=== PATIENT | male | born 1955 | race Caucasian/White ===

== ENCOUNTER → 2017-05-22 | Outpatient (CLI) | payer BC ==
[2017-05-22 07:54] LABS: CHCM 32.1; HCT 41.5 % (39.0-53.0); HDW 2.51; MCH 34.9 pg (25.0-35.0); MCHC 33.8 g/dL (31.0-37.0); MCV 103.4 fL (80.0-100.0); Macrocytosis Slight; Mean Platelet Volume 7.8; RBC 4.01 m/uL (4.30-5.90); RDW 13.2 % (11.5-15.5); WBC 7.1 k/uL (3.8-10.6)
[2017-05-22 08:06] LABS: ALT 25 U/L (21-72); AST 18 U/L (17-59); Anion Gap 8 mmol/L; Blood Urea Nitrogen 18 mg/dL (9-20); Calcium 9.4 mg/dL (8.4-10.2); Carbon Dioxide 27 mmol/L (22-30); Chloride 107 mmol/L (98-107); Cholesterol 215 mg/dL (<200); Creatine Kinase 45 U/L (55-170); Glucose 103 mg/dL (74-99); HDL Cholesterol 71 mg/dL (40-60); Non-African American GFR(MDRD) >60 (>60 ml/min/1.73 sqM); Potassium 4.3 mmol/L (3.5-5.1); Sodium 142 mmol/L (137-145)
== END | disposition home or self-care (01) ==
LOC: LABWHC1 07:04
PROVIDERS: ATTEND Internal Medicine Interventional Cardiology
DX: I25.10 Atherosclerotic heart disease of native coronary artery without angina pectoris (principal)
CPT/HCPCS: 36415; 80048; 80061; 82550; 84443; 84450; 84460; 85027

== ENCOUNTER 2017-10-19 22:16 | Emergency (ER) | payer BC ==
--- NOTE | 2017-10-19 22:39 | ED ---
SOB HPI - General Chief Complaint: Shortness of Breath Stated Complaint: SOB/flu symptoms Time Seen by Provider: 10/19/17 22:32 Source: patient Mode of arrival: wheelchair Limitations: no limitations - History of Present Illness Initial Comments: This patient is 62-year-old man presenting to be evaluated for vomiting and diarrhea, he also did mention the fact that he now has some exertional dyspnea. He was in his usual state of health until Friday when he began having vomiting and diarrhea. He states he had over 10 episodes of each of those. He did not see any blood or coffee-ground material. He was also having a bit of abdominal cramping, but states that the abdominal pain has resolved. Patient states he has not in eating or taking any fluids, and now when he gets up to use the bathroom his heart races and he feels like he is short of breath. -: days(s) Associated Symptoms: nausea/vomiting Treatments Prior to Arrival: none - Related Data Previous Rx's Medication Instructions Recorded Ondansetron Odt [Zofran ODT] 4 mg PO Q8HR PRN #10 tab 10/20/17 Allergies Allergy/AdvReac Type Severity Reaction Status Date / Time Penicillins Allergy Unknown Verified 10/19/17 22:24 Review of Systems ROS Statement: Those systems with pertinent positive or pertinent negative responses have been documented in the HPI. ROS Other: All systems not noted in ROS Statement are negative. Constitutional: Reports: weakness (Generalized). Denies: fever, chills Respiratory: Denies: cough, dyspnea, wheezes Cardiovascular: Reports: as per HPI, palpitations, dyspnea on exertion. Denies : chest pain, edema, syncope Gastrointestinal: Reports: as per HPI, abdominal pain, nausea, vomiting, diarrhea. Denies: constipation, hematemesis, melena, hematochezia Genitourinary: Denies: dysuria, hematuria Musculoskeletal: Denies: back pain Skin: Denies: rash Neurological: Denies: headache, weakness, numbness Past Medical History Past Medical History: GERD/Reflux History of Any Multi-Drug Resistant Organisms: None Reported Past Surgical History: No Surgical Hx Reported Past Psychological History: No Psychological Hx Reported Smoking Status: Former smoker Past Alcohol Use History: None Reported Past Drug Use History: None Reported General Exam Limitations: no limitations General appearance: alert, in no apparent distress Head exam: Present: atraumatic, normocephalic Eye exam: Present: normal appearance ENT exam: Present: normal oropharynx, mucous membranes dry Neck exam: Present: normal inspection, full ROM Respiratory exam: Present: normal lung sounds bilaterally. Absent: respiratory distress, wheezes, rales, rhonchi, stridor Cardiovascular Exam: Present: normal rhythm, tachycardia (Rate approximately 112 my exam), normal heart sounds. Absent: systolic murmur, diastolic murmur, rubs, gallop GI/Abdominal exam: Present: soft, hypoactive bowel sounds. Absent: distended, tenderness, guarding, rebound, rigid, mass, pulsatile mass, hernia Extremities exam: Present: normal inspection, normal capillary refill. Absent: pedal edema, calf tenderness Back exam: Present: normal inspection. Absent: CVA tenderness (R), CVA tenderness (L) Neurological exam: Present: alert Skin exam: Present: warm, dry, intact, normal color. Absent: rash Course Vital Signs 10/19/17 10/19/17 22:21 23:55 Temperature 97.5 F L Pulse Rate 138 H 98 Respiratory 18 Rate Blood Pressure 108/69 O2 Sat by Pulse 98 98 Oximetry Medical Decision Making - Lab Data Result diagrams: 10/19/17 22:56 10/19/17 22:56 Lab Results 10/19/17 10/19/17 10/19/17 Range/Units 22:40 22:56 22:56 WBC 13.3 H (3.8-10.6) k/uL RBC 3.68 L (4.30-5.90) m/uL Hgb 12.3 L (13.0-17.5) gm/dL Hct 34.9 L (39.0-53.0) % MCV 95.0 (80.0-100.0) fL MCH 33.3 (25.0-35.0) pg MCHC 35.1 (31.0-37.0) g/dL RDW 12.6 (11.5-15.5) % Plt Count 365 (150-450) k/uL Neutrophils % 67 % Lymphocytes % 25 % Monocytes % 5 % Eosinophils % 1 % Basophils % 0 % Neutrophils # 9.0 H (1.3-7.7) k/uL Lymphocytes # 3.3 (1.0-4.8) k/uL Monocytes # 0.7 (0-1.0) k/uL Eosinophils # 0.1 (0-0.7) k/uL Basophils # 0.1 (0-0.2) k/uL Sodium 141 (137-145) mmol/L Potassium 3.6 (3.5-5.1) mmol/L Chloride 106 (98-107) mmol/L Carbon Dioxide 23 (22-30) mmol/L Anion Gap 12 mmol/L BUN 32 H (9-20) mg/dL Creatinine 0.80 (0.66-1.25) mg/dL Est GFR (CKD-EPI)AfAm >90 (>60 ml/min/1.73 sqM) Est GFR (CKD-EPI)NonAf >90 (>60 ml/min/1.73 sqM) Glucose 124 H (74-99) mg/dL Calcium 9.4 (8.4-10.2) mg/dL Total Bilirubin 0.4 (0.2-1.3) mg/dL AST 41 (17-59) U/L ALT 61 (21-72) U/L Alkaline Phosphatase 72 (38-126) U/L Total Protein 6.5 (6.3-8.2) g/dL Albumin 3.8 (3.5-5.0) g/dL Amylase 47 (30-110) U/L Lipase 94 (23-300) U/L Urine Color Urine Appearance (Clear) Urine pH (5.0-8.0) Ur Specific Hopkins (1.001-1.035) Urine Protein (Negative) Urine Glucose (UA) (Negative) Urine Ketones (Negative) Urine Blood (Negative) Urine Nitrite (Negative) Urine Bilirubin (Negative) Urine Urobilinogen (<2.0) mg/dL Ur Leukocyte Esterase (Negative) Urine RBC (0-5) /hpf Urine WBC (0-5) /hpf Urine Mucus (None) /hpf Influenza Type A RNA Not Detected (Not Detectd) Influenza Type B (PCR) Not Detected (Not Detectd) 10/20/17 Range/Units 00:23 WBC (3.8-10.6) k/uL RBC (4.30-5.90) m/uL Hgb (13.0-17.5) gm/dL Hct (39.0-53.0) % MCV (80.0-100.0) fL MCH (25.0-35.0) pg MCHC (31.0-37.0) g/dL RDW (11.5-15.5) % Plt Count (150-450) k/uL Neutrophils % % Lymphocytes % % Monocytes % % Eosinophils % % Basophils % % Neutrophils # (1.3-7.7) k/uL Lymphocytes # (1.0-4.8) k/uL Monocytes # (0-1.0) k/uL Eosinophils # (0-0.7) k/uL Basophils # (0-0.2) k/uL Sodium (137-145) mmol/L Potassium (3.5-5.1) mmol/L Chloride (98-107) mmol/L Carbon Dioxide (22-30) mmol/L Anion Gap mmol/L BUN (9-20) mg/dL Creatinine (0.66-1.25) mg/dL Est GFR (CKD-EPI)AfAm (>60 ml/min/1.73 sqM) Est GFR (CKD-EPI)NonAf (>60 ml/min/1.73 sqM) Glucose (74-99) mg/dL Calcium (8.4-10.2) mg/dL Total Bilirubin (0.2-1.3) mg/dL AST (17-59) U/L ALT (21-72) U/L Alkaline Phosphatase (38-126) U/L Total Protein (6.3-8.2) g/dL Albumin (3.5-5.0) g/dL Amylase (30-110) U/L Lipase (23-300) U/L Urine Color Yellow Urine Appearance Clear (Clear) Urine pH 6.0 (5.0-8.0) Ur Specific Hopkins 1.030 (1.001-1.035) Urine Protein 1+ H (Negative) Urine Glucose (UA) Negative (Negative) Urine Ketones Negative (Negative) Urine Blood Negative (Negative) Urine Nitrite Negative (Negative) Urine Bilirubin Negative (Negative) Urine Urobilinogen 2.0 (<2.0) mg/dL Ur Leukocyte Esterase Negative (Negative) Urine RBC 1 (0-5) /hpf Urine WBC 1 (0-5) /hpf Urine Mucus Occasional H (None) /hpf Influenza Type A RNA (Not Detectd) Influenza Type B (PCR) (Not Detectd) - EKG Data -: EKG Interpreted by Me EKG shows normal: sinus rhythm, axis (Normal), intervals (Normal), ST-T waves ( Normal) Rate: tachycardia (Rate 108 bpm) Disposition Clinical Impression: Gastroenteritis Disposition: HOME SELF-CARE Condition: Good Instructions: Gastroenteritis (ED) Prescriptions: Ondansetron Odt [Zofran ODT] 4 mg PO Q8HR PRN #10 tab PRN Reason: Nausea Referrals: None,Stated [Primary Care Provider] - 1-2 days
[2017-10-19] MEDS ORDERED: SODIUM CHLORIDE 0.9% 2,000 ML IV STA (22:49)
[2017-10-19] MEDS ORDERED: ONDANSETRON 4 MG/2 ML VIAL IVP STA (22:49)
[2017-10-19 23:12] LABS: Basophils # (A) 0.1 k/uL (0-0.2); Basophils % (A) 0 %; Eosinophils # (A) 0.1 k/uL (0-0.7); Eosinophils % (A) 1 %; HCT 34.9 % (39.0-53.0); HGB 12.3 gm/dL (13.0-17.5); Lymphocytes # (A) 3.3 k/uL (1.0-4.8); Lymphocytes % (A) 25 %; MCH 33.3 pg (25.0-35.0); MCHC 35.1 g/dL (31.0-37.0); Mean Platelet Volume 7.1; Monocytes # (A) 0.7 k/uL (0-1.0); Monocytes % (A) 5 %; Neutrophils % (A) 67 %; Platelet Count 365 k/uL (150-450); RBC 3.68 m/uL (4.30-5.90); RDW 12.6 % (11.5-15.5); WBC 13.3 k/uL (3.8-10.6)
[2017-10-19 23:16] LABS: ALT 61 U/L (21-72); AST 41 U/L (17-59); Albumin 3.8 g/dL (3.5-5.0); Alkaline Phosphatase 72 U/L (38-126); Amylase 47 U/L (30-110); Anion Gap 12 mmol/L; Blood Urea Nitrogen 32 mg/dL (9-20); Calcium 9.4 mg/dL (8.4-10.2); Carbon Dioxide 23 mmol/L (22-30); Chloride 106 mmol/L (98-107); Glucose 124 mg/dL (74-99); Lipase 94 U/L (23-300); Potassium 3.6 mmol/L (3.5-5.1); Sodium 141 mmol/L (137-145); Total Bilirubin 0.4 mg/dL (0.2-1.3); Total Protein 6.5 g/dL (6.3-8.2)
[2017-10-20 00:52] LABS: Appearance,Urine Clear (Clear); Bilirubin,Urine Negative (Negative); Blood,Urine Negative (Negative); Color,Urine Yellow; Glucose,Urine (UA) Negative (Negative); Ketones,Urine Negative (Negative); Leukocyte Esterase,Urine Negative (Negative); Mucus,Urine Occasional /hpf; Nitrite,Urine Negative (Negative); Protein,Urine 1+ (Negative); RBC,Urine 1 /hpf (0-5); WBC,Urine 1 /hpf (0-5)
[2017-10-20] MEDS ORDERED: SODIUM CHLORIDE 0.9% 1,000 ML IV ONE (00:59)
[2017-10-20] MEDS ORDERED: ONDANSETRON ODT 4 MG TAB PO STA (01:24)
[2017-10-20 01:45] VITALS: BP 123/69; PULSE 96; RESP 16; TEMP 98.2
== END 2017-10-20 01:45 | disposition home or self-care (01) ==
LOC: EC 22:16
DX: K52.9 Noninfective gastroenteritis and colitis, unspecified (principal); Z87.891 Personal history of nicotine dependence; Z88.0 Allergy status to penicillin; Z53.8 Procedure and treatment not carried out for other reasons
CPT/HCPCS: 36415; 93005; 80053; 82150; 83690; 85025; 81001; 87502; 99285; 96374; 96361; J2405

== ENCOUNTER 2017-10-20 13:57 | Inpatient (IN) | payer BC ==
[2017-10-20 14:34] LABS: ALT 39 U/L (21-72); AST 23 U/L (17-59); Albumin 2.5 g/dL (3.5-5.0); Alkaline Phosphatase 47 U/L (38-126); Anion Gap 10 mmol/L; Blood Urea Nitrogen 27 mg/dL (9-20); Calcium 7.7 mg/dL (8.4-10.2); Carbon Dioxide 20 mmol/L (22-30); Chloride 109 mmol/L (98-107); Glucose 186 mg/dL (74-99); Lipase 92 U/L (23-300); Magnesium 1.7 mg/dL (1.6-2.3); Potassium 3.6 mmol/L (3.5-5.1); Sodium 139 mmol/L (137-145); Total Bilirubin 0.2 mg/dL (0.2-1.3); Total Protein 4.6 g/dL (6.3-8.2)
[2017-10-20 14:41] LABS: Basophils % (A) 0 %; Eosinophils # (A) 0.1 k/uL (0-0.7); Eosinophils % (A) 1 %; HCT 22.7 % (39.0-53.0); Lymphocytes # (A) 2.4 k/uL (1.0-4.8); Lymphocytes % (A) 16 %; MCH 33.3 pg (25.0-35.0); MCHC 34.1 g/dL (31.0-37.0); MCV 97.7 fL (80.0-100.0); Mean Platelet Volume 8.2; Monocytes # (A) 0.7 k/uL (0-1.0); Monocytes % (A) 5 %; Neutrophils # (A) 11.9 k/uL (1.3-7.7); Neutrophils % (A) 78 %; Platelet Count 306 k/uL (150-450); RBC 2.32 m/uL (4.30-5.90); RDW 12.8 % (11.5-15.5); WBC 15.2 k/uL (3.8-10.6)
[2017-10-20] MEDS ORDERED: MORPHINE SULFATE 4MG/4ML SYRG IVP STA ×2 (14:42→16:01)
--- NOTE | 2017-10-20 14:42 | ED ---
General Adult HPI - General Chief complaint: GI Bleed Stated complaint: GI BLEED Time Seen by Provider: 10/20/17 14:00 Source: patient, RN notes reviewed Mode of arrival: EMS Limitations: no limitations - History of Present Illness Initial comments: This is a 62-year-old male presents emergency Department stating he's had dark black stools for approximate one week. Patient also has noted that he has had some belly pain and some nausea and vomiting yesterday. Patient came to the emergency department yesterday but did not tell the staff about his black stools. Patient is not complaining of any weakness patient is not quite of shortness of breath or chest pain. Patient denies lightheadedness dizziness or any near syncopal episode. Patient denies any vomiting today but he did vomit yesterday. Patient denies a headache patient denies numbness weakness. Patient denies any recent fever or chills. Patient states she's never had a colonoscopy. Patient denies having a family practice doctor. - Related Data Previous Rx's Medication Instructions Recorded Ondansetron Odt [Zofran ODT] 4 mg PO Q8HR PRN #10 tab 10/20/17 Allergies Allergy/AdvReac Type Severity Reaction Status Date / Time Penicillins Allergy Unknown Verified 10/20/17 14:17 Review of Systems ROS Statement: Those systems with pertinent positive or pertinent negative responses have been documented in the HPI. ROS Other: All systems not noted in ROS Statement are negative. Past Medical History Past Medical History: GERD/Reflux History of Any Multi-Drug Resistant Organisms: None Reported Past Surgical History: No Surgical Hx Reported Past Psychological History: No Psychological Hx Reported Smoking Status: Former smoker Past Alcohol Use History: None Reported Past Drug Use History: None Reported General Exam - General Exam Comments Initial Comments: GENERAL: Patient is well-developed and well-nourished. Patient is nontoxic and well- hydrated and is in mild distress. ENT: Neck is soft and supple. No significant lymphadenopathy is noted. Oropharynx is clear. Moist mucous membranes. Neck has full range of motion without eliciting any pain. EYES: The sclera were anicteric and conjunctiva were pink and moist. Extraocular movements were intact and pupils were equal round and reactive to light. Eyelids were unremarkable. PULMONARY: Unlabored respirations. Good breath sounds bilaterally. No audible rales rhonchi or wheezing was noted. CARDIOVASCULAR: There is a regular rate and rhythm without any murmurs gallops or rubs. ABDOMEN: Soft and nontender with normal bowel sounds. No palpable organomegaly was noted. There is no palpable pulsatile mass. SKIN: Patient's skin is pale. NEUROLOGIC: Patient is alert and oriented x3. Cranial nerves II through XII are grossly intact. Motor and sensory are also intact. Normal speech, volume and content. Symmetrical smile. MUSCULOSKELETAL: Normal extremities with adequate strength and full range of motion. LYMPHATICS: No significant lymphadenopathy is noted PSYCHIATRIC: Normal psychiatric evaluation. Normal interpersonal interactions appears functionally intact in deals appropriately with others. No signs of depression. No signs of anxiety. Limitations: no limitations Course Vital Signs 10/20/17 10/20/17 14:00 14:26 Temperature 97.8 F Pulse Rate 114 H 113 H Respiratory 20 20 Rate Blood Pressure 131/71 116/69 O2 Sat by Pulse 94 L 99 Oximetry Medical Decision Making - Medical Decision Making Patient's guaiac was positive patient's hemoglobin was 7.7 which is a significant drop from yesterday. I ordered a unit of blood for the patient. I spoke with Dr. Jernigan and he agreed to admit the patient. I wrote admitting orders I continued doing CBCs on the floor I consult to GI - Lab Data Result diagrams: 10/20/17 14:10 10/20/17 14:10 Lab Results 10/20/17 10/20/17 10/20/17 Range/Units 14:10 14:10 14:10 WBC 15.2 H (3.8-10.6) k/uL RBC 2.32 L (4.30-5.90) m/uL Hgb 7.7 L D (13.0-17.5) gm/dL Hct 22.7 L (39.0-53.0) % MCV 97.7 (80.0-100.0) fL MCH 33.3 (25.0-35.0) pg MCHC 34.1 (31.0-37.0) g/dL RDW 12.8 (11.5-15.5) % Plt Count 306 (150-450) k/uL Neutrophils % 78 % Lymphocytes % 16 % Monocytes % 5 % Eosinophils % 1 % Basophils % 0 % Neutrophils # 11.9 H (1.3-7.7) k/uL Lymphocytes # 2.4 (1.0-4.8) k/uL Monocytes # 0.7 (0-1.0) k/uL Eosinophils # 0.1 (0-0.7) k/uL Basophils # 0.0 (0-0.2) k/uL PT (9.0-12.0) sec INR (<1.2) APTT (22.0-30.0) sec Sodium 139 (137-145) mmol/L Potassium 3.6 (3.5-5.1) mmol/L Chloride 109 H (98-107) mmol/L Carbon Dioxide 20 L (22-30) mmol/L Anion Gap 10 mmol/L BUN 27 H (9-20) mg/dL Creatinine 0.70 (0.66-1.25) mg/dL Est GFR (CKD-EPI)AfAm >90 (>60 ml/min/1.73 sqM) Est GFR (CKD-EPI)NonAf >90 (>60 ml/min/1.73 sqM) Glucose 186 H (74-99) mg/dL Plasma Lactic Acid Zacarias (0.7-2.0) mmol/L Calcium 7.7 L (8.4-10.2) mg/dL Magnesium 1.7 (1.6-2.3) mg/dL Total Bilirubin 0.2 (0.2-1.3) mg/dL AST 23 (17-59) U/L ALT 39 (21-72) U/L Alkaline Phosphatase 47 (38-126) U/L Total Creatine Kinase 43 L (55-170) U/L Total Protein 4.6 L (6.3-8.2) g/dL Albumin 2.5 L (3.5-5.0) g/dL Lipase 92 (23-300) U/L Stool Occult Blood (Negative) 10/20/17 10/20/17 10/20/17 Range/Units 14:10 14:10 14:10 WBC (3.8-10.6) k/uL RBC (4.30-5.90) m/uL Hgb (13.0-17.5) gm/dL Hct (39.0-53.0) % MCV (80.0-100.0) fL MCH (25.0-35.0) pg MCHC (31.0-37.0) g/dL RDW (11.5-15.5) % Plt Count (150-450) k/uL Neutrophils % % Lymphocytes % % Monocytes % % Eosinophils % % Basophils % % Neutrophils # (1.3-7.7) k/uL Lymphocytes # (1.0-4.8) k/uL Monocytes # (0-1.0) k/uL Eosinophils # (0-0.7) k/uL Basophils # (0-0.2) k/uL PT 10.6 (9.0-12.0) sec INR 1.1 (<1.2) APTT 20.1 L (22.0-30.0) sec Sodium (137-145) mmol/L Potassium (3.5-5.1) mmol/L Chloride (98-107) mmol/L Carbon Dioxide (22-30) mmol/L Anion Gap mmol/L BUN (9-20) mg/dL Creatinine (0.66-1.25) mg/dL Est GFR (CKD-EPI)AfAm (>60 ml/min/1.73 sqM) Est GFR (CKD-EPI)NonAf (>60 ml/min/1.73 sqM) Glucose (74-99) mg/dL Plasma Lactic Acid Zacarias 2.0 (0.7-2.0) mmol/L Calcium (8.4-10.2) mg/dL Magnesium (1.6-2.3) mg/dL Total Bilirubin (0.2-1.3) mg/dL AST (17-59) U/L ALT (21-72) U/L Alkaline Phosphatase (38-126) U/L Total Creatine Kinase (55-170) U/L Total Protein (6.3-8.2) g/dL Albumin (3.5-5.0) g/dL Lipase (23-300) U/L Stool Occult Blood Positive (Negative) Disposition Clinical Impression: Gastrointestinal hemorrhage Disposition: ADMITTED IP TO THIS [facility] Referrals: None,Stated [Primary Care Provider] - 1-2 days Time of Disposition: 15:03
[2017-10-20 14:43] LABS: HGB 7.7 gm/dL (13.0-17.5)
[2017-10-20 14:45] LABS: INR 1.1 (<1.2); Partial Thromboplastin Time 20.1 sec (22.0-30.0); Prothrombin Time 10.6 sec (9.0-12.0)
[2017-10-20 14:57] LABS: Creatine Kinase MB 0.4 ng/mL (0.0-2.4)
[2017-10-20] MEDS ORDERED: SODIUM CHLORIDE 0.9% 1,000 ML IV ONE (15:03)
[2017-10-20 15:10] LABS: Troponin I 0.044 ng/mL (0.000-0.034)
[2017-10-20] MEDS ORDERED: NALOXONE 0.4 MG/ML 1 ML VIAL IV PRN (15:47)
[2017-10-20] MEDS ORDERED: RX INFO: IV CONTRAST WAS GIVEN 1 EACH MISC MISCELLANE PRN (15:53)
[2017-10-20] MEDS ORDERED: SODIUM CHLORIDE 0.9% 1,000 ML IV STA (16:06)
[2017-10-20] MEDS ORDERED: PANTOPRAZOLE 40 MG/10 ML VIAL IVP ONE (16:15)
--- NOTE | 2017-10-20 16:15 | P.HPIM ---
History of Present Illness H&P Date: 10/20/17 Chief Complaint: Weakness, fainting 62-year-old male presents emergency Department because of progressively worsening weakness and shortness of breath. He started getting sick since last when he started having subjective fevers, chills, nausea, vomiting, diarrhea as well as diffuse abdominal pain. Today he almost fainted when he was getting up from his chair. He fell back onto it but did not fall on the floor. He felt his heart pounding but denied having any chest pain. According to him he only had one small episode of dark stools last Friday but denied any other episodes, no merlin hematochezia. No hematemesis. He never had issues with GI bleeding in the past. He has chronic neck and back pain and has been taking [id number] Aleve over the last several months. He stated that he took himself off of narcotics about 9 months ago. He denied eating anything unusual for him before his illness started. No other family member got sick with them. Patient denied having any chest pain. No focal weakness or numbness. In the emergency department he was significantly tachycardic. He was afebrile and his blood pressure was stable. His hemoglobin was significantly low at 7.7 , when he came to the ER yesterday it was 12.3 GI bleeding was suspected and patient was subsequently admitted to the ICU for further evaluation and management. Review of Systems 12 point review of system performed, negative except HPI Past Medical History Past Medical History: GERD/Reflux Additional Past Medical History / Comment(s): History of achalasia status post esophageal dilation 2 in [facility]. Chronic neck and back pain History of Any Multi-Drug Resistant Organisms: None Reported Past Surgical History: Orthopedic Surgery Additional Past Surgical History / Comment(s): Right shoulder rotator cuff repair, neck fusion Past Psychological History: No Psychological Hx Reported Smoking Status: Former smoker Past Alcohol Use History: None Reported Past Drug Use History: None Reported - Past Family History Father Family Medical History: Cancer (Kidney cancer) Medications and Allergies Home Medications Medication Instructions Recorded Confirmed Type Ondansetron Odt [Zofran ODT] 4 mg PO Q8HR PRN #10 tab 10/20/17 10/20/17 Rx Allergies Allergy/AdvReac Type Severity Reaction Status Date / Time Penicillins Allergy Unknown Verified 10/20/17 14:17 Physical Exam Vitals: Vital Signs Temp Pulse Resp BP Pulse Ox 10/20/17 15:14 112 H 18 119/70 100 10/20/17 14:26 113 H 20 116/69 99 10/20/17 14:00 97.8 F 114 H 20 131/71 94 L Intake and Output 10/20/17 10/20/17 10/20/17 06:59 14:59 22:59 Other: Weight 68.039 kg Constitutional: Looks ill, pale Eyes:Anicteric sclerae, pale conjunctiva, no lid-lag, PERRLA, ENMT: Oropharynx clear, no erythema, exudates Neck: Supple, FROM, no masses, or JVD, No carotid bruits, No thyromegaly Lungs: Clear to auscultation, Clear to percussion, Normal respiratory effort, no accessory muscle use Cardiovascular: Tachycardic, regular, No murmurs, gallops, or rubs, No peripheral edema Abdominal: Soft, diffusely tender, voluntary guarding, no rebound tenderness or rigidity, Normoactive bowel sounds, No hepatomegaly, No splenomegaly, No palpable mass Skin: Normal temperature, tone, texture, turgor, no induration, No subcutaneous nodules, No rash, lesions, No ulcers Extremities: No digital cyanosis, No clubbing, Pedal pulses intact and symmetrical, Radial pulses intact and symmetrical, No calf tenderness Psychiatric: Alert and oriented to person, place and time, appropriate affect, intact judgement Neuro: Gen. weakness, no focal signs. Cranial nerves 2-12 within normal limits. Results CBC & Chem 7: 10/20/17 14:10 10/20/17 14:10 Labs: Abnormal Lab Results - Last 24 Hours (Table) 10/20/17 10/20/17 10/20/17 Range/Units 14:10 14:10 14:10 WBC 15.2 H (3.8-10.6) k/uL RBC 2.32 L (4.30-5.90) m/uL Hgb 7.7 L D (13.0-17.5) gm/dL Hct 22.7 L (39.0-53.0) % Neutrophils # 11.9 H (1.3-7.7) k/uL APTT (22.0-30.0) sec Chloride 109 H (98-107) mmol/L Carbon Dioxide 20 L (22-30) mmol/L BUN 27 H (9-20) mg/dL Glucose 186 H (74-99) mg/dL Calcium 7.7 L (8.4-10.2) mg/dL Total Creatine Kinase 43 L (55-170) U/L Troponin I 0.044 H* (0.000-0.034) ng/mL Total Protein 4.6 L (6.3-8.2) g/dL Albumin 2.5 L (3.5-5.0) g/dL 10/20/17 Range/Units 14:10 WBC (3.8-10.6) k/uL RBC (4.30-5.90) m/uL Hgb (13.0-17.5) gm/dL Hct (39.0-53.0) % Neutrophils # (1.3-7.7) k/uL APTT 20.1 L (22.0-30.0) sec Chloride (98-107) mmol/L Carbon Dioxide (22-30) mmol/L BUN (9-20) mg/dL Glucose (74-99) mg/dL Calcium (8.4-10.2) mg/dL Total Creatine Kinase (55-170) U/L Troponin I (0.000-0.034) ng/mL Total Protein (6.3-8.2) g/dL Albumin (3.5-5.0) g/dL Assessment and Plan Plan: #1 Acute GI bleeding Likely upper GI consult Admit to ICU Transfuse 1 unit of packed red blood cells Cycle CBC Protonix IV IV fluids D5 half normal saline as he will be nothing by mouth Counseled to stop taking NSAIDs #2 Leukocytosis/abdominal pain Unclear etiology, could be secondary to the bleeding Rule out acute intra-abdominal process, Will order a stat computed tomography scan of the abdomen and pelvis with IV contrast #3 Elevated troponin Unclear significance since, can be secondary to above Cycle troponins #4 DVT prophylaxis Contraindicated sec to GI bleeding.
--- NOTE | 2017-10-20 16:34 | CT ---
EXAMINATION TYPE: CT abdomen pelvis w con DATE OF EXAM: 10/20/2017 COMPARISON: NONE HISTORY: Abdominal bloating, nausea, vomiting and diarrhea. CT DLP: 614.9 mGycm Automated exposure control for dose reduction was used. TECHNIQUE: Helical acquisition of images from the lung bases through the pelvis have been completed. CONTRAST: Performed without Oral Contrast and with IV Contrast, patient injected with 100 mL of Isovue M300. FINDINGS: LUNG BASES: Minimal basilar atelectasis on the right is suspected. AORTA: No significant abnormality is appreciated. LIVER/GB: No significant abnormality is appreciated. PANCREAS: No significant abnormality is seen. SPLEEN: No significant abnormality is seen. ADRENALS: No significant abnormality is seen. KIDNEYS: Sizable cortical cyst at the lower pole of the right kidney measures approximately 3.6 cm, i t is immediately adjacent to an additional cyst measuring 3 cm, there may be a septation between the 2 cysts. REPRODUCTIVE ORGANS: There are some calcifications associated with the prostate BOWEL: Duodenum shows some wall thickening. There is some increased enhancement at the second and th ird portion. The appendix is normal. FREE AIR: No Free Air visible. ASCITES: None visible. PELVIC ADENOPATHY: None visualized. RETROPERITONEAL ADENOPATHY: No Retroperitoneal Adenopathy visible. URINARY BLADDER: No significant abnormality is seen. There may be a spinal curvature. OSSEOUS STRUCTURES: No significant abnormality is seen. IMPRESSION: CORRELATE FOR DUODENITIS, CONSIDER DIRECT VISUALIZATION FOR FOLLOW-UP.
[2017-10-20 16:37] LABS: Glucose,Whole Blood 135 mg/dL (75-99)
[2017-10-20] MEDS ORDERED: INFLUENZA VACCINE (6 MOS+) 60 MCG/0.5 ML SYRINGE IM ONE (16:38)
[2017-10-20] MEDS: DEXTROSE 5%-0.45% NACL 1,000 ML IV SCH (19:01)
[2017-10-20] MEDS: MORPHINE ORAL SOLN 10 MG/5 ML CUP PO PRN (19:48)
[2017-10-20] MEDS: PANTOPRAZOLE 40 MG/10 ML VIAL IVP SCH (21:15)
[2017-10-21] MEDS: MORPHINE ORAL SOLN 10 MG/5 ML CUP PO PRN ×5 (00:56→20:44)
[2017-10-21 02:26] LABS: Basophils % (A) 0 %; Eosinophils # (A) 0.1 k/uL (0-0.7); Eosinophils % (A) 1 %; HCT 21.9 % (39.0-53.0); HGB 7.4 gm/dL (13.0-17.5); Lymphocytes # (A) 2.9 k/uL (1.0-4.8); Lymphocytes % (A) 34 %; MCH 31.8 pg (25.0-35.0); MCHC 33.6 g/dL (31.0-37.0); MCV 94.6 fL (80.0-100.0); Mean Platelet Volume 9.1; Monocytes # (A) 0.5 k/uL (0-1.0); Monocytes % (A) 5 %; Neutrophils % (A) 58 %; Platelet Count 208 k/uL (150-450); RBC 2.32 m/uL (4.30-5.90); RDW 14.6 % (11.5-15.5); WBC 8.6 k/uL (3.8-10.6)
[2017-10-21 02:41] LABS: Anion Gap 6 mmol/L; Blood Urea Nitrogen 20 mg/dL (9-20); Calcium 7.7 mg/dL (8.4-10.2); Carbon Dioxide 23 mmol/L (22-30); Chloride 109 mmol/L (98-107); Glucose 100 mg/dL (74-99); Magnesium 1.8 mg/dL (1.6-2.3); Phosphorus 2.7 mg/dL (2.5-4.5); Potassium 3.4 mmol/L (3.5-5.1); Sodium 138 mmol/L (137-145)
[2017-10-21] MEDS: DEXTROSE 5%-0.45% NACL 1,000 ML IV SCH ×2 (03:46→16:52)
[2017-10-21] MEDS: POTASSIUM CHLORIDE 10 MEQ in WATER FOR INJECTION 1 100ML.BAG IVPB SCH ×2 (05:50→06:48)
[2017-10-21] MEDS: MAGNESIUM SULFATE-D5W PMX 1 GM in DEXTROSE/WATER 1 100ML.BAG IVPB SCH ×2 (06:19→06:47)
--- NOTE | 2017-10-21 08:15 | P.PN ---
Subjective Progress Note Date: 10/21/17 Principal diagnosis: Abdominal pain Patient is a 62-year-old male with a past medical history of GERD, achalasia status post esophageal dilation 2, and chronic neck and back pain who presented to the emergency department with complaints of weakness and shortness of breath. On arrival to the emergency department he was found to be significantly tachycardic with a pulse of 114. His other vital signs are within normal limits. Laboratory analysis revealed significant anemia with hemoglobin of 7.7. He also appears slightly dehydrated with elevated Bielen and a decreased carbon dioxide. His lactic acid was normal but he did have a slightly elevated white blood cell count. Troponin was also noted to be positive at 0.044. Urinalysis was negative. He was started on IV push Protonix and admitted to the ICU. Due to his abdominal pain he underwent a CT of the abdomen and pelvis which showed duodenitis and suggested direct visualization. He was also noted he has been to the ER the day prior, not complained of any blood in his stool and had hemoglobin of 12.5. He then admitted to one dark tarry stool which he did not realize met blood. He was given 1 unit of packed red blood cells. The next morning his hemoglobin was 7.3. He had not had any episodes of bleeding or bowel movement. He was still feeling short of breath, lightheaded, and as though he would pass out. His troponin was trended and remained flat. Patient seen and examined at bedside. He still feels as though he will pass out. He feels lightheaded and short of breath with even minimal movement. He states that his abdominal pain is slightly better. He has not had a bowel movement since admission. He still is having some nausea. He states that he recently had a stress test with [facility] and everything came back normal. He has no history of a heart attack in the past. Objective - Vital Signs Vital signs: Vital Signs Temp 98.2 F 10/21/17 03:30 Pulse 91 10/21/17 06:00 Resp 12 10/21/17 06:00 BP 102/53 10/21/17 06:00 Pulse Ox 99 10/21/17 06:00 Intake & Output 10/20/17 10/21/17 10/21/17 18:59 06:59 18:59 Intake Total 0 2200 Output Total 1140 Balance 0 1060 Weight 68.039 kg 68.039 kg Intake: IV 1200 Dextrose 5%-0.45% NaCl 1, 1000 000 ml @ 100 mls/hr IV . Q10H GHA[facility]ALA Rx#:[id number] Magnesium Sulfate-D5w Pmx 100 1 gm In Dextrose/Water 1 100ml.bag @ 100 mls/hr IVPB Q1H [facility]ALA Rx#: [id number] Potassium Chloride 10 meq 100 In Water For Injection 1 100ml.bag @ 100 mls/hr IVPB Q1H G[facility]A Rx#: [id number] Intake, IV Titration 1000 Amount Sodium Chloride 0.9% 1, 1000 000 ml @ 999 mls/hr IV . Q1H1M STA Rx#:[id number] Blood Product 0 Rc As-1 Unit 0 [id number] Output: Urine 1140 - Exam General: non toxic, no distress, appears older than stated age, chronically ill- appearing Derm: warm, dry Head: atraumatic, normocephalic, symmetric, temporal wasting Eyes: EOMI, no lid lag, anicteric sclera Mouth: no lip lesion, mucus membranes moist Cardiovascular: S1S2 reg, no murmur, positive posterior tibial pulse bilateral, Lungs: CTA bilateral, no rhonchi, no rales , no accessory muscle use Abdominal: soft, tender to palpation epigastric, no guarding, no appreciable organomegaly Ext: no gross muscle atrophy, no edema, no contractures Neuro: CN II-XI grossly intact, no focal neuro deficits Psych: Alert, oriented, appropriate affect - Labs CBC & Chem 7: 10/21/17 02:07 10/21/17 02:07 Labs: Abnormal Lab Results - Last 24 Hours (Table) 10/20/17 10/20/17 10/20/17 Range/Units 14:10 14:10 14:10 WBC 15.2 H (3.8-10.6) k/uL RBC 2.32 L (4.30-5.90) m/uL Hgb 7.7 L D (13.0-17.5) gm/dL Hct 22.7 L (39.0-53.0) % Neutrophils # 11.9 H (1.3-7.7) k/uL APTT (22.0-30.0) sec Potassium (3.5-5.1) mmol/L Chloride 109 H (98-107) mmol/L Carbon Dioxide 20 L (22-30) mmol/L BUN 27 H (9-20) mg/dL Glucose 186 H (74-99) mg/dL POC Glucose (mg/dL) (75-99) mg/dL Calcium 7.7 L (8.4-10.2) mg/dL Total Creatine Kinase 43 L (55-170) U/L Troponin I 0.044 H* (0.000-0.034) ng/mL Total Protein 4.6 L (6.3-8.2) g/dL Albumin 2.5 L (3.5-5.0) g/dL Crossmatch 10/20/17 10/20/17 10/20/17 Range/Units 14:10 14:10 16:35 WBC (3.8-10.6) k/uL RBC (4.30-5.90) m/uL Hgb (13.0-17.5) gm/dL Hct (39.0-53.0) % Neutrophils # (1.3-7.7) k/uL APTT 20.1 L (22.0-30.0) sec Potassium (3.5-5.1) mmol/L Chloride (98-107) mmol/L Carbon Dioxide (22-30) mmol/L BUN (9-20) mg/dL Glucose (74-99) mg/dL POC Glucose (mg/dL) 135 H (75-99) mg/dL Calcium (8.4-10.2) mg/dL Total Creatine Kinase (55-170) U/L Troponin I (0.000-0.034) ng/mL Total Protein (6.3-8.2) g/dL Albumin (3.5-5.0) g/dL Crossmatch See Detail 10/20/17 10/21/17 10/21/17 Range/Units 20:47 02:07 02:07 WBC (3.8-10.6) k/uL RBC 2.32 L (4.30-5.90) m/uL Hgb 7.4 L (13.0-17.5) gm/dL Hct 21.9 L (39.0-53.0) % Neutrophils # (1.3-7.7) k/uL APTT (22.0-30.0) sec Potassium 3.4 L (3.5-5.1) mmol/L Chloride 109 H (98-107) mmol/L Carbon Dioxide (22-30) mmol/L BUN (9-20) mg/dL Glucose 100 H (74-99) mg/dL POC Glucose (mg/dL) (75-99) mg/dL Calcium 7.7 L (8.4-10.2) mg/dL Total Creatine Kinase (55-170) U/L Troponin I 0.119 H* (0.000-0.034) ng/mL Total Protein (6.3-8.2) g/dL Albumin (3.5-5.0) g/dL Crossmatch 10/21/17 Range/Units 02:07 WBC (3.8-10.6) k/uL RBC (4.30-5.90) m/uL Hgb (13.0-17.5) gm/dL Hct (39.0-53.0) % Neutrophils # (1.3-7.7) k/uL APTT (22.0-30.0) sec Potassium (3.5-5.1) mmol/L Chloride (98-107) mmol/L Carbon Dioxide (22-30) mmol/L BUN (9-20) mg/dL Glucose (74-99) mg/dL POC Glucose (mg/dL) (75-99) mg/dL Calcium (8.4-10.2) mg/dL Total Creatine Kinase (55-170) U/L Troponin I 0.068 H* (0.000-0.034) ng/mL Total Protein (6.3-8.2) g/dL Albumin (3.5-5.0) g/dL Crossmatch Assessment and Plan Assessment: Symptomatic anemia with probable upper GI bleed -1 additional unit of packed red blood cells -Repeat CBC at noon and again in a.m. -PPI -Avoid NSAIDs -GI recommendations appreciated, plan is for EGD and colonoscopy tomorrow. Duodenitis - Await results of EGD may be secondary to ulcer vs recent GI illness. - No indication for ABX at this point in time Elevated troponin, likely secondary to type II non-STEMI -echocardiogram, this has been reviewed and shows a normal ejection fraction -Obtain outpatient records from recent stress test -If chest pain occurs then consider cardiology consult -No aspirin at this time secondary to probable GI bleed Leukocytosis, resolved -Likely reactive Chronic pain - avoid NSAID - Tylenol and ultram Hypokalemia - replace and recheck in AM Hx of Achlasia - S/P dilation X 2 DVT prophylaxis: SCD Discussed with: Patient, nursing, GI Anticipated discharge: 24-[address]: home A total of 35 minutes was spent on the care of this complex patient more than 50 % of the time was spent in counseling and care coordination.
[2017-10-21] MEDS: PANTOPRAZOLE 40 MG/10 ML VIAL IVP SCH ×2 (08:38→20:44)
[2017-10-21 09:19] LABS: Appearance,Urine Clear (Clear); Bilirubin,Urine Negative (Negative); Blood,Urine Negative (Negative); Color,Urine Colorless; Glucose,Urine (UA) Negative (Negative); Ketones,Urine Negative (Negative); Leukocyte Esterase,Urine Negative (Negative); Nitrite,Urine Negative (Negative); Protein,Urine Negative (Negative); Specific Gravity,Urine 1.008 (1.001-1.035); Urobilinogen,Urine <2.0 mg/dL (<2.0)
--- NOTE | 2017-10-21 09:46 | P.CONS ---
History of Present Illness - Reason for Consult Consult date: 10/21/17 Gi bleed Requesting physician: Asa Jernigan - History of Present Illness 62-year-old gentleman with no primary care physician with a past medical history of chronic neck/back pain with previous chronic opioid usage quit 9 months ago, esophageal stricture status post dilation 4-5 years ago at [facility], remote EtOH abuse quit 40 years ago. Patient presented with approximate 2 week history of upper abdominal epigastric pain and change in bowel habits with intermittent constipation and a black-colored bowel movement 4 days ago. He has chronically been on NSAID therapy alternates Motrin/Aleve for years secondary to his neck and back pain. Admission hemoglobin 12.3. Presently 7.4. He's received 1 unit of blood. No recent EGD. No history of colonoscopy. No further black colored bowel movements. Denies hematemesis or hematochezia. No unintentional weight loss or recent alcohol usage. No fever or chills. Additional admission chemistries MCV 95. Platelets 365. INR 1.1. BUN 32. Creatinine 0.8. Hemoccult stool positive. Influenza screen not detected. CT abdomen and pelvis reported some duodenal wall thickening increased enhancement at the second and third portion correlate for duodenitis. Review of Systems Constitutional: Denies fever, chills, sweats, weight gain, or loss. HEENT: Negative for migraines, blurred vision or loss, earaches, drainage, tinnitus, oral mucosal lesions, dysphagia, or odynophagia. Cardiac: Negative for chest pain, arrhythmias, or palpitation. Respiratory: Negative for shortness of breath, hemoptysis, cough, or sputum production. Gastrointestinal: See HPI for pertinent findings. Genitourinary: Negative for hematuria, urgency, frequency, polyuria, dysuria, or penile discharge. Musculoskeletal: Chronic back and neck pain. Neurologic: Negative for stroke or TIA. Endocrine: Negative for thyroid problems. Skin: Negative for rash or itching. Psychiatric: Negative history for depression and anxiety Past Medical History Past Medical History: GERD/Reflux Additional Past Medical History / Comment(s): History of achalasia status post esophageal dilation 2 in [facility]. Chronic neck and back pain History of Any Multi-Drug Resistant Organisms: None Reported Past Surgical History: Orthopedic Surgery Additional Past Surgical History / Comment(s): Right shoulder rotator cuff repair, neck fusion Past Anesthesia/Blood Transfusion Reactions: Previous Problems w/ Anesthesia Additional Past Anesthesia/Blood Transfusion Reaction / Comm: "they had difficult time getting him to go under" Smoking Status: Former smoker - Past Family History Father Family Medical History: Cancer (Kidney cancer) Additional Family Medical History / Comment(s): bladder cancer, triple cabg Mother Family Medical History: Chest Pain / Angina, COPD Additional Family Medical History / Comment(s): emphysema Medications and Allergies Home Medications Medication Instructions Recorded Confirmed Type Ondansetron Odt [Zofran ODT] 4 mg PO Q8HR PRN #10 tab 10/20/17 10/20/17 Rx Allergies Allergy/AdvReac Type Severity Reaction Status Date / Time Penicillins Allergy Unknown Verified 10/20/17 14:17 Physical Exam Vitals: Vital Signs Temp Pulse Resp BP Pulse Ox 10/21/17 09:00 99 16 125/74 99 10/21/17 08:00 102 H 16 138/75 100 10/21/17 07:30 94 16 119/64 99 10/21/17 07:00 103 H 16 119/64 100 10/21/17 06:30 98 16 102/53 100 10/21/17 06:00 91 12 102/53 99 10/21/17 05:30 88 16 134/60 99 10/21/17 05:00 89 14 134/60 100 10/21/17 04:30 95 16 101/55 100 10/21/17 04:00 85 101/55 99 10/21/17 03:58 16 10/21/17 03:30 98.2 F 83 100 10/21/17 03:00 87 16 103/64 99 10/21/17 02:30 89 99 10/21/17 02:00 86 16 113/64 99 10/21/17 01:30 106 H 100 10/21/17 01:00 92 16 104/62 99 10/21/17 00:30 90 99 10/21/17 00:00 98.2 F 92 16 121/71 100 10/20/17 23:30 94 16 99 10/20/17 23:11 99 99 10/20/17 23:08 16 10/20/17 23:00 92 128/72 98 10/20/17 22:30 93 100 10/20/17 22:00 95 100/65 100 10/20/17 21:30 92 99 10/20/17 21:00 94 117/66 100 10/20/17 20:30 96 100 10/20/17 20:00 98.3 F 96 16 116/75 100 10/20/17 19:30 104 H 100 10/20/17 19:00 99 114/75 100 10/20/17 18:50 97 114/75 100 10/20/17 18:40 108 H 114/75 100 10/20/17 18:30 99 114/75 100 10/20/17 18:20 107 H 114/75 100 10/20/17 18:10 110 H 114/75 100 10/20/17 18:00 107 H 114/75 100 10/20/17 17:55 99.0 F 99 16 114/75 10/20/17 17:50 108 H 114/75 100 10/20/17 17:40 112 H 114/75 100 10/20/17 17:30 111 H 114/75 100 10/20/17 17:25 98.9 F 112 H 17 114/75 10/20/17 17:20 109 H 122/76 100 10/20/17 17:15 97.7 F 111 H 18 122/76 10/20/17 17:10 110 H 122/76 100 10/20/17 17:00 115 H 122/76 100 10/20/17 16:50 112 H 122/76 100 10/20/17 16:40 97.8 F 110 H 122/76 98 10/20/17 16:35 109 H 10/20/17 15:14 112 H 18 119/70 100 10/20/17 14:26 113 H 20 116/69 99 10/20/17 14:00 97.8 F 114 H 20 131/71 94 L Intake and Output 10/20/17 10/21/17 10/21/17 22:59 06:59 14:59 Intake Total 1300 1000 640 Output Total 540 600 300 Balance 760 400 340 Intake: IV 300 1000 400 Dextrose 5%-0.45% NaCl 1, 300 800 200 000 ml @ 100 mls/hr IV . Q10H [facility]HAZALA Rx#:[id number] Magnesium Sulfate-D5w Pmx 100 100 1 gm In Dextrose/Water 1 100ml.bag @ 100 mls/hr IVPB Q1H GHAZALA Rx#: [id number] Potassium Chloride 10 meq 100 100 In Water For Injection 1 100ml.bag @ 100 mls/hr IVPB Q1H GHAZALA Rx#: [id number] Intake, IV Titration 1000 Amount Sodium Chloride 0.9% 1, 1000 000 ml @ 999 mls/hr IV . Q1H1M STA Rx#:[id number] Oral 240 Blood Product 0 Rc As-1 Unit 0 [id number] Output: Urine 540 600 300 Other: Weight 68.039 kg 69 kg General appearance: The patient is alert, oriented, in no acute distress. HET: Head is normocephalic and atraumatic. Pupils are equal and reactive. Oropharynx is clear without lesions. Neck: Supple without lymphadenopathy. Trachea midline. Heart: S1 S2. Regular rate and rhythm. Lungs: No crackles or wheezes are heard. Abdomen: Soft, very mild tenderness midepigastrium, nondistended with bowel sounds. No peritoneal signs. No palpable organomegaly or masses. Extremities: Normal skin color and turgor. No cyanosis, rash, ulceration, clubbing, or edema. Radial and pedal pulses are 2/4 bilaterally. Neurological: No focal deficits. Strength and sensation are grossly intact. Results CBC & Chem 7: 10/21/17 02:07 10/21/17 02:07 Labs: Abnormal Lab Results - Last 24 Hours (Table) 10/20/17 10/20/17 10/20/17 Range/Units 14:10 14:10 14:10 WBC 15.2 H (3.8-10.6) k/uL RBC 2.32 L (4.30-5.90) m/uL Hgb 7.7 L D (13.0-17.5) gm/dL Hct 22.7 L (39.0-53.0) % Neutrophils # 11.9 H (1.3-7.7) k/uL APTT (22.0-30.0) sec Potassium (3.5-5.1) mmol/L Chloride 109 H (98-107) mmol/L Carbon Dioxide 20 L (22-30) mmol/L BUN 27 H (9-20) mg/dL Glucose 186 H (74-99) mg/dL POC Glucose (mg/dL) (75-99) mg/dL Calcium 7.7 L (8.4-10.2) mg/dL Total Creatine Kinase 43 L (55-170) U/L Troponin I 0.044 H* (0.000-0.034) ng/mL Total Protein 4.6 L (6.3-8.2) g/dL Albumin 2.5 L (3.5-5.0) g/dL Crossmatch 10/20/17 10/20/17 10/20/17 Range/Units 14:10 14:10 16:35 WBC (3.8-10.6) k/uL RBC (4.30-5.90) m/uL Hgb (13.0-17.5) gm/dL Hct (39.0-53.0) % Neutrophils # (1.3-7.7) k/uL APTT 20.1 L (22.0-30.0) sec Potassium (3.5-5.1) mmol/L Chloride (98-107) mmol/L Carbon Dioxide (22-30) mmol/L BUN (9-20) mg/dL Glucose (74-99) mg/dL POC Glucose (mg/dL) 135 H (75-99) mg/dL Calcium (8.4-10.2) mg/dL Total Creatine Kinase (55-170) U/L Troponin I (0.000-0.034) ng/mL Total Protein (6.3-8.2) g/dL Albumin (3.5-5.0) g/dL Crossmatch See Detail 10/20/17 10/21/17 10/21/17 Range/Units 20:47 02:07 02:07 WBC (3.8-10.6) k/uL RBC 2.32 L (4.30-5.90) m/uL Hgb 7.4 L (13.0-17.5) gm/dL Hct 21.9 L (39.0-53.0) % Neutrophils # (1.3-7.7) k/uL APTT (22.0-30.0) sec Potassium 3.4 L (3.5-5.1) mmol/L Chloride 109 H (98-107) mmol/L Carbon Dioxide (22-30) mmol/L BUN (9-20) mg/dL Glucose 100 H (74-99) mg/dL POC Glucose (mg/dL) (75-99) mg/dL Calcium 7.7 L (8.4-10.2) mg/dL Total Creatine Kinase (55-170) U/L Troponin I 0.119 H* (0.000-0.034) ng/mL Total Protein (6.3-8.2) g/dL Albumin (3.5-5.0) g/dL Crossmatch 10/21/17 Range/Units 02:07 WBC (3.8-10.6) k/uL RBC (4.30-5.90) m/uL Hgb (13.0-17.5) gm/dL Hct (39.0-53.0) % Neutrophils # (1.3-7.7) k/uL APTT (22.0-30.0) sec Potassium (3.5-5.1) mmol/L Chloride (98-107) mmol/L Carbon Dioxide (22-30) mmol/L BUN (9-20) mg/dL Glucose (74-99) mg/dL POC Glucose (mg/dL) (75-99) mg/dL Calcium (8.4-10.2) mg/dL Total Creatine Kinase (55-170) U/L Troponin I 0.068 H* (0.000-0.034) ng/mL Total Protein (6.3-8.2) g/dL Albumin (3.5-5.0) g/dL Crossmatch CT scan - abdomen: report reviewed (Dr. Gurrola) Assessment and Plan (1) Acute GI bleeding Narrative/Plan: 62-year-old gentleman with a history of long-standing opioid usage discontinue 9 months ago with chronic NSAID usage for chronic neck and back pain presents with 2 week history of midepigastric abdominal pain with melena change in bowel habits with acute blood loss anemia suggestive of possible peptic ulcer disease duodenitis. Small bowel pathology possible colonic pathology cannot be excluded. No history of baseline screening colonoscopy. Current Visit: Yes Status: Acute Code(s): K92.2 - GASTROINTESTINAL HEMORRHAGE, UNSPECIFIED SNOMED Code(s): 28681375 (2) Acute blood loss anemia Current Visit: Yes Status: Acute Code(s): D62 - ACUTE POSTHEMORRHAGIC ANEMIA SNOMED Code(s): 771112075 (3) NSAID long-term use Current Visit: Yes Status: Acute Code(s): Z79.1 - DETENTION (CURRENT) USE OF NON-STEROIDAL NON-INFLAM (NSAID) SNOMED Code(s): 793568508 (4) Melena Current Visit: Yes Status: Acute Code(s): K92.1 - MELENA SNOMED Code(s): 3193530 (5) S/P dilatation of esophageal stricture Current Visit: Yes Status: Resolved Code(s): Z98.890 - OTHER SPECIFIED POSTPROCEDURAL STATES; Z87.19 - PERSONAL HISTORY OF OTHER DISEASES OF THE DIGESTIVE SYSTEM SNOMED Code(s): 987859429 Plan: 1. EGD colonoscopy scheduled tomorrow. 2. Clear liquids nothing by mouth after midnight. 3. CBC at noon; if less than 7 we'll transfuse additional unit of blood per discussion with [employer] operations intelligence officer Dr. Alejandra. 4. Protonix 40 mg IV twice daily. 5. No NSAIDs or aspirin. The learning support assistant has discussed the risks, benefits and alternative therapies for the above-mentioned procedure and for both sedation/analgesia as well as necessary blood product administration, if indicated, as they pertain to this patient. The patient has indicated understanding and acceptance of the risks and procedures discussed. Thank you for this kind referral and the opportunity to participate in the care of your patient. This consultation was discussed with Dr. Gurrola. The impression and plan of care have been directed as dictated.
--- NOTE | 2017-10-21 09:49 | P.CNPUL ---
History of Present Illness Consult date: 10/21/17 Requesting physician: Telma Hanson Reason for consult: other Chief complaint: Acute blood loss anemia, melena History of present illness: Mr. Connell is a 62-year-old white male patient, who presented to the emergency department on 10/19/2017 with weakness, and episode of black tarry stool a week ago. Patient's hemoglobin on 10/19/2017 was at 12.3, patient did not initially admit to having melena and he was discharged home on the same night. However the next day on 10/20/2017 patient became progressively weaker, had a syncopal episode at home, pounding in the chest, abdominal discomfort, nausea and vomiting. This time patient's hemoglobin was down to 7.7 and the patient was admitted to the intensive care. Patient has history of chronic back and neck pain and patient has been taken [id number] Motrin, up to 6 a day in addition to Excedrin for the past several months. His initial lab work showed a hemoglobin 12.3 on 10/19/2017, however the subsequent draw showed hemoglobin of 7.7 on 10/20/2017. He was transfused with 1 unit of packed red blood cells, on today's lab work his hemoglobin is 7.4, patient has not had any further bleeding. Patient has not required any vasopressor support, he is receiving D5 0.45 normal saline at a rate of 100 ML per hour. He was started on PPIs, Protonix 40 mg IV twice a day. CT of the abdomen and pelvis showed duodenitis. Past medical history includes GERD/reflux, history of achalasia status post esophageal dilation 2 at [facility] in 2011, past history of nicotine dependence for 20 years, quit in 1994. Patient remains nothing by mouth, he was seen in consultation by GI service this morning, and the plan is to proceed with EGD and colonoscopy tomorrow on 10/22/2017. On today's evaluation patient still complaining of exertional dyspnea, weakness, fatigue, still complaining of some palpitations. He remains sinus rhythm to sinus tach on the monitor with a heart rate up to 100 bpm, remains hemodynamically stable. Patient didn' t have mild leukocytosis on admission with WBC 15.2, and has remained afebrile, was also found to have positive troponin, which topped out at 0.044. He states he saw Dr. Mckeon from [facility] in the fall of 2016, had underwent stress test which was normal. Review of Systems All systems: negative Constitutional: Denies chills, Denies fever Eyes: denies blurred vision, denies pain Ears, nose, mouth and throat: Denies headache, Denies sore throat Cardiovascular: Denies chest pain, Denies shortness of breath Respiratory: Denies cough Gastrointestinal: Denies abdominal pain, Denies diarrhea, Denies nausea, Denies vomiting Musculoskeletal: Denies myalgias Integumentary: Denies pruritus, Denies rash Neurological: Denies numbness, Denies weakness Psychiatric: Denies anxiety, Denies depression Endocrine: Denies fatigue, Denies weight change Past Medical History Past Medical History: GERD/Reflux Additional Past Medical History / Comment(s): History of achalasia status post esophageal dilation 2 in [facility]. Chronic neck and back pain History of Any Multi-Drug Resistant Organisms: None Reported Past Surgical History: Orthopedic Surgery Additional Past Surgical History / Comment(s): Right shoulder rotator cuff repair, neck fusion Past Anesthesia/Blood Transfusion Reactions: Previous Problems w/ Anesthesia Additional Past Anesthesia/Blood Transfusion Reaction / Comment(s): "they had difficult time getting him to go under" Smoking Status: Former smoker - Past Family History Father Family Medical History: Cancer (Kidney cancer) Additional Family Medical History / Comment(s): bladder cancer, triple cabg Mother Family Medical History: Chest Pain / Angina, COPD Additional Family Medical History / Comment(s): emphysema Medications and Allergies Home Medications Medication Instructions Recorded Confirmed Type Ondansetron Odt [Zofran ODT] 4 mg PO Q8HR PRN #10 tab 10/20/17 10/20/17 Rx Allergies Allergy/AdvReac Type Severity Reaction Status Date / Time Penicillins Allergy Unknown Verified 10/20/17 14:17 Physical Exam Vitals: Vital Signs Temp Pulse Resp BP Pulse Ox 10/21/17 08:00 102 H 16 138/75 100 10/21/17 07:30 94 16 119/64 99 10/21/17 07:00 103 H 16 119/64 100 10/21/17 06:30 98 16 102/53 100 10/21/17 06:00 91 12 102/53 99 10/21/17 05:30 88 16 134/60 99 10/21/17 05:00 89 14 134/60 100 10/21/17 04:30 95 16 101/55 100 10/21/17 04:00 85 101/55 99 10/21/17 03:58 16 10/21/17 03:30 98.2 F 83 100 10/21/17 03:00 87 16 103/64 99 10/21/17 02:30 89 99 10/21/17 02:00 86 16 113/64 99 10/21/17 01:30 106 H 100 10/21/17 01:00 92 16 104/62 99 10/21/17 00:30 90 99 10/21/17 00:00 98.2 F 92 16 121/71 100 10/20/17 23:30 94 16 99 10/20/17 23:11 99 99 10/20/17 23:08 16 10/20/17 23:00 92 128/72 98 10/20/17 22:30 93 100 10/20/17 22:00 95 100/65 100 10/20/17 21:30 92 99 10/20/17 21:00 94 117/66 100 10/20/17 20:30 96 100 10/20/17 20:00 98.3 F 96 16 116/75 100 10/20/17 19:30 104 H 100 10/20/17 19:00 99 114/75 100 10/20/17 18:50 97 114/75 100 10/20/17 18:40 108 H 114/75 100 10/20/17 18:30 99 114/75 100 10/20/17 18:20 107 H 114/75 100 10/20/17 18:10 110 H 114/75 100 10/20/17 18:00 107 H 114/75 100 10/20/17 17:55 99.0 F 99 16 114/75 10/20/17 17:50 108 H 114/75 100 10/20/17 17:40 112 H 114/75 100 10/20/17 17:30 111 H 114/75 100 10/20/17 17:25 98.9 F 112 H 17 114/75 10/20/17 17:20 109 H 122/76 100 10/20/17 17:15 97.7 F 111 H 18 122/76 10/20/17 17:10 110 H 122/76 100 10/20/17 17:00 115 H 122/76 100 10/20/17 16:50 112 H 122/76 100 10/20/17 16:40 97.8 F 110 H 122/76 98 10/20/17 16:35 109 H 10/20/17 15:14 112 H 18 119/70 100 10/20/17 14:26 113 H 20 116/69 99 10/20/17 14:00 97.8 F 114 H 20 131/71 94 L Intake and Output 10/20/17 10/21/17 10/21/17 22:59 06:59 14:59 Intake Total 1300 1000 300 Output Total 540 600 Balance 760 400 300 Intake: IV 300 1000 300 Dextrose 5%-0.45% NaCl 1, 300 800 100 000 ml @ 100 mls/hr IV . Q10H GHAZALA Rx#:[id number] Magnesium Sulfate-D5w Pmx 100 100 1 gm In Dextrose/Water 1 100ml.bag @ 100 mls/hr IVPB Q1H GHAZALA Rx#: [id number] Potassium Chloride 10 meq 100 100 In Water For Injection 1 100ml.bag @ 100 mls/hr IVPB Q1H GHAZALA Rx#: [id number] Intake, IV Titration 1000 Amount Sodium Chloride 0.9% 1, 1000 000 ml @ 999 mls/hr IV . Q1H1M STA Rx#:[id number] Blood Product 0 Rc As-1 Unit 0 [id number] Output: Urine 540 600 Other: Weight 68.039 kg 69 kg GENERAL EXAM: Alert, pleasant 62-year-old white male, resting in bed, slightly pale, but in no apparent distress. HEAD: Normocephalic/atraumatic. EYES: Normal reaction of pupils, equal size. Conjunctiva pink, sclera white. NOSE: Clear with pink turbinates. THROAT: No erythema or exudates. NECK: No masses, no JVD, no thyroid enlargement, no adenopathy. CHEST: No chest wall deformity. Symmetrical expansion. LUNGS: Diminished breath sounds bilaterally, with slight prolongation of expiratory phase, and faint wheeze on forced exhale maneuver. CVS: Regular rate and rhythm, normal S1 and S2, no gallops, no murmurs, no rubs ABDOMEN: Soft, nontender. No hepatosplenomegaly, normal bowel sounds, no guarding or rigidity. EXTREMITIES: No clubbing, no edema, no cyanosis, 2+ pulses and upper and lower extremities. MUSCULOSKELETAL: Muscle strength and tone normal. SPINE: No scoliosis or deformity SKIN: No rashes CENTRAL NERVOUS SYSTEM: Alert and oriented -3. No focal deficits, tone is normal in all 4 extremities. PSYCHIATRIC: Alert and oriented -3. Appropriate affect. Intact judgment and insight. Results - Laboratory Findings CBC and BMP: 10/21/17 02:07 10/21/17 02:07 PT/INR, D-dimer PT 10.6 sec (9.0-12.0) 10/20/17 14:10 INR 1.1 (<1.2) 10/20/17 14:10 Abnormal lab findings: Abnormal Labs 10/20/17 10/20/17 10/20/17 14:10 14:10 14:10 WBC 15.2 H RBC 2.32 L Hgb 7.7 L D Hct 22.7 L Neutrophils # 11.9 H APTT Potassium Chloride 109 H Carbon Dioxide 20 L BUN 27 H Glucose 186 H POC Glucose (mg/dL) Calcium 7.7 L Total Creatine Kinase 43 L Troponin I 0.044 H* Total Protein 4.6 L Albumin 2.5 L Crossmatch 10/20/17 10/20/17 10/20/17 14:10 14:10 16:35 WBC RBC Hgb Hct Neutrophils # APTT 20.1 L Potassium Chloride Carbon Dioxide BUN Glucose POC Glucose (mg/dL) 135 H Calcium Total Creatine Kinase Troponin I Total Protein Albumin Crossmatch See Detail 10/20/17 10/21/17 10/21/17 20:47 02:07 02:07 WBC RBC 2.32 L Hgb 7.4 L Hct 21.9 L Neutrophils # APTT Potassium 3.4 L Chloride 109 H Carbon Dioxide BUN Glucose 100 H POC Glucose (mg/dL) Calcium 7.7 L Total Creatine Kinase Troponin I 0.119 H* Total Protein Albumin Crossmatch 10/21/17 02:07 WBC RBC Hgb Hct Neutrophils # APTT Potassium Chloride Carbon Dioxide BUN Glucose POC Glucose (mg/dL) Calcium Total Creatine Kinase Troponin I 0.068 H* Total Protein Albumin Crossmatch - Diagnostic Findings Chest x-ray: report reviewed Additional studies: CT of the abdomen and pelvis reviewed Assessment and Plan Plan: Assessment: #1. Acute symptomatic blood loss anemia, CT of abdomen and pelvis showed duodenitis, patient had one week history of black tarry stools and several months history of NSAID use. Admission hemoglobin on 10/19/2017 was 12.3, and subsequently went down to 7.7 10/20/2017. Patient was transfused with 1 unit of PRBCs #2. Chronic neck pain, history of cervical fusion 35 years ago. He has been taking up to 6 Motrin and Excedrin daily #3. Elevation of troponins, probably secondary to supply and demand mismatch related to profound anemia or graft #4. History of esophageal achalasia, status post dilatation at the [facility] in 2011 #5. Syncope, weakness, exertional dyspnea secondary to profound anemia #6. History of nicotine dependence, currently in remission Plan: Continue with PPI Protonix 40 mg twice a day, we'll hold the transfusion of the second unit of PRBC unless the patient starts actively bleeding again. Current hemoglobin is 7.4, patient has had no active bleeding since admission. Hemodynamically stable. We'll recheck hemoglobin through the day today. Patient will have the EGD and colonoscopy tomorrow. I performed a history & physical examination of the patient and discussed their management with my nurse practitioner, Pallavi Solorio. I reviewed the nurse practitioner's note and agree with the documented findings and plan of care. Lung sounds are diminished. The findings and the impression was discussed with the patient. I attest to the documentation by the nurse practitioner. Time with Patient: Greater than 30
--- NOTE | 2017-10-21 11:05 | ECHOF ---
Referral Reason:elevated troponin shortness of breath MEASUREMENTS -------- HEIGHT: 182.9 cm WEIGHT: 68.0 kg BP: IVSd: 1.1 cm (0.6 - 1.1) LVIDd: 3.7 cm (3.9 - 5.3) LVPWd: 1.3 cm (0.6 - 1.1) IVSs: 1.3 cm LVIDs: 2.3 cm LVPWs: 1.5 cm LA Diam: 2.6 cm (2.7 - 3.8) Ao Diam: 2.9 cm (2.0 - 3.7) AV Cusp: 1.0 cm (1.5 - 2.6) LA Diam: 2.8 cm (2.7 - 3.8) MV EXCURSION: 18.048 mm (> 18.000) MV EF SLOPE: 65 mm/s (70 - 150) EPSS: 0.4 cm MV E Vlad: 0.83 m/s MV DecT: 215 ms MV A Vlad: 1.17 m/s MV E/A Ratio: 0.70 RAP: 5.00 mmHg RVSP: 17.49 mmHg FINDINGS -------- Undetermined rhythm. This was a technically good study. LV size, wall thickness and systolic function are normal, with an EF greater than 55%. The left zoe tricular size is normal. The right ventricle is normal in size. The left atrial size is normal. The right atrial size is normal. There is mild aortic valve sclerosis. There is no evidence of aortic regurgitation. Mild mitral annular calcification present. Mild mitral regurgitation is present. Mild tricuspid regurgitation present. There is no evidence of pulmonary hypertension. The right v entricular systolic pressure, as measured by Doppler, is 17.49mmHg. There is no pulmonic regurgitation present. The aortic root size is normal. There is no pericardial effusion. CONCLUSIONS -------- 1. LV size, wall thickness and systolic function are normal, with an EF greater than 55%. 2. The left ventricular size is normal. 3. There is mild aortic valve sclerosis. 4. Mild mitral annular calcification present. 5. Mild mitral regurgitation is present. 6. Mild tricuspid regurgitation present. 7. There is no evidence of pulmonary hypertension. 8. The right ventricular systolic pressure, as measured by Doppler, is 17.49mmHg. 9. There is no pulmonic regurgitation present. 10. The aortic root size is normal. 11. There is no pericardial effusion. DISPENSING AND MEASURING OPTICIAN: Chica Wood RDCS
[2017-10-21 12:43] LABS: Basophils % (A) 0 %; Eosinophils # (A) 0.2 k/uL (0-0.7); Eosinophils % (A) 2 %; HCT 25.1 % (39.0-53.0); HGB 8.5 gm/dL (13.0-17.5); Lymphocytes # (A) 2.1 k/uL (1.0-4.8); Lymphocytes % (A) 22 %; MCH 32.2 pg (25.0-35.0); MCHC 33.8 g/dL (31.0-37.0); MCV 95.2 fL (80.0-100.0); Mean Platelet Volume 8.1; Monocytes # (A) 0.5 k/uL (0-1.0); Monocytes % (A) 5 %; Neutrophils # (A) 6.8 k/uL (1.3-7.7); Neutrophils % (A) 70 %; Platelet Count 227 k/uL (150-450); RBC 2.64 m/uL (4.30-5.90); RDW 14.5 % (11.5-15.5); WBC 9.7 k/uL (3.8-10.6)
[2017-10-21] MEDS ORDERED: PEG 3350-NA SULF,BICARB,CL/KCL 4,000 ML BOTTLE PO ONE (16:00)
[2017-10-21] MEDS ORDERED: LACTATED RINGERS 1,000 ML IV SCH (22:15)
[2017-10-22] MEDS: MORPHINE ORAL SOLN 10 MG/5 ML CUP PO PRN ×2 (01:35→10:20)
[2017-10-22] MEDS: DEXTROSE 5%-0.45% NACL 1,000 ML IV SCH ×2 (01:36→08:32)
[2017-10-22 05:02] LABS: Lymphocytes % (A) 21 %; Mean Platelet Volume 7.5
[2017-10-22 05:05] LABS: Basophils % (A) 0 %; Eosinophils # (A) 0.1 k/uL (0-0.7); Eosinophils % (A) 2 %; HCT 20.8 % (39.0-53.0); HGB 7.1 gm/dL (13.0-17.5); Lymphocytes # (A) 1.3 k/uL (1.0-4.8); MCH 32.5 pg (25.0-35.0); MCHC 34.3 g/dL (31.0-37.0); MCV 94.7 fL (80.0-100.0); Monocytes # (A) 0.3 k/uL (0-1.0); Monocytes % (A) 5 %; Neutrophils # (A) 4.4 k/uL (1.3-7.7); Neutrophils % (A) 71 %; Platelet Count 232 k/uL (150-450); RDW 14.4 % (11.5-15.5); WBC 6.3 k/uL (3.8-10.6)
[2017-10-22 05:12] LABS: Anion Gap 7 mmol/L; Blood Urea Nitrogen 10 mg/dL (9-20); Carbon Dioxide 27 mmol/L (22-30); Chloride 105 mmol/L (98-107); Glucose 105 mg/dL (74-99); Phosphorus 2.8 mg/dL (2.5-4.5); Potassium 3.1 mmol/L (3.5-5.1); Sodium 139 mmol/L (137-145)
[2017-10-22] MEDS ORDERED: LIDOCAINE 1% INJ 10MG/ML (20 ML MDV) ONE (07:18)
[2017-10-22] MEDS ORDERED: PROPOFOL 10 MG/ML 20 ML VIAL IV ONE (07:18)
[2017-10-22] MEDS ORDERED: IV FLUID CONTINUATION 1,000 ML IV ONE (07:21)
--- NOTE | 2017-10-22 07:50 | P.PCN ---
Date of Procedure: 10/22/17 Procedure(s) Performed: Brief history: Patient is a pleasant 62-year-old white male admitted to the hospital with acute GI bleed. He had 2 episodes of black tarry stools and drop his hemoglobin from 12-7 g/dL. CT of the abdomen showed thickened duodenum. He is scheduled scheduled for an upper endoscopy as well as colonoscopy as a part of evaluation of to GI bleed. Procedure performed: Esophagogastroduodenoscopy with biopsy Colonoscopy Preoperative diagnosis: Acute GI bleed Anesthesia: MAC Procedure: After informed consent was obtained from the patient was brought into the endoscopy unit and IV sedation was administered by anesthesia under continuous monitoring. Initially upper endoscopy was done. The Olympus GF 160 video endoscope was inserted inserted into the mouth and esophagus intubated without any difficulty and was gradually advanced into the stomach and duodenum and carefully examined. In the duodenal bulb, along the duodenal sweep there was a 1.5-2 cm clean-based ulcer with no active bleeding.. The scope was then withdrawn into the stomach adequately insufflated with air and upon careful examination the antrum had mild gastritis and biopsies were done from this area. The body, cardia and fundus appeared normal. The scope was then withdrawn into the esophagus. The GE junction was located at 40 cm to the incisors. It appeared regular with no erythema erosions or ulcerations. Rest of the esophagus appeared normal. Patient tolerated the procedure well. At this time the patient continued to remain sedation. Initial digital rectal examination was normal. Olympus CF 160 video colonoscope was then inserted into the rectum and gradually advanced to the cecum without any difficulty. Careful examination was performed as the scope was gradually being withdrawn. The prep was excellent. There was dilated old blood throughout the entire colon which was thoroughly irrigated and aspirated. The cecum, ascending colon , transverse colon, descending colon, sigmoid colon and rectum appeared normal. Retroflexion was performed in the rectum and no lesions were noted. Patient tolerated the procedure well. Impression: 1. Upper endoscopy revealed a 1.5-2 cm clean-based ulcer along the duodenal sweep with no active bleeding and mild antral gastritis 2. Colonoscopy was essentially within normal limits with no evidence of colitis or colorectal neoplasia. blood seen throughout the entire colon. Recommendations: Findings of this examination were discussed with the patient. He will be continued on Protonix 40 mg twice daily and he will be started on full liquid diet today. Await biopsy results.
[2017-10-22] MEDS: POTASSIUM CHLORIDE 20 MEQ in WATER FOR INJECTION 1 100ML.BAG IVPB SCH ×3 (08:38→13:24)
[2017-10-22] MEDS: PANTOPRAZOLE 40 MG/10 ML VIAL IVP SCH ×2 (08:38→21:29)
--- NOTE | 2017-10-22 09:45 | P.PN ---
Subjective Progress Note Date: 10/22/17 Principal diagnosis: Acute blood loss anemia, melena Mr. Connell is a 62-year-old white male patient, who presented to the emergency department on 10/19/2017 with weakness, and episode of black tarry stool a week ago. Patient's hemoglobin on 10/19/2017 was at 12.3, patient did not initially admit to having melena and he was discharged home on the same night. However the next day on 10/20/2017 patient became progressively weaker, had a syncopal episode at home, pounding in the chest, abdominal discomfort, nausea and vomiting. This time patient's hemoglobin was down to 7.7 and the patient was admitted to the intensive care. Patient has history of chronic back and neck pain and patient has been taken [id number] Motrin, up to 6 a day in addition to Excedrin for the past several months. His initial lab work showed a hemoglobin 12.3 on 10/19/2017, however the subsequent draw showed hemoglobin of 7.7 on 10/20/2017. He was transfused with 1 unit of packed red blood cells, on today's lab work his hemoglobin is 7.4, patient has not had any further bleeding. Patient has not required any vasopressor support, he is receiving D5 0.45 normal saline at a rate of 100 ML per hour. He was started on PPIs, Protonix 40 mg IV twice a day. CT of the abdomen and pelvis showed duodenitis. Past medical history includes GERD/reflux, history of achalasia status post esophageal dilation 2 at [facility] in 2011, past history of nicotine dependence for 20 years, quit in 1994. Patient remains nothing by mouth, he was seen in consultation by GI service this morning, and the plan is to proceed with EGD and colonoscopy tomorrow on 10/22/2017. On today's evaluation patient still complaining of exertional dyspnea, weakness, fatigue, still complaining of some palpitations. He remains sinus rhythm to sinus tach on the monitor with a heart rate up to 100 bpm, remains hemodynamically stable. Patient didn' t have mild leukocytosis on admission with WBC 15.2, and has remained afebrile, was also found to have positive troponin, which topped out at 0.044. He states he saw Dr. Gurrola from [facility] in the fall of 2016, had underwent stress test which was normal. On 10/22/2017 patient seen in follow-up in intensive care unit. He is resting in bed, denies any acute distress. Denies any chest pain or dyspnea. Had a EGD this morning which showed a duodenal ulcer which was not actively bleeding. Mild antral gastritis was also seen. Colonoscopy was essentially within normal limits with no evidence of colitis or colorectal neoplasia. Blood was seen throughout the entire colon. Patient returned back to his room in stable condition. He has had no further episodes of GI bleeding. He will be started on full liquid diet today. He is hemodynamically stable. His current hemoglobin is 7.1, he received 1 unit of PRBC on the day of his admission on 03/2018. Serum potassium is 3.1, this is being replaced per protocol, renal profile is within normal limits. His maintenance IV fluids is 0.9 normal saline at 50 ML per hour. He continues on IV Protonix 40 mg twice a day. Denies any abdominal discomfort. Abdomen is soft and nontender. His sinus rhythm to sinus tachycardia on the monitor, he is currently on room air with O2 sat at 99%. Lung sounds are clear to auscultation. He remains stable, from pulmonary/critical care standpoint patient is stable to go out of intensive care to regular medical surgical floor today. Objective - Vital Signs Vital signs: Vital Signs Temp 98.3 F 10/22/17 07:21 Pulse 100 10/22/17 07:00 Resp 16 10/22/17 07:21 BP 99/50 10/22/17 08:08 Pulse Ox 99 10/22/17 07:21 Intake & Output 10/21/17 10/22/17 10/22/17 18:59 06:59 18:59 Intake Total 2020 1900 300 Output Total 1950 500 Balance 70 1400 300 Weight 68 kg Intake: IV 1300 1200 300 Dextrose 5%-0.45% NaCl 1, 1100 1200 100 000 ml @ 100 mls/hr IV . Q10H [facility]ALA Rx#:[id number] Magnesium Sulfate-D5w Pmx 100 1 gm In Dextrose/Water 1 100ml.bag @ 100 mls/hr IVPB Q1H GHAZALA Rx#: [id number] Potassium Chloride 10 meq 100 In Water For Injection 1 100ml.bag @ 100 mls/hr IVPB Q1H GHA[facility]ALA Rx#: [id number] Oral 720 700 Output: Urine 1950 500 Other: # Voids 1 - Exam GENERAL EXAM: Alert, pleasant 62-year-old white male, resting in bed, slightly pale, but in no apparent distress. HEAD: Normocephalic/atraumatic. EYES: Normal reaction of pupils, equal size. Conjunctiva pink, sclera white. NOSE: Clear with pink turbinates. THROAT: No erythema or exudates. NECK: No masses, no JVD, no thyroid enlargement, no adenopathy. CHEST: No chest wall deformity. Symmetrical expansion. LUNGS: Diminished breath sounds bilaterally, with slight prolongation of expiratory phase, and faint wheeze on forced exhale maneuver. CVS: Regular rate and rhythm, normal S1 and S2, no gallops, no murmurs, no rubs ABDOMEN: Soft, nontender. No hepatosplenomegaly, normal bowel sounds, no guarding or rigidity. EXTREMITIES: No clubbing, no edema, no cyanosis, 2+ pulses and upper and lower extremities. MUSCULOSKELETAL: Muscle strength and tone normal. SPINE: No scoliosis or deformity SKIN: No rashes CENTRAL NERVOUS SYSTEM: Alert and oriented -3. No focal deficits, tone is normal in all 4 extremities. PSYCHIATRIC: Alert and oriented -3. Appropriate affect. Intact judgment and insight. - Labs CBC & Chem 7: 10/22/17 04:37 10/22/17 04:37 Labs: Abnormal Lab Results - Last 24 Hours (Table) 10/21/17 10/22/17 10/22/17 Range/Units 12:18 04:37 04:37 RBC 2.64 L 2.20 L (4.30-5.90) m/uL Hgb 8.5 L 7.1 L (13.0-17.5) gm/dL Hct 25.1 L 20.8 L (39.0-53.0) % Potassium 3.1 L (3.5-5.1) mmol/L Glucose 105 H (74-99) mg/dL Calcium 8.0 L (8.4-10.2) mg/dL Assessment and Plan Plan: Assessment: #1. Acute symptomatic blood loss anemia, CT of abdomen and pelvis showed duodenitis, patient had one week history of black tarry stools and several months history of NSAID use. Admission hemoglobin on 10/19/2017 was 12.3, and subsequently went down to 7.7 10/20/2017. Patient was transfused with 1 unit of PRBCs #2. Chronic neck pain, history of cervical fusion 35 years ago. He has been taking up to 6 Motrin and Excedrin daily #3. Elevation of troponins, probably secondary to supply and demand mismatch related to profound anemia or graft #4. History of esophageal achalasia, status post dilatation at the [facility] in 2011 #5. Syncope, weakness, exertional dyspnea secondary to profound anemia #6. History of nicotine dependence, currently in remission Plan: The results the EGD/colonoscopy were noted. Patient has had no further episodes of GI bleeding. Hemoglobin today 7.1, he remains hemodynamically stable. He is tolerating full liquid diet. /Critical care standpoint patient is stable to transfer out of ICU today to regular medical surgical floor. I performed a history & physical examination of the patient and discussed their management with my nurse practitioner, Pallavi Solorio. I reviewed the nurse practitioner's note and agree with the documented findings and plan of care. Lung sounds are diminished. The findings and the impression was discussed with the patient. I attest to the documentation by the nurse practitioner. Critical care time is over 30 minutes. Time with Patient: Greater than 30
--- NOTE | 2017-10-22 11:26 | P.PN ---
Subjective Progress Note Date: 10/22/17 Principal diagnosis: Abdominal pain Patient is a 62-year-old male with a past medical history of GERD, achalasia status post esophageal dilation 2, and chronic neck and back pain who presented to the emergency department with complaints of weakness and shortness of breath. On arrival to the emergency department he was found to be significantly tachycardic with a pulse of 114. His other vital signs are within normal limits. Laboratory analysis revealed significant anemia with hemoglobin of 7.7. He also appears slightly dehydrated with elevated Bielen and a decreased carbon dioxide. His lactic acid was normal but he did have a slightly elevated white blood cell count. Troponin was also noted to be positive at 0.044. Urinalysis was negative. He was started on IV push Protonix and admitted to the ICU. Due to his abdominal pain he underwent a CT of the abdomen and pelvis which showed duodenitis and suggested direct visualization. He was also noted he has been to the ER the day prior, not complained of any blood in his stool and had hemoglobin of 12.5. He then admitted to one dark tarry stool which he did not realize met blood. He was given 1 unit of packed red blood cells. The next morning his hemoglobin was 7.3. He had not had any episodes of bleeding or bowel movement. He was still feeling short of breath, lightheaded, and as though he would pass out. His troponin was trended and remained flat. His echo showed preserved EF wih 55% and no significant valvular dysfunction. underwent an EGD and colonoscopy on the morning of 10/22 which showed nonbleeding duodenal ulcer. Patient seen and examined at bedside. he is feeling much improved today. No longer short of breath or lightheaded. No longer feels presyncopal. Stomach pain is still present but is improving. No nausea or vomiting. No additional dark stools. Objective - Vital Signs Vital signs: Vital Signs Temp 98.7 F 10/22/17 08:00 Pulse 99 10/22/17 08:00 Resp 20 10/22/17 08:00 BP 99/50 10/22/17 08:08 Pulse Ox 94 L 10/22/17 08:00 Intake & Output 10/21/17 10/22/17 10/22/17 18:59 06:59 18:59 Intake Total 2020 1900 300 Output Total 1950 500 Balance 70 1400 300 Weight 68 kg Intake: IV 1300 1200 300 Dextrose 5%-0.45% NaCl 1, 1100 1200 100 000 ml @ 100 mls/hr IV . Q10H GHAZALA Rx#:[id number] Magnesium Sulfate-D5w Pmx 100 1 gm In Dextrose/Water 1 100ml.bag @ 100 mls/hr IVPB Q1H GHAZALA Rx#: [id number] Potassium Chloride 10 meq 100 In Water For Injection 1 100ml.bag @ 100 mls/hr IVPB Q1H GHAZALA Rx#: [id number] Oral 720 700 Output: Urine 1950 500 Other: # Voids 1 - Exam General: non toxic, no distress, appears older than stated age Derm: warm, dry Head: atraumatic, normocephalic, symmetric, temporal wasting Eyes: EOMI, no lid lag, anicteric sclera Mouth: no lip lesion, mucus membranes moist Cardiovascular: S1S2 reg, no murmur, positive posterior tibial pulse bilateral, Lungs: CTA bilateral, no rhonchi, no rales , no accessory muscle use Abdominal: soft, tender to palpation epigastric, no guarding, no appreciable organomegaly Ext: no gross muscle atrophy, no edema, no contractures Neuro: CN II-XI grossly intact, no focal neuro deficits Psych: Alert, oriented, appropriate affect - Labs CBC & Chem 7: 10/22/17 04:37 10/22/17 04:37 Labs: Abnormal Lab Results - Last 24 Hours (Table) 10/21/17 10/22/17 10/22/17 Range/Units 12:18 04:37 04:37 RBC 2.64 L 2.20 L (4.30-5.90) m/uL Hgb 8.5 L 7.1 L (13.0-17.5) gm/dL Hct 25.1 L 20.8 L (39.0-53.0) % Potassium 3.1 L (3.5-5.1) mmol/L Glucose 105 H (74-99) mg/dL Calcium 8.0 L (8.4-10.2) mg/dL Assessment and Plan Assessment: Symptomatic anemia with upper GI bleed -stable -repeat CBC in AM Duodenal ulcer with duodenitis -PPI -Avoid NSAIDs -GI recommendations appreciated -Full liquid diet - pain control Elevated troponin, likely secondary to type II non-STEMI -echocardiogram, this has been reviewed and shows a normal ejection fraction -Obtain outpatient records from recent stress test -If chest pain occurs then consider cardiology consult -No aspirin at this time secondary to probable GI bleed Leukocytosis, resolved -Likely reactive Chronic pain - avoid NSAID - Tylenol and norco Hypokalemia - replace and recheck in AM Hx of Achlasia - S/P dilation X 2 updated at bedside DVT prophylaxis: SCD Discussed with: Patient, nursing, Dr. Alejandra, Family Anticipated discharge: [address]: home A total of 35 minutes was spent on the care of this complex patient more than 50 % of the time was spent in counseling and care coordination.
[2017-10-22] MEDS ORDERED: HYDROcodone/APAP 5-325MG 1 EACH TAB PO PRN (15:40)
[2017-10-22] MEDS ORDERED: CALCIUM CARBONATE 500 MG CHEWABLE PO PRN (15:40)
[2017-10-22] MEDS ORDERED: ACETAMINOPHEN TAB 325 MG TAB PO PRN (15:40)
[2017-10-22] MEDS ORDERED: MELATONIN 5 MG TABLET PO PRN (15:40)
[2017-10-22] MEDS ORDERED: ONDANSETRON 4 MG/2 ML VIAL IVP PRN (15:40)
[2017-10-22 18:44] LABS: Basophils % (A) 0 %; Eosinophils # (A) 0.1 k/uL (0-0.7); Eosinophils % (A) 1 %; HCT 22.8 % (39.0-53.0); HGB 7.9 gm/dL (13.0-17.5); Lymphocytes # (A) 1.5 k/uL (1.0-4.8); Lymphocytes % (A) 23 %; MCH 32.4 pg (25.0-35.0); MCHC 34.6 g/dL (31.0-37.0); MCV 93.7 fL (80.0-100.0); Mean Platelet Volume 7.3; Monocytes # (A) 0.3 k/uL (0-1.0); Monocytes % (A) 4 %; Neutrophils # (A) 4.4 k/uL (1.3-7.7); Neutrophils % (A) 69 %; Platelet Count 251 k/uL (150-450); RBC 2.44 m/uL (4.30-5.90); RDW 14.4 % (11.5-15.5); WBC 6.4 k/uL (3.8-10.6)
[2017-10-22 23:57] VITALS: RESP 20
[2017-10-23] MEDS: MORPHINE ORAL SOLN 10 MG/5 ML CUP PO PRN ×2 (03:26→08:11)
[2017-10-23 06:28] VITALS: BP 114/65; PULSE 98; TEMP 98.9
[2017-10-23] MEDS: PANTOPRAZOLE 40 MG/10 ML VIAL IVP SCH (08:00)
[2017-10-23 08:11] LABS: Basophils % (A) 0 %; Eosinophils # (A) 0.2 k/uL (0-0.7); Eosinophils % (A) 3 %; HCT 21.1 % (39.0-53.0); HGB 7.1 gm/dL (13.0-17.5); Lymphocytes # (A) 2.1 k/uL (1.0-4.8); Lymphocytes % (A) 34 %; MCH 32.4 pg (25.0-35.0); MCHC 33.8 g/dL (31.0-37.0); MCV 95.7 fL (80.0-100.0); Mean Platelet Volume 7.8; Monocytes # (A) 0.3 k/uL (0-1.0); Monocytes % (A) 5 %; Neutrophils # (A) 3.5 k/uL (1.3-7.7); Neutrophils % (A) 56 %; Platelet Count 250 k/uL (150-450); RBC 2.21 m/uL (4.30-5.90); RDW 14.3 % (11.5-15.5); WBC 6.3 k/uL (3.8-10.6)
[2017-10-23 08:49] LABS: Anion Gap 7 mmol/L; Blood Urea Nitrogen 7 mg/dL (9-20); Calcium 8.4 mg/dL (8.4-10.2); Carbon Dioxide 27 mmol/L (22-30); Chloride 105 mmol/L (98-107); Glucose 99 mg/dL (74-99); Magnesium 1.9 mg/dL (1.6-2.3); Potassium 3.5 mmol/L (3.5-5.1); Sodium 139 mmol/L (137-145)
--- NOTE | 2017-10-23 11:20 | P.DS ---
Providers Date of admission: 10/20/17 15:03 Expected date of discharge: 10/23/17 Attending physician: Asa Jernigan MD Consults: 10/20/17 15:03 Consult Physician Urgent Consulting Provider: Santosh Gutierrez Consult Reason/Comments: GI bleed Do you want consulting provider notified?: Yes 10/20/17 15:47 Consult Physician Stat Consulting Provider: Jane Silvestre Consult Reason/Comments: icu care Do you want consulting provider notified?: Yes Primary care physician: Stated None - Discharge Diagnosis(es) (1) Duodenal ulcer Status: Acute (2) Acute GI bleeding Status: Acute (3) Acute blood loss anemia Status: Acute (4) Elevated troponin Status: Acute (5) Hypokalemia Status: Acute (6) Chronic pain Status: Acute Hospital Course: Patient is a 62-year-old male with a past medical history of GERD, achalasia status post esophageal dilation 2, and chronic neck and back pain who presented to the emergency department with complaints of weakness and shortness of breath. On arrival to the emergency department he was found to be significantly tachycardic with a pulse of 114. His other vital signs are within normal limits. Laboratory analysis revealed significant anemia with hemoglobin of 7.7. He also appears slightly dehydrated with elevated BUN and a decreased carbon dioxide. His lactic acid was normal but he did have a slightly elevated white blood cell count. Troponin was also noted to be positive at 0.044. Urinalysis was negative. He was started on IV push Protonix and admitted to the ICU. Due to his abdominal pain he underwent a CT of the abdomen and pelvis which showed duodenitis and suggested direct visualization. He was also noted he has been to the ER the day prior, not complained of any blood in his stool and had hemoglobin of 12.5. He then admitted to one dark tarry stool which he did not realize met blood. He was given 1 unit of packed red blood cells. The next morning his hemoglobin was 7.3. He had not had any episodes of bleeding or bowel movement. He was still feeling short of breath, lightheaded, and as though he would pass out. His troponin was trended and remained relatively flat. His echo showed preserved EF wih 55% and no significant valvular dysfunction. It was felt that his troponin was secondary to cardiac strain from significant anemia. He underwent an EGD and colonoscopy on the morning of 10/22 which showed nonbleeding duodenal ulcer. His diet was advanced. His hemoglobin remained stable. He was determined stable for discharge home. He was given specific instructions to avoid NSAID therapy. He will continue on Protonix and complete 2 weeks of Carafate therapy. He will need to follow with Dr. Mckeon in the office for possible repeat endoscopy. He was also given information for Dr. Hoover to establish him as a primary care physician. Due to his abdominal pain he was given a 4 day supply of Gonzales therapy. A a Maps was run and he has not had any narcotics filled since 07/14/2016. He was told to follow a bland diet. He was also given instructions to have a repeat CBC in 1 week. He will also be placed on oral iron therapy., Patient seen and examined at bedside. Vital signs reviewed and stable. General: no distress, appears at stated age Derm: warm, dry Head: atraumatic, normocephalic, symmetric Eyes: EOMI, no lid lag, anicteric sclera Mouth: no lip lesion, mucus membranes moist Cardiovascular: S1S2 reg, no murmur, positive posterior tibial pulse bilateral, Lungs: CTA bilateral, no rhonchi, no rales , no accessory muscle use Abdominal: soft, +tender to palpation epigstric, no guarding, no appreciable organomegaly Ext: no gross muscle atrophy, no edema, no contractures Neuro: CN II-XI grossly intact, no focal neuro deficits Psych: Alert, oriented, appropriate affect A total of 45 minutes of time were spent preparing this complex discharge summary . Pertinent Studies: CAT scan-duodenitis Echocardiogram-preserved ejection fraction, no significant cardiac disease Procedures: EGD-duodenal ulcer Patient Condition at Discharge: Good Plan - Discharge Summary Discharge Rx Participant: Yes New Discharge Prescriptions: New Ferrous Sulfate [Feosol] 325 mg PO BID #60 tab HYDROcodone/APAP 5-325MG [Gonzales 5-325] 1 tab PO Q6HR PRN #21 tab PRN Reason: pain Pantoprazole [Protonix] 40 mg PO DAILY #30 tablet. Sucralfate [Carafate] 1 gm PO BID #28 tab Continue Ondansetron Odt [Zofran ODT] 4 mg PO Q8HR PRN #10 tab PRN Reason: Nausea Discharge Medication List Ondansetron Odt [Zofran ODT] 4 mg PO Q8HR PRN #10 tab 10/20/17 [Rx] Ferrous Sulfate [Feosol] 325 mg PO BID #60 tab 10/23/17 [Rx] HYDROcodone/APAP 5-325MG [Gonzales 5-325] 1 tab PO Q6HR PRN #21 tab 10/23/17 [Rx] Pantoprazole [Protonix] 40 mg PO DAILY #30 tablet. 10/23/17 [Rx] Sucralfate [Carafate] 1 gm PO BID #28 tab 10/23/17 [Rx] Follow up Appointment(s)/Referral(s): Haris Hoover MD [STAFF PHYSICIAN] - 10/28/17 2:30 pm Monica Gurrola MD [STAFF PHYSICIAN] - 11/10/17 4:30 pm Ambulatory/Diagnostic Orders: Complete Blood Count w/diff [LAB.AMB] Location: Determined By Patient Patient Instructions/Handouts: Gastrointestinal Bleeding (DC) Activity/Diet/Wound Care/Special Instructions: Activity as tolerated Noble diet Avoid all NSAID products (motrin, aleve, naproxyn, ibuprofen, aspirin. If you have a question about whether a pain medications is an NSAID please ask the Pharmacist). Tylenol is Okay. CBC in [address] Hoover to make sure that your blood count is increasing. Discharge Disposition: HOME SELF-CARE
--- NOTE | 2017-10-23 11:32 | P.PN ---
Subjective Progress Note Date: 10/23/17 Principal diagnosis: Acute upper GI bleed 62-year-old male admitted with acute GI bleed status post EGD colonoscopy yesterday with findings of nonbleeding duodenal ulcer; colonoscopy no evidence of colitis or colorectal neoplasia. No further bowel movements. No bleeding. Feels well. Tolerating regular diet. Hemoglobin 7.1 receiving iron. White count 6.3. BUN 7. Creatinine 0.7. Denies abdominal pain. Objective - Vital Signs Vital signs: Vital Signs Temp 98.9 F 10/23/17 06:27 Pulse 98 10/23/17 06:27 Resp 20 10/23/17 06:27 BP 114/65 10/23/17 06:27 Pulse Ox 97 10/23/17 06:27 Intake & Output 10/22/17 10/23/17 10/23/17 18:59 06:59 18:59 Intake Total 600 610 Output Total 1200 Balance -600 610 Intake: IV 600 Dextrose 5%-0.45% NaCl 1, 100 000 ml @ 100 mls/hr IV . Q10H GHAZALA Rx#:[id number] Potassium Chloride 20 meq 300 In Water For Injection 1 100ml.bag @ 50 mls/hr IVPB Q2H GHAZALA Rx#: [id number] Oral 300 Blood Product 310 Rc As-1 Unit 310 [id number] Output: Urine 1200 Other: # Voids 1 1 - Exam General appearance: The patient is alert, oriented, in no acute distress. HET: Head is normocephalic and atraumatic. Pupils are equal and reactive. Oropharynx is clear without lesions. Neck: Supple without lymphadenopathy. Trachea midline. Heart: S1 S2. Regular rate and rhythm. Lungs: No crackles or wheezes are heard. Abdomen: Soft, nontender, nondistended with bowel sounds. No peritoneal signs. No palpable organomegaly or masses. Extremities: Normal skin color and turgor. No cyanosis, rash, ulceration, clubbing, or edema. Radial and pedal pulses are 2/4 bilaterally. Neurological: No focal deficits. Strength and sensation are grossly intact. - Labs CBC & Chem 7: 10/23/17 07:46 10/23/17 07:46 Labs: Abnormal Lab Results - Last 24 Hours (Table) 10/20/17 10/22/17 10/23/17 Range/Units 14:10 18:22 07:46 RBC 2.44 L 2.21 L (4.30-5.90) m/uL Hgb 7.9 L 7.1 L (13.0-17.5) gm/dL Hct 22.8 L 21.1 L (39.0-53.0) % BUN (9-20) mg/dL Crossmatch See Detail 10/23/17 Range/Units 07:46 RBC (4.30-5.90) m/uL Hgb (13.0-17.5) gm/dL Hct (39.0-53.0) % BUN 7 L (9-20) mg/dL Crossmatch Assessment and Plan (1) Acute GI bleeding Narrative/Plan: Duodenal ulcer status post EGD colonoscopy Current Visit: Yes Status: Acute Code(s): K92.2 - GASTROINTESTINAL HEMORRHAGE, UNSPECIFIED SNOMED Code(s): 08113330 (2) Acute blood loss anemia Current Visit: Yes Status: Acute Code(s): D62 - ACUTE POSTHEMORRHAGIC ANEMIA SNOMED Code(s): 437850388 (3) NSAID long-term use Current Visit: Yes Status: Acute Code(s): Z79.1 - RECREATIONAL COUNSELOR (CURRENT) USE OF NON-STEROIDAL NON-INFLAM (NSAID) SNOMED Code(s): 399004097 (4) Melena Current Visit: Yes Status: Acute Code(s): K92.1 - MELENA SNOMED Code(s): 4456154 (5) S/P dilatation of esophageal stricture Current Visit: Yes Status: Resolved Code(s): Z98.890 - OTHER SPECIFIED POSTPROCEDURAL STATES; Z87.19 - PERSONAL HISTORY OF OTHER DISEASES OF THE DIGESTIVE SYSTEM SNOMED Code(s): 102223495 Plan: 1. Protonix 40 mg daily. Carafate 1 g twice daily; prescriptions provided. Continue with a bland diet for the next 3-5 days and advance as tolerated. Avoid excessive caffeine or carbonation. Avoid NSAIDs aspirin and alcohol. Return to office in 10-14 days for reevaluation. Discharge per medicine. Assessment and plan a care discussed with Dr. Gutierrez
--- NOTE | 2017-10-23 11:52 | CDI ---
Last Revision, June 2017 Documentation Clarification Form Date: 10/23/17 From: Andreina Cope Admit Date: 10/20/2017 3:03:00 PM Patient Name: Carlos Hanson Visit Number: [id number] ATTENTION: The Clinical Documentation Specialists (CDI) and [facility] Coding Staff appreciate your assistance in clarifying documentation. Please respond to the clarification below the line at the bottom and electronically sign. The CDI & [facility] Coding staff will review the response and follow-up if needed. Please note: Queries are made part of the Legal Health Record. If you have any questions, please contact the author of this message via ITS. Dr. Telma Hasnon, Non STEMI is documented in the PN dated 10/21 and 411. Admitted for GI bleed History/Risk Factors: gerd, chronic neck and back pain no prior cardiac history Clinical Indicators: Troponin: 0.044, 0.119, 0.068 Treatment: Consult: Pulmonary, Medical, cardiology was not consulted Monitor Labs In order to capture the severity of condition and necessary documentation specificity, please clarify: Type of Infarction: NSTEMI ruled in NSTEMI ruled out Unable to determine Other Condition, please specify Please continue to document in your progress notes, under the line below and/or in the discharge summary in order to capture severity of illness and risk of mortality. Include clinical findings that support your diagnosis. TYPE II NSTEMI due to blood loss from Duodenal ulcer. Unable to have ASA, plavix due to GI bleed. No statin indicated as this is not reflective of CAD. MTDD
--- NOTE | 2017-10-23 13:34 | P.PN ---
Subjective Progress Note Date: 10/23/17 Principal diagnosis: Acute blood loss anemia, melena Mr. Connell is a 62-year-old white male patient, who presented to the emergency department on 10/19/2017 with weakness, and episode of black tarry stool a week ago. Patient's hemoglobin on 10/19/2017 was at 12.3, patient did not initially admit to having melena and he was discharged home on the same night. However the next day on 10/20/2017 patient became progressively weaker, had a syncopal episode at home, pounding in the chest, abdominal discomfort, nausea and vomiting. This time patient's hemoglobin was down to 7.7 and the patient was admitted to the intensive care. Patient has history of chronic back and neck pain and patient has been taken [id number] Motrin, up to 6 a day in addition to Excedrin for the past several months. His initial lab work showed a hemoglobin 12.3 on 10/19/2017, however the subsequent draw showed hemoglobin of 7.7 on 10/20/2017. He was transfused with 1 unit of packed red blood cells, on today's lab work his hemoglobin is 7.4, patient has not had any further bleeding. Patient has not required any vasopressor support, he is receiving D5 0.45 normal saline at a rate of 100 ML per hour. He was started on PPIs, Protonix 40 mg IV twice a day. CT of the abdomen and pelvis showed duodenitis. Past medical history includes GERD/reflux, history of achalasia status post esophageal dilation 2 at [facility] in 2011, past history of nicotine dependence for 20 years, quit in 1994. Patient remains nothing by mouth, he was seen in consultation by GI service this morning, and the plan is to proceed with EGD and colonoscopy tomorrow on 10/22/2017. On today's evaluation patient still complaining of exertional dyspnea, weakness, fatigue, still complaining of some palpitations. He remains sinus rhythm to sinus tach on the monitor with a heart rate up to 100 bpm, remains hemodynamically stable. Patient didn' t have mild leukocytosis on admission with WBC 15.2, and has remained afebrile, was also found to have positive troponin, which topped out at 0.044. He states he saw Dr. [facility]rol[facility] in the fall of 2016, had underwent stress test which was normal. On 10/22/2017 patient seen in follow-up in intensive care unit. He is resting in bed, denies any acute distress. Denies any chest pain or dyspnea. Had a EGD this morning which showed a duodenal ulcer which was not actively bleeding. Mild antral gastritis was also seen. Colonoscopy was essentially within normal limits with no evidence of colitis or colorectal neoplasia. Blood was seen throughout the entire colon. Patient returned back to his room in stable condition. He has had no further episodes of GI bleeding. He will be started on full liquid diet today. He is hemodynamically stable. His current hemoglobin is 7.1, he received 1 unit of PRBC on the day of his admission on 03/2018. Serum potassium is 3.1, this is being replaced per protocol, renal profile is within normal limits. His maintenance IV fluids is 0.9 normal saline at 50 ML per hour. He continues on IV Protonix 40 mg twice a day. Denies any abdominal discomfort. Abdomen is soft and nontender. His sinus rhythm to sinus tachycardia on the monitor, he is currently on room air with O2 sat at 99%. Lung sounds are clear to auscultation. He remains stable, from pulmonary/critical care standpoint patient is stable to go out of intensive care to regular medical surgical floor today. On 10/23/2017 patient seen in follow-up on medical surgical floor. Remains hemodynamically stable, has not had any recurrence of bleeding. No hematemesis , no melena. Today's hemoglobin is 7.1, patient received 1 unit of packed red blood cells this admission. Signs are stable, he is afebrile, denies any chest pain, dyspnea or abdominal discomfort. He has been up ambulating, tolerated activity well, denied any lightheadedness or dizziness. Said the pounding in his chest has resolved. He is tolerating oral intake. Anticipated to be discharged today. Objective - Vital Signs Vital signs: Vital Signs Temp 98.9 F 10/23/17 06:27 Pulse 98 10/23/17 06:27 Resp 20 10/23/17 06:27 BP 114/65 10/23/17 06:27 Pulse Ox 97 10/23/17 06:27 Intake & Output 10/22/17 10/23/17 10/23/17 18:59 06:59 18:59 Intake Total 600 610 Output Total 1200 Balance -600 610 Intake: IV 600 Dextrose 5%-0.45% NaCl 1, 100 000 ml @ 100 mls/hr IV . Q10H GHAZALA Rx#:[id number] Potassium Chloride 20 meq 300 In Water For Injection 1 100ml.bag @ 50 mls/hr IVPB Q2H GHAZALA Rx#: [id number] Oral 300 Blood Product 310 Rc As-1 Unit 310 [id number] Output: Urine 1200 Other: # Voids 1 1 - Exam GENERAL EXAM: Alert, pleasant 62-year-old white male, resting in bed, slightly pale, but in no apparent distress. HEAD: Normocephalic/atraumatic. EYES: Normal reaction of pupils, equal size. Conjunctiva pink, sclera white. NOSE: Clear with pink turbinates. THROAT: No erythema or exudates. NECK: No masses, no JVD, no thyroid enlargement, no adenopathy. CHEST: No chest wall deformity. Symmetrical expansion. LUNGS: Clear lung sounds, no rhonchi, no wheezes no rales CVS: Regular rate and rhythm, normal S1 and S2, no gallops, no murmurs, no rubs ABDOMEN: Soft, nontender. No hepatosplenomegaly, normal bowel sounds, no guarding or rigidity. EXTREMITIES: No clubbing, no edema, no cyanosis, 2+ pulses and upper and lower extremities. MUSCULOSKELETAL: Muscle strength and tone normal. SPINE: No scoliosis or deformity SKIN: No rashes CENTRAL NERVOUS SYSTEM: Alert and oriented -3. No focal deficits, tone is normal in all 4 extremities. PSYCHIATRIC: Alert and oriented -3. Appropriate affect. Intact judgment and insight. - Labs CBC & Chem 7: 10/23/17 07:46 10/23/17 07:46 Labs: Abnormal Lab Results - Last 24 Hours (Table) 10/20/17 10/22/17 10/23/17 Range/Units 14:10 18:22 07:46 RBC 2.44 L 2.21 L (4.30-5.90) m/uL Hgb 7.9 L 7.1 L (13.0-17.5) gm/dL Hct 22.8 L 21.1 L (39.0-53.0) % BUN (9-20) mg/dL Crossmatch See Detail 10/23/17 Range/Units 07:46 RBC (4.30-5.90) m/uL Hgb (13.0-17.5) gm/dL Hct (39.0-53.0) % BUN 7 L (9-20) mg/dL Crossmatch Assessment and Plan Plan: Assessment: #1. Acute symptomatic blood loss anemia, CT of abdomen and pelvis showed duodenitis, patient had one week history of black tarry stools and several months history of NSAID use. Admission hemoglobin on 10/19/2017 was 12.3, and subsequently went down to 7.7 10/20/2017. Patient was transfused with 1 unit of PRBCs. Today's hemoglobin is 7.1, patient has not had any active bleeding since admission. #2. Chronic neck pain, history of cervical fusion 35 years ago. He has been taking up to 6 Motrin and Excedrin daily #3. Elevation of troponins, probably secondary to supply and demand mismatch related to profound anemia or graft #4. History of esophageal achalasia, status post dilatation at the [facility] in 2011 #5. Syncope, weakness, exertional dyspnea secondary to profound anemia #6. History of nicotine dependence, currently in remission Plan: Patient remains stable, has not had any reoccurrence of GI bleeding. Today's hemoglobin is 7.1. Patient hemodynamically stable. Denies any chest pain, denies any palpitations, denies any dyspnea. Has been up ambulating, tolerating activity well. Anticipate discharge home today. I performed a history & physical examination of the patient and discussed their management with my nurse practitioner, Pallavi Solorio. I reviewed the nurse practitioner's note and agree with the documented findings and plan of care. Lung sounds are clear. The findings and the impression was discussed with the patient. I attest to the documentation by the nurse practitioner. Time with Patient: Less than 30
== END 2017-10-23 11:46 | disposition home or self-care (01) | DRG 377 ==
LOC: EC 13:57 → 6SEL 15:03 → 6ICU 15:54 → 4MS4W 10-22 16:22
PROVIDERS: ADMIT Internal Medicine; ATTEND Internal Medicine
PROC: 30233N1 Transfusion of Nonautologous Red Blood Cells into Peripheral Vein, Percutaneous Approach (ICD-10-PCS; principal; 2017-10-20)
PROC: 0DJD8ZZ Inspection of Lower Intestinal Tract, Via Natural or Artificial Opening Endoscopic (ICD-10-PCS; 2017-10-22)
PROC: 0DB68ZX Excision of Stomach, Via Natural or Artificial Opening Endoscopic, Diagnostic (ICD-10-PCS; 2017-10-22 11:40)
DX: K26.4 Chronic or unspecified duodenal ulcer with hemorrhage (principal); I21.A1 Myocardial infarction type 2; D62 Acute posthemorrhagic anemia; K29.81 Duodenitis with bleeding; E86.0 Dehydration; K21.9 Gastro-esophageal reflux disease without esophagitis; R53.1 Weakness; R00.0 Tachycardia, unspecified; G89.29 Other chronic pain; M54.9 Dorsalgia, unspecified; M54.2 Cervicalgia; E87.6 Hypokalemia; K29.60 Other gastritis without bleeding; R06.00 Dyspnea, unspecified; R74.8 Abnormal levels of other serum enzymes; R55 Syncope and collapse; K59.00 Constipation, unspecified; Z88.0 Allergy status to penicillin; Z79.899 Other long term (current) drug therapy; Z87.891 Personal history of nicotine dependence; Z79.1 Long term (current) use of non-steroidal anti-inflammatories (NSAID); Z80.51 Family history of malignant neoplasm of kidney; Z98.1 Arthrodesis status; Z80.52 Family history of malignant neoplasm of bladder; Z82.5 Family history of asthma and other chronic lower respiratory diseases; Z87.19 Personal history of other diseases of the digestive system
CPT/HCPCS: 36415; 43239; 45378; 74177; 80048; 80053; 81003; 82272; 82550; 82553; 83605; 83690; 83735; 84100; 84132; 84484; 85025; 85610; 85730; 86850; 86900; 86901; 86920; 88305; 90686; 93306; 96361; 96374; 96376; 99285

== ENCOUNTER → 2017-11-17 | Outpatient (CLI) | payer BC ==
[2017-11-17 08:42] LABS: Basophils # (A) 0.1 k/uL (0-0.2); Basophils % (A) 1 %; Eosinophils # (A) 0.1 k/uL (0-0.7); Eosinophils % (A) 2 %; HCT 38.2 % (39.0-53.0); Lymphocytes # (A) 1.9 k/uL (1.0-4.8); Lymphocytes % (A) 24 %; MCH 32.8 pg (25.0-35.0); MCHC 32.3 g/dL (31.0-37.0); Macrocytosis Slight; Mean Platelet Volume 7.5; Monocytes # (A) 0.4 k/uL (0-1.0); Monocytes % (A) 5 %; Neutrophils # (A) 5.4 k/uL (1.3-7.7); Neutrophils % (A) 66 %; Platelet Count 394 k/uL (150-450); RBC 3.76 m/uL (4.30-5.90); RDW 13.9 % (11.5-15.5); WBC 8.1 k/uL (3.8-10.6)
[2017-11-17 08:45] LABS: HGB 12.3 gm/dL (13.0-17.5)
[2017-11-17 08:46] LABS: MCV 101.6 fL (80.0-100.0)
== END | disposition home or self-care (01) ==
LOC: LABWHC1 07:56
PROVIDERS: ATTEND Internal Medicine Gastroenterology
DX: D50.9 Iron deficiency anemia, unspecified (principal)
CPT/HCPCS: 36415; 85025

== ENCOUNTER 2017-12-17 16:19 | Emergency (ER) | payer BC ==
[2017-12-17] MEDS ORDERED: SODIUM CHLORIDE 0.9% 1,000 ML IV STA (16:22)
--- NOTE | 2017-12-17 16:28 | ED ---
Neuro HPI - General Stated Complaint: CVA Time Seen by Provider: 12/17/17 16:19 Source: EMS, RN notes reviewed, old records reviewed Mode of arrival: EMS - History of Present Illness Is the patient presenting with stroke symptoms?: Yes Initial Comments: This is a 62-year-old male with history of heart disease and GI bleed who apparently was found on the floor at home after sliding off a beanbag chair he was incontinent of urine while in the floor no evidence of trauma. He was last seen this morning for his daughter went to work she came home 1:30 PM but did not seem until 3:30 he was found to be on the floor incontinent of urine with flaccid upper and lower right side extremities poor verbal response. He is brought here by EMS for evaluation. No prior history of stroke. - Related Data Home Medications: Home Medications Medication Instructions Recorded Confirmed Ferrous Sulfate [Feosol] 325 mg PO DAILY 12/17/17 12/17/17 Sucralfate [Carafate] 1 gm PO DAILY 12/17/17 12/17/17 Allergies/Adverse Reactions: Allergies Allergy/AdvReac Type Severity Reaction Status Date / Time Penicillins Allergy Unknown Verified 12/17/17 17:24 Review of Systems ROS Statement: Those systems with pertinent positive or pertinent negative responses have been documented in the HPI. ROS Other: All systems not noted in ROS Statement are negative. Limitations: ROS unobtainable due to patients medical condition General Exam - General Exam Comments Initial Comments: This a well-developed well-nourished awake but confused and lethargic male he does somewhat follow commands other times not General appearance: alert, in no apparent distress Head exam: Present: atraumatic, normocephalic, normal inspection Eye exam: Present: normal appearance, PERRL, EOMI. Absent: scleral icterus, conjunctival injection, periorbital swelling ENT exam: Present: normal exam, mucous membranes moist Neck exam: Present: normal inspection. Absent: tenderness, meningismus, lymphadenopathy Respiratory exam: Present: normal lung sounds bilaterally. Absent: respiratory distress, wheezes, rales, rhonchi, stridor Cardiovascular Exam: Present: regular rate, normal rhythm, normal heart sounds. Absent: systolic murmur, diastolic murmur, rubs, gallop, clicks GI/Abdominal exam: Present: soft, normal bowel sounds. Absent: distended, tenderness, guarding, rebound, rigid Rectal exam: Present: deferred Extremities exam: Present: normal inspection, normal capillary refill. Absent: full ROM, tenderness, pedal edema, joint swelling, calf tenderness Back exam: Present: normal inspection Neurological exam: Present: alert, altered, CN II-XII intact, motor sensory deficit (Right upper lower extremity are flaccid.) Psychiatric exam: Present: other (Unable to evaluate) Skin exam: Present: warm, dry, intact, normal color. Absent: rash Stroke MDM - Lab Data Result diagrams: 12/17/17 16:24 12/17/17 16:24 Lab Results 12/17/17 12/17/17 12/17/17 Range/Units 16:24 16:24 16:24 WBC 14.8 H (3.8-10.6) k/uL RBC 4.20 L (4.30-5.90) m/uL Hgb 13.9 (13.0-17.5) gm/dL Hct 41.5 (39.0-53.0) % MCV 98.7 (80.0-100.0) fL MCH 33.2 (25.0-35.0) pg MCHC 33.6 (31.0-37.0) g/dL RDW 13.5 (11.5-15.5) % Plt Count 364 (150-450) k/uL Neutrophils % 90 % Lymphocytes % 7 % Monocytes % 3 % Eosinophils % 0 % Basophils % 0 % Neutrophils # 13.3 H (1.3-7.7) k/uL Lymphocytes # 1.0 (1.0-4.8) k/uL Monocytes # 0.4 (0-1.0) k/uL Eosinophils # 0.1 (0-0.7) k/uL Basophils # 0.0 (0-0.2) k/uL PT (9.0-12.0) sec INR (<1.2) APTT (22.0-30.0) sec Sodium 143 (137-145) mmol/L Potassium 4.2 (3.5-5.1) mmol/L Chloride 105 (98-107) mmol/L Carbon Dioxide 23 (22-30) mmol/L Anion Gap 15 mmol/L BUN 20 (9-20) mg/dL Creatinine 0.74 (0.66-1.25) mg/dL Est GFR (CKD-EPI)AfAm >90 (>60 ml/min/1.73 sqM) Est GFR (CKD-EPI)NonAf >90 (>60 ml/min/1.73 sqM) Glucose 125 H (74-99) mg/dL Calcium 10.1 (8.4-10.2) mg/dL Total Bilirubin 0.4 (0.2-1.3) mg/dL AST 25 (17-59) U/L ALT 29 (21-72) U/L Alkaline Phosphatase 76 (38-126) U/L Total Creatine Kinase 201 H (55-170) U/L CK-MB (CK-2) 1.1 (0.0-2.4) ng/mL CK-MB (CK-2) Rel Index 0.5 Troponin I <0.012 (0.000-0.034) ng/mL Total Protein 7.4 (6.3-8.2) g/dL Albumin 4.8 (3.5-5.0) g/dL Urine Color Urine Appearance (Clear) Urine pH (5.0-8.0) Ur Specific [place] (1.001-1.035) Urine Protein (Negative) Urine Glucose (UA) (Negative) Urine Ketones (Negative) Urine Blood (Negative) Urine Nitrite (Negative) Urine Bilirubin (Negative) Urine Urobilinogen (<2.0) mg/dL Ur Leukocyte Esterase (Negative) Urine RBC (0-5) /hpf Urine WBC (0-5) /hpf Urine Mucus (None) /hpf 12/17/17 12/17/17 Range/Units 16:24 17:39 WBC (3.8-10.6) k/uL RBC (4.30-5.90) m/uL Hgb (13.0-17.5) gm/dL Hct (39.0-53.0) % MCV (80.0-100.0) fL MCH (25.0-35.0) pg MCHC (31.0-37.0) g/dL RDW (11.5-15.5) % Plt Count (150-450) k/uL Neutrophils % % Lymphocytes % % Monocytes % % Eosinophils % % Basophils % % Neutrophils # (1.3-7.7) k/uL Lymphocytes # (1.0-4.8) k/uL Monocytes # (0-1.0) k/uL Eosinophils # (0-0.7) k/uL Basophils # (0-0.2) k/uL PT 9.5 (9.0-12.0) sec INR 1.0 (<1.2) APTT 22.5 (22.0-30.0) sec Sodium (137-145) mmol/L Potassium (3.5-5.1) mmol/L Chloride (98-107) mmol/L Carbon Dioxide (22-30) mmol/L Anion Gap mmol/L BUN (9-20) mg/dL Creatinine (0.66-1.25) mg/dL Est GFR (CKD-EPI)AfAm (>60 ml/min/1.73 sqM) Est GFR (CKD-EPI)NonAf (>60 ml/min/1.73 sqM) Glucose (74-99) mg/dL Calcium (8.4-10.2) mg/dL Total Bilirubin (0.2-1.3) mg/dL AST (17-59) U/L ALT (21-72) U/L Alkaline Phosphatase (38-126) U/L Total Creatine Kinase (55-170) U/L CK-MB (CK-2) (0.0-2.4) ng/mL CK-MB (CK-2) Rel Index Troponin I (0.000-0.034) ng/mL Total Protein (6.3-8.2) g/dL Albumin (3.5-5.0) g/dL Urine Color Yellow Urine Appearance Clear (Clear) Urine pH 6.0 (5.0-8.0) Ur Specific [place] 1.024 (1.001-1.035) Urine Protein Trace H (Negative) Urine Glucose (UA) Negative (Negative) Urine Ketones Trace H (Negative) Urine Blood Moderate H (Negative) Urine Nitrite Negative (Negative) Urine Bilirubin Negative (Negative) Urine Urobilinogen <2.0 (<2.0) mg/dL Ur Leukocyte Esterase Negative (Negative) Urine RBC 23 H (0-5) /hpf Urine WBC 4 (0-5) /hpf Urine Mucus Moderate H (None) /hpf - NIH Stroke Scale 1a. Level of Consciousness: (0) alert 1b. LOC Questions: (2) answers no questions correctly 1c. LOC Commands: (1) performs 1 task correctly 2. Best Gaze: (0) normal 3. Visual: (0) no visual loss 4. Facial Palsy: (0) normal symmetrical movement 5a. Motor Arm Left: (0) no drift 5b. Motor Arm Right: (4) no movement 6a. Motor Leg Left: (0) no drift 6b. Motor Leg Right: (4) no movement 7. Limb Ataxia: (1) present 1 limb 8. Sensory: (0) normal 9. Best Language: (2) severe aphasia 10. Dysarthria: (un) intubated/barrier 11. Extinction/Inattention: (2) profound inattention NIH Score total: 18 - Medical Decision Making I did discuss findings with all the above-mentioned patient family members as well as the physicians. Patient be transferred to [facility]. The patient is a go to the catheterization lab upon arrival. The ER will be notified as a backup plan. - EKG Data -: EKG Interpreted by Me EKG shows normal: sinus rhythm (Sinus rhythm rate 93. Interval 164 QRS 74 QT since QTC of 360/[address]-T wave changes.) Past Medical History Past Medical History: GERD/Reflux Additional Past Medical History / Comment(s): History of achalasia status post esophageal dilation 2 in [facility]. Chronic neck and back pain History of Any Multi-Drug Resistant Organisms: None Reported Past Surgical History: Orthopedic Surgery Additional Past Surgical History / Comment(s): Right shoulder rotator cuff repair, neck fusion Past Anesthesia/Blood Transfusion Reactions: Previous Problems w/ Anesthesia Additional Past Anesthesia/Blood Transfusion Reaction / Comment(s): "they had difficult time getting him to go under" Smoking Status: Former smoker - Past Family History Father Family Medical History: Cancer (Kidney cancer) Additional Family Medical History / Comment(s): bladder cancer, triple cabg Mother Family Medical History: Chest Pain / Angina, COPD Additional Family Medical History / Comment(s): emphysema Course Vital Signs 12/17/17 12/17/17 12/17/17 16:30 16:45 17:15 Temperature 98.3 F Pulse Rate 104 H 92 91 Respiratory 18 18 18 Rate Blood Pressure 144/77 123/74 135/76 O2 Sat by Pulse 99 100 100 Oximetry - Reevaluation(s) Reevaluation #1: 12/17/17 18:04 Primary care from CAT scan no change in patient's status. Reevaluation #2: 12/17/17 18:04 I was called by the radiologist regarding the initial read of the CAT scan. Did show evidence of a large occlusion of the left middle cervical artery also occlusion of the left ICA. Reevaluation #3: 12/17/17 18:04 I did discuss the case with the patient's initially the patient is not a candidate for TPA as it is likely this started more than 40 half hours ago. He may be a candidate for intervention. The interventional neurologist was contacted. Critical Care Time Critical Care Time: Yes Critical Care Time: 39 minutes of critical care time which includes initial presentation monitoring the EMS run and discussed with paramedics history physical labs x-rays multiple reevaluation of the patient discussion with the patient's case with the radiologist as well as with the neuro interventional is. Discussion with the patient's on several occasions review of old charting documentation the above. Disposition Clinical Impression: Cerebrovascular accident Disposition: OTHER INSTITUTION NOT DEFINED Condition: Critical Referrals: None,Stated [Primary Care Provider] - 1-2 days - Out of Hospital Transfer - Req. Specs Out of Hospital Transfer - Requested Specifics: Neurological ICU
[2017-12-17 16:39] LABS: Basophils % (A) 0 %; Eosinophils # (A) 0.1 k/uL (0-0.7); Eosinophils % (A) 0 %; HCT 41.5 % (39.0-53.0); HGB 13.9 gm/dL (13.0-17.5); Lymphocytes % (A) 7 %; MCH 33.2 pg (25.0-35.0); MCHC 33.6 g/dL (31.0-37.0); MCV 98.7 fL (80.0-100.0); Mean Platelet Volume 7.3; Monocytes # (A) 0.4 k/uL (0-1.0); Monocytes % (A) 3 %; Neutrophils # (A) 13.3 k/uL (1.3-7.7); Neutrophils % (A) 90 %; Platelet Count 364 k/uL (150-450); RDW 13.5 % (11.5-15.5); WBC 14.8 k/uL (3.8-10.6)
[2017-12-17 16:48] LABS: ALT 29 U/L (21-72); AST 25 U/L (17-59); Albumin 4.8 g/dL (3.5-5.0); Alkaline Phosphatase 76 U/L (38-126); Anion Gap 15 mmol/L; Blood Urea Nitrogen 20 mg/dL (9-20); Calcium 10.1 mg/dL (8.4-10.2); Carbon Dioxide 23 mmol/L (22-30); Chloride 105 mmol/L (98-107); Glucose 125 mg/dL (74-99); Potassium 4.2 mmol/L (3.5-5.1); Sodium 143 mmol/L (137-145); Total Bilirubin 0.4 mg/dL (0.2-1.3); Total Protein 7.4 g/dL (6.3-8.2)
[2017-12-17 16:50] LABS: Partial Thromboplastin Time 22.5 sec (22.0-30.0); Prothrombin Time 9.5 sec (9.0-12.0)
[2017-12-17 17:05] LABS: Creatine Kinase 201 U/L (55-170)
[2017-12-17 17:18] LABS: Creatine Kinase MB 1.1 ng/mL (0.0-2.4); Troponin I <0.012 ng/mL (0.000-0.034)
--- NOTE | 2017-12-17 17:38 | CT ---
EXAMINATION: CT brain wo con for TPA DATE AND TIME: 12/17/2017 5:24 PM ORDERING PROVIDER: Wayne Nazario MD CLINICAL INDICATION: Neuro Deficits TECHNIQUE: Standard departmental protocol. COMPARISON: None. DESCRIPTION: There is a large zone of mild hypodensity throughout the vascular territory of the left MCA, CT findings which are consistent with nonhemorrhagic acute infarction. Remainder of the intra-axial examination is negative. Extra-axial examination is negative. Calvarium is negative. Orbits are intact. Paranasal sinuses and mastoid sinus air cells and middle ea r cavities are clear. IMPRESSION: CT FINDINGS WHICH ARE CONSISTENT WITH NONHEMORRHAGIC ACUTE INFARCTION.
[2017-12-17 17:54] LABS: Appearance,Urine Clear (Clear); Bilirubin,Urine Negative (Negative); Blood,Urine Moderate (Negative); Color,Urine Yellow; Glucose,Urine (UA) Negative (Negative); Ketones,Urine Trace (Negative); Leukocyte Esterase,Urine Negative (Negative); Mucus,Urine Moderate /hpf; Nitrite,Urine Negative (Negative); Protein,Urine Trace (Negative); RBC,Urine 23 /hpf (0-5); Specific Gravity,Urine 1.024 (1.001-1.035); Urobilinogen,Urine <2.0 mg/dL (<2.0); WBC,Urine 4 /hpf (0-5)
--- NOTE | 2017-12-17 18:02 | CT ---
EXAMINATION TYPE: CT angio head neck DATE OF EXAM: 12/17/2017 HISTORY: Weakness and headache COMPARISON: NONE CT DLP: 285.5 mGycm. Automated Exposure Control for Dose Reduction was Utilized. TECHNIQUE: CTA scan of the neck is performed with IV Contrast, patient injected with 65 mL of Isovue 370, axial images are obtained, coronal and sagittal reformatted images are reviewed. Three-D recons tructed images are created on an independent workstation and reviewed. FINDINGS: The left ICA is occluded at its carotid bifurcation origin and is occluded throughout its e xtent, with the left MCA occluded at its origin and throughout its M1 and M2 segments, with contrast- opacification of the M3 opercular branches. Remainder of the [place] appears widely patent. Anterior circulation and posterior circulation otherwise unremarkable. There is no hemorrhage. No mas s effect. The precontrast head CT showed a large zone of nonhemorrhagic left MCA territory infarction. Remainde r of the intra-axial examination is unremarkable. The contrast enhancement pattern is otherwise unrem arkable. The extra-axial examination is unremarkable. The left CCA and left ECA are widely patent. The right CCA and right ICA are widely patent. The bilateral vertebral arteries are widely patent as is the basilar artery. IMPRESSION: OCCLUDED LEFT ICA THROUGHOUT ITS EXTENT AND OCCLUDED M1 AND M2 SEGMENTS OF THE LEFT MIDDLE CEREBRAL A RTERY. Results discussed with the ordering physician immediately following the dictation of the CT head with out contrast report, in order to help expedite management decision making.
--- NOTE | 2017-12-17 18:16 | XR ---
EXAMINATION: XR chest 2V DATE AND TIME: 12/17/2017 5:33 PM ORDERING PROVIDER: Wayne Nazario MD CLINICAL INDICATION: altered mental status TECHNIQUE: PA and lateral COMPARISON: None. DESCRIPTION: The lungs are clear. The pleural spaces are negative. The cardiac silhouette is not enlarged. The mediastinal and pleural silhouettes are unremarkable. The skeletal structures are intact without focal findings. The soft tissues are unremarkable. IMPRESSION: NO ACUTE PROCESS.
[2017-12-17] MEDS ORDERED: ASPIRIN 300 MG SUPP RECTAL STA (18:23)
[2017-12-17 18:44] VITALS: BP 145/65; PULSE 99; RESP 18; TEMP 97.8
== END 2017-12-17 19:04 | disposition other institution (70) ==
LOC: EC 16:19
DX: I63.9 Cerebral infarction, unspecified (principal); I65.02 Occlusion and stenosis of left vertebral artery; K21.9 Gastro-esophageal reflux disease without esophagitis; Z87.891 Personal history of nicotine dependence; Z79.899 Other long term (current) drug therapy; Z88.0 Allergy status to penicillin
CPT/HCPCS: 99291 ×2; 96360 ×2; 96361 ×2; 36415; 93005; 80053; 82550; 82553; 84484; 85025; 85610; 85730; 81001; 71046; 70496; 70450; 70498; Q9967

== ENCOUNTER 2018-01-19 14:12 | Inpatient (IN) | payer BC ==
[2018-01-19] MEDS ORDERED: ACETAMINOPHEN TAB 500 MG TAB PO STA (14:36)
[2018-01-19] MEDS ORDERED: cefTRIAXone IN SWFI 2,000 MG/20 ML SYRINGE IVP STA (14:36)
[2018-01-19] MEDS ORDERED: VANCOMYCIN IV PER PHARMACY 1 EACH MISC MISCELLANE PRN (14:36)
[2018-01-19] MEDS: SODIUM CHLORIDE 0.9% 500 ML IV SCH ×2 (14:52→14:53)
[2018-01-19 15:00] LABS: Basophils % (A) 0 %; Eosinophils # (A) 0.1 k/uL (0-0.7); Eosinophils % (A) 0 %; HCT 38.1 % (39.0-53.0); HGB 12.5 gm/dL (13.0-17.5); Lymphocytes # (A) 0.4 k/uL (1.0-4.8); Lymphocytes % (A) 3 %; MCH 31.8 pg (25.0-35.0); MCHC 32.8 g/dL (31.0-37.0); MCV 96.9 fL (80.0-100.0); Mean Platelet Volume 7.7; Monocytes # (A) 0.5 k/uL (0-1.0); Monocytes % (A) 3 %; Neutrophils # (A) 14.8 k/uL (1.3-7.7); Neutrophils % (A) 94 %; Platelet Count 321 k/uL (150-450); RBC 3.93 m/uL (4.30-5.90); WBC 15.8 k/uL (3.8-10.6)
[2018-01-19] MEDS ORDERED: VANCOMYCIN 1,500 MG in SODIUM CHLORIDE 0.9% 250 ML IVPB ONE (15:00)
[2018-01-19 15:09] LABS: Partial Thromboplastin Time 23.5 sec (22.0-30.0); Prothrombin Time 10.2 sec (9.0-12.0)
[2018-01-19 15:27] LABS: ALT 31 U/L (21-72); AST 22 U/L (17-59); Albumin 3.8 g/dL (3.5-5.0); Alkaline Phosphatase 109 U/L (38-126); Anion Gap 16 mmol/L; Blood Urea Nitrogen 13 mg/dL (9-20); Calcium 8.8 mg/dL (8.4-10.2); Carbon Dioxide 20 mmol/L (22-30); Chloride 101 mmol/L (98-107); Glucose 156 mg/dL (74-99); Potassium 3.9 mmol/L (3.5-5.1); Sodium 137 mmol/L (137-145); Total Bilirubin 0.6 mg/dL (0.2-1.3); Total Protein 6.5 g/dL (6.3-8.2)
[2018-01-19 15:48] LABS: Appearance,Urine Cloudy (Clear); Bacteria,Urine Moderate /hpf; Bilirubin,Urine Negative (Negative); Blood,Urine Small (Negative); Color,Urine Yellow; Glucose,Urine (UA) Negative (Negative); Ketones,Urine Negative (Negative); Leukocyte Esterase,Urine Large (Negative); Mucus,Urine Rare /hpf; Nitrite,Urine Positive (Negative); Protein,Urine 2+ (Negative); RBC,Urine 24 /hpf (0-5); Specific Gravity,Urine 1.011 (1.001-1.035); Urobilinogen,Urine <2.0 mg/dL (<2.0); WBC,Urine >182 /hpf (0-5)
--- NOTE | 2018-01-19 15:58 | XR ---
EXAMINATION TYPE: XR chest 2V DATE OF EXAM: 01/19/2018 COMPARISON: 12/17/2017 HISTORY: Cough, fever, and lethargy TECHNIQUE: Frontal and lateral views of the chest are obtained. FINDINGS: There is no focal air space opacity, pleural effusion, or pneumothorax seen. The cardiac silhouette size is within normal limits. The osseous structures are intact. Mild multilevel degener ative changes of the thoracic spine are noted. IMPRESSION: No acute cardiopulmonary process.
--- NOTE | 2018-01-19 17:20 | ED ---
Fever HPI - General Chief Complaint: Fever Stated Complaint: Lethargy Time Seen by Provider: 01/19/18 14:32 Source: EMS Mode of arrival: EMS Limitations: no limitations - History of Present Illness Initial Comments: 62 years old gentleman comes in with a fever chills and lethargy by his heart is racing had a fever of 1 or 2 by EMS in ER and was 99.9 and he has a recent history of CVA, he had a right-sided hemiparesis he had a CVA in the middle cerebral artery on the left side and interventional neurologist Andrew did the thrombectomy and he is in a rehab right now. Eyes any headache no neck stiffness no chest pain no shortness of breath no abdominal pain he does have a feeding tube in place and right side is still weak but he is making a lot of progress him in review of system is otherwise unremarkable - Related Data Home Medications Medication Instructions Recorded Confirmed Ferrous Sulfate [Feosol] 325 mg PO DAILY@79912/17/17 01/19/18 Sucralfate [Carafate] 1 gm PO HS@199912/17/17 01/19/18 Amantadine HCl [Symmetrel] 200 mg PO AC-BID@,01/19/18 01/19/18 Aspirin 81 mg PO DAILY@79901/19/18 01/19/18 Atorvastatin [Lipitor] 80 mg PO HS@199901/19/18 01/19/18 Metoclopramide [Reglan] 20 mg PO AC-BRKFST@62901/19/18 01/19/18 Pantoprazole Sodium [Protonix] 40 mg PO AC-BRKFST@59901/19/18 01/19/18 Sertraline [Zoloft] 50 mg PO DAILY@79901/19/18 01/19/18 Ticagrelor [Brilinta] 90 mg PO BID@08,01/19/18 01/19/18 Allergies Allergy/AdvReac Type Severity Reaction Status Date / Time Penicillins Allergy Anaphylaxis Verified 01/19/18 14:53 Review of Systems ROS Statement: Those systems with pertinent positive or pertinent negative responses have been documented in the HPI. ROS Other: All systems not noted in ROS Statement are negative. Past Medical History Past Medical History: CVA/TIA, GERD/Reflux Additional Past Medical History / Comment(s): History of achalasia status post esophageal dilation 2 in [facility]. Chronic neck and back pain History of Any Multi-Drug Resistant Organisms: None Reported Past Surgical History: Orthopedic Surgery Additional Past Surgical History / Comment(s): Right shoulder rotator cuff repair, neck fusion Past Anesthesia/Blood Transfusion Reactions: Previous Problems w/ Anesthesia Additional Past Anesthesia/Blood Transfusion Reaction / Comment(s): "they had difficult time getting him to go under" Past Psychological History: No Psychological Hx Reported Smoking Status: Former smoker Past Alcohol Use History: None Reported Past Drug Use History: None Reported - Past Family History Father Family Medical History: Cancer (Kidney cancer) Additional Family Medical History / Comment(s): bladder cancer, triple cabg Mother Family Medical History: Chest Pain / Angina, COPD Additional Family Medical History / Comment(s): emphysema General Exam - General Exam Comments Initial Comments: General: The patient is awake she has is 15, he looks pale and tired he is tachycardic heart rate is 1:30 GCS is 15 Skin: Skin is warm and dry and no rashes or lesions are noted. Eye: Pupils are equal, round and reactive to light, extra-ocular movements are intact; there is normal conjunctiva bilaterally. Ears, nose, mouth and throat: There are moist mucous membranes and no oral lesions. Neck: The neck is supple, there is no tenderness him a no signs of meningitis Cardiovascular: There is a regular rate and rhythm. No murmur, rub or gallop is appreciated. It is tachycardia Respiratory: To auscultation bilateral, no wheezing no rhonchi no distress respiratory loco noticed Gastrointestinal: Soft, non-distended, noticed a feeding tube in place no obvious infection at the point of entry Back: There is no tenderness to palpation in the midline. There is no obvious deformity. Musculoskeletal: Normal ROM, no tenderness, There is no pedal edema. There is no calf tenderness or swelling. No cords were appreciated. Neurological: CN II-XII intact, Cranial nerves III through XII are intact. There are no obvious motor or sensory deficits. Coordination appears grossly intact. Speech is normal. Psychiatric: Cooperative, appropriate mood & affect, normal judgment. Limitations: no limitations Course Vital Signs 01/19/18 01/19/18 01/19/18 14:28 14:35 14:50 Temperature 99.9 F H Pulse Rate 129 H 126 H 126 H Respiratory 20 Rate Blood Pressure 150/78 128/78 132/80 O2 Sat by Pulse 95 95 97 Oximetry 01/19/18 01/19/18 01/19/18 15:05 15:27 15:35 Temperature 99.6 F Pulse Rate 118 H 111 H Respiratory Rate Blood Pressure 111/69 124/66 O2 Sat by Pulse 97 98 Oximetry 01/19/18 01/19/18 01/19/18 15:57 16:12 17:00 Temperature Pulse Rate 100 104 H 66 Respiratory 18 Rate Blood Pressure 124/64 122/72 118/51 O2 Sat by Pulse 98 97 97 Oximetry Medical Decision Making - Lab Data Result diagrams: 01/19/18 14:44 01/19/18 14:44 Lab Results 01/19/18 01/19/18 01/19/18 Range/Units 14:44 14:44 14:44 WBC 15.8 H (3.8-10.6) k/uL RBC 3.93 L (4.30-5.90) m/uL Hgb 12.5 L (13.0-17.5) gm/dL Hct 38.1 L (39.0-53.0) % MCV 96.9 (80.0-100.0) fL MCH 31.8 (25.0-35.0) pg MCHC 32.8 (31.0-37.0) g/dL RDW 15.0 (11.5-15.5) % Plt Count 321 (150-450) k/uL Neutrophils % 94 % Lymphocytes % 3 % Monocytes % 3 % Eosinophils % 0 % Basophils % 0 % Neutrophils # 14.8 H (1.3-7.7) k/uL Lymphocytes # 0.4 L (1.0-4.8) k/uL Monocytes # 0.5 (0-1.0) k/uL Eosinophils # 0.1 (0-0.7) k/uL Basophils # 0.0 (0-0.2) k/uL PT (9.0-12.0) sec INR (<1.2) APTT (22.0-30.0) sec Sodium 137 (137-145) mmol/L Potassium 3.9 (3.5-5.1) mmol/L Chloride 101 (98-107) mmol/L Carbon Dioxide 20 L (22-30) mmol/L Anion Gap 16 mmol/L BUN 13 (9-20) mg/dL Creatinine 0.60 L (0.66-1.25) mg/dL Est GFR (CKD-EPI)AfAm >90 (>60 ml/min/1.73 sqM) Est GFR (CKD-EPI)NonAf >90 (>60 ml/min/1.73 sqM) Glucose 156 H (74-99) mg/dL Plasma Lactic Acid [place] 2.5 H* (0.7-2.0) mmol/L Calcium 8.8 (8.4-10.2) mg/dL Total Bilirubin 0.6 (0.2-1.3) mg/dL AST 22 (17-59) U/L ALT 31 (21-72) U/L Alkaline Phosphatase 109 (38-126) U/L Troponin I (0.000-0.034) ng/mL Total Protein 6.5 (6.3-8.2) g/dL Albumin 3.8 (3.5-5.0) g/dL Urine Color Urine Appearance (Clear) Urine pH (5.0-8.0) Ur Specific [place] (1.001-1.035) Urine Protein (Negative) Urine Glucose (UA) (Negative) Urine Ketones (Negative) Urine Blood (Negative) Urine Nitrite (Negative) Urine Bilirubin (Negative) Urine Urobilinogen (<2.0) mg/dL Ur Leukocyte Esterase (Negative) Urine RBC (0-5) /hpf Urine WBC (0-5) /hpf Urine Bacteria (None) /hpf Urine Mucus (None) /hpf 01/19/18 01/19/18 01/19/18 Range/Units 14:44 14:44 15:36 WBC (3.8-10.6) k/uL RBC (4.30-5.90) m/uL Hgb (13.0-17.5) gm/dL Hct (39.0-53.0) % MCV (80.0-100.0) fL MCH (25.0-35.0) pg MCHC (31.0-37.0) g/dL RDW (11.5-15.5) % Plt Count (150-450) k/uL Neutrophils % % Lymphocytes % % Monocytes % % Eosinophils % % Basophils % % Neutrophils # (1.3-7.7) k/uL Lymphocytes # (1.0-4.8) k/uL Monocytes # (0-1.0) k/uL Eosinophils # (0-0.7) k/uL Basophils # (0-0.2) k/uL PT 10.2 (9.0-12.0) sec INR 1.0 (<1.2) APTT 23.5 (22.0-30.0) sec Sodium (137-145) mmol/L Potassium (3.5-5.1) mmol/L Chloride (98-107) mmol/L Carbon Dioxide (22-30) mmol/L Anion Gap mmol/L BUN (9-20) mg/dL Creatinine (0.66-1.25) mg/dL Est GFR (CKD-EPI)AfAm (>60 ml/min/1.73 sqM) Est GFR (CKD-EPI)NonAf (>60 ml/min/1.73 sqM) Glucose (74-99) mg/dL Plasma Lactic Acid [place] (0.7-2.0) mmol/L Calcium (8.4-10.2) mg/dL Total Bilirubin (0.2-1.3) mg/dL AST (17-59) U/L ALT (21-72) U/L Alkaline Phosphatase (38-126) U/L Troponin I <0.012 (0.000-0.034) ng/mL Total Protein (6.3-8.2) g/dL Albumin (3.5-5.0) g/dL Urine Color Yellow Urine Appearance Cloudy (Clear) Urine pH 6.0 (5.0-8.0) Ur Specific [place] 1.011 (1.001-1.035) Urine Protein 2+ H (Negative) Urine Glucose (UA) Negative (Negative) Urine Ketones Negative (Negative) Urine Blood Small H (Negative) Urine Nitrite Positive (Negative) Urine Bilirubin Negative (Negative) Urine Urobilinogen <2.0 (<2.0) mg/dL Ur Leukocyte Esterase Large H (Negative) Urine RBC 24 H (0-5) /hpf Urine WBC >182 H (0-5) /hpf Urine Bacteria Moderate H (None) /hpf Urine Mucus Rare H (None) /hpf Critical Care Time Total Critical Care Time: 30 Critical Care Time: Arrival he he has a fever he looked pale and tired heart he was able to speak his heart rate was 1:30, we followed the sepsis protocol he was started on a broad-spectrum antibiotics urine blood was cultured urine is quite significantly positive probably source of infection couple liters of fluids for L and lactate is 2.5 EKG rules out any any STEMI he be admitted to [facility] Disposition Clinical Impression: Sepsis, Cystitis Disposition: ADMITTED IP TO THIS HOSP Condition: Good Referrals: Roslyn Drummond MD [Primary Care Provider] - 1-2 days
[2018-01-19] MEDS ORDERED: ACETAMINOPHEN TAB 325 MG TAB PO PRN (17:22)
[2018-01-19] MEDS ORDERED: NALOXONE 0.4 MG/ML 1 ML VIAL IV PRN (17:22)
[2018-01-19] MEDS ORDERED: ONDANSETRON 4 MG/2 ML VIAL IVP PRN (17:22)
--- NOTE | 2018-01-19 19:53 | P.HPIM ---
History of Present Illness H&P Date: 01/19/18 Chief Complaint: weakness Patient is a 62-year-old male with a history of recent stroke requiring left-sided intervention by interventional neurology at [facility] currently at rehab, GERD, acid reflux, recent GI bleed secondary to duodenal ulcer who presented to the emergency department with lethargy and fever. On arrival to the ER he was tachycardic with a heart rate of 129 his temperature was 99.2. Laboratory analysis showed an elevated white blood cell count at 15.8 and an elevated lactic acid at 2.5. Urinalysis was consistent with urinary tract infection. He was given a dose of Vanco, Rocephin, and was started on IV fluids. Arrangements were made for admission. Patient seen and examined at bedside in the ER. Patient is a poor historian secondary to recent stroke with dysarthria. No family is present at bedside and history taking. All information is gathered from thorough record review including patient's recent hospitalization here from October 30 through 2017 as well as his ER visit on 12/17/2017. Patient was able to communicate with me that he had been at rehab and was discharged home with his . He started feeling weak, fatigued, and had increased confusion. He reports dysuria with increased urinary frequency. He was having fevers at home. He had nausea but no vomiting. He denies any diarrhea or constipation. He has no chest pain or shortness of breath. He states he has a chronic dry cough and stuffy nose which is unchanged. He reports decreased appetite. He does have chronic right upper extremity weakness and tingling of his right upper extremity. He has no other complaints currently. Review of Systems Pertinent positives and negatives as discussed in HPI, a complete review of systems was performed and all other systems are negative. Past Medical History Past Medical History: CVA/TIA, GERD/Reflux Additional Past Medical History / Comment(s): History of achalasia status post esophageal dilation 2 in [facility]. Chronic neck and back pain, CVA with residual left-sided weakness, GI bleed secondary to duodenal ulcer History of Any Multi-Drug Resistant Organisms: None Reported Past Surgical History: Orthopedic Surgery Additional Past Surgical History / Comment(s): Right shoulder rotator cuff repair, neck fusion, EGD, intervention for stroke Past Anesthesia/Blood Transfusion Reactions: Previous Problems w/ Anesthesia Additional Past Anesthesia/Blood Transfusion Reaction / Comment(s): "they had difficult time getting him to go under" Past Psychological History: No Psychological Hx Reported Smoking Status: Former smoker Past Alcohol Use History: None Reported Past Drug Use History: None Reported Additional History: Lives at home with currently uses a wheelchair. - Past Family History Father Family Medical History: Cancer (Kidney cancer) Additional Family Medical History / Comment(s): bladder cancer, triple cabg Mother Family Medical History: Chest Pain / Angina, COPD Additional Family Medical History / Comment(s): emphysema Medications and Allergies Home Medications Medication Instructions Recorded Confirmed Type Ferrous Sulfate [Feosol] 325 mg PO DAILY@79912/17/17 01/19/18 History Sucralfate [Carafate] 1 gm PO HS@199912/17/17 01/19/18 History Amantadine HCl [Symmetrel] 200 mg PO AC-BID@,12 01/19/18 01/19/18 History Aspirin 81 mg PO DAILY@79901/19/18 01/19/18 History Atorvastatin [Lipitor] 80 mg PO HS@199901/19/18 01/19/18 History Metoclopramide [Reglan] 20 mg PO AC-BRKFST@62901/19/18 01/19/18 History Pantoprazole Sodium [Protonix] 40 mg PO AC-BRKFST@59901/19/18 01/19/18 History Sertraline [Zoloft] 50 mg PO DAILY@79901/19/18 01/19/18 History Ticagrelor [Brilinta] 90 mg PO BID@01/19/18 01/19/18 History Allergies Allergy/AdvReac Type Severity Reaction Status Date / Time Penicillins Allergy Anaphylaxis Verified 01/19/18 14:53 Physical Exam Osteopathic Statement: *. No significant issues noted on an osteopathic structural exam other than those noted in the History and Physical/Consult. Vitals: Vital Signs Temp Pulse Resp BP Pulse Ox 01/19/18 19:17 99.1 F 99 20 105/61 99 01/19/18 18:27 95 104/60 98 01/19/18 17:27 102 H 114/65 97 01/19/18 17:12 100 114/63 97 01/19/18 17:00 66 18 118/51 97 01/19/18 16:12 104 H 122/72 97 01/19/18 15:57 100 124/64 98 01/19/18 15:35 99.6 F 01/19/18 15:27 111 H 124/66 98 01/19/18 15:05 118 H 111/69 97 01/19/18 14:50 126 H 132/80 97 01/19/18 14:35 126 H 128/78 95 01/19/18 14:28 99.9 F H 129 H 20 150/78 95 Intake and Output 01/19/18 01/19/18 01/19/18 06:59 14:59 22:59 Other: Weight 77.111 kg General: non toxic, no distress, appears older than stated age, normal weight Derm: no unusual rashes/lesions no unusual ecchymoses, warm, dry Head: atraumatic, normocephalic, symmetric Eyes: EOMI, no lid lag, anicteric sclera, pupils equal round reactive to light ENT: Nose and ears atraumatic, no thrush, no pharyngeal erythema Neck: No thyromegaly, no cervical lymphadenopathy, trachea midline, supple Mouth: no lip lesion, mucus membranes dry Cardiovascular: S1S2 reg, no murmur, positive posterior tibial pulse bilateral, no edema, capillary refill less than 2 seconds Lungs: Decreased breath sounds bilateral bases, no rhonchi, no rales , no accessory muscle use Abdominal: soft, nontender to palpation, no guarding, no appreciable organomegaly, normal bowel sounds Ext: no gross muscle atrophy, muscle strength 5 out of 5 in left upper extremity and left lower extremity, muscle strength 0 out of 5 in right upper extremity, muscle strain 3 out of 5 in right lower extremity, no contractures, Neuro: CN II-XI grossly intact, decreased light touch in right upper extremity and right lower extremity, light touch intact in left upper extremity and left lower extremity, finger to nose within normal limits on left unable to perform on the right, Psych: Alert, unable to tell me year or month but was able to tell me that the recent holiday had fireworks, flat affect Results CBC & Chem 7: 01/19/18 14:44 01/19/18 14:44 Labs: Abnormal Lab Results - Last 24 Hours (Table) 01/19/18 01/19/1801/19/18 Range/Units 14:44 14:44 14:44 WBC 15.8 H (3.8-10.6) k/uL RBC 3.93 L (4.30-5.90) m/uL Hgb 12.5 L (13.0-17.5) gm/dL Hct 38.1 L (39.0-53.0) % Neutrophils # 14.8 H (1.3-7.7) k/uL Lymphocytes # 0.4 L (1.0-4.8) k/uL Carbon Dioxide 20 L (22-30) mmol/L Creatinine 0.60 L (0.66-1.25) mg/dL Glucose 156 H (74-99) mg/dL Plasma Lactic Acid Zacarias 2.5 H* (0.7-2.0) mmol/L Urine Protein (Negative) Urine Blood (Negative) Ur Leukocyte Esterase (Negative) Urine RBC (0-5) /hpf Urine WBC (0-5) /hpf Urine Bacteria (None) /hpf Urine Mucus (None) /hpf 01/19/18 Range/Units 15:36 WBC (3.8-10.6) k/uL RBC (4.30-5.90) m/uL Hgb (13.0-17.5) gm/dL Hct (39.0-53.0) % Neutrophils # (1.3-7.7) k/uL Lymphocytes # (1.0-4.8) k/uL Carbon Dioxide (22-30) mmol/L Creatinine (0.66-1.25) mg/dL Glucose (74-99) mg/dL Plasma Lactic Acid Zacarias (0.7-2.0) mmol/L Urine Protein 2+ H (Negative) Urine Blood Small H (Negative) Ur Leukocyte Esterase Large H (Negative) Urine RBC 24 H (0-5) /hpf Urine WBC >182 H (0-5) /hpf Urine Bacteria Moderate H (None) /hpf Urine Mucus Rare H (None) /hpf Comments: EKG is reviewed by myself reveals sinus tachycardia at a rate of 130, no significant ST-T wave changes. Chest x-ray: report reviewed Thrombosis Risk Factor Assmnt - DVT/VTE Prophylaxis DVT/VTE Prophylaxis: Pharmacologic Prophylaxis ordered Assessment and Plan Assessment: UTI with sepsis as evidenced by elevated white blood cell count tachycardia -Rocephin -Urine culture -Blood culture -IV fluids -Check post void residual with recent stroke Lactic acidosis -Resolved after IV fluids CVA with residual right-sided deficits -Consult PT/OT -kaiden plata -Supportive care Anemia -Increasing since discharge in October -Continue with outpatient Feest all -Follow CBC GERD with recent GI bleed -on PPI The patient is admitted with an anticipated greater than 2 midnight stay for evaluation of UTI with sepsis. Surrogate decision-maker: CODE STATUS:full by default DVT prophylaxis: SCD Discussed with: patient, ED physician Anticipated discharge date: 10/[address]: home with home health A total of 65 minutes was spent on the care of this complex patient more than 50 % of the time was spent in counseling and care coordination.
[2018-01-19] MEDS: SODIUM CHLORIDE 0.9% 1,000 ML IV SCH (20:05)
[2018-01-19] MEDS: SUCRALFATE 1 GM TAB PO SCH (20:30)
[2018-01-19] MEDS: ATORVASTATIN 80 MG TAB PO SCH (20:30)
[2018-01-19] MEDS: TICAGRELOR 90 MG TAB PO SCH (20:30)
[2018-01-19] MEDS: VANCOMYCIN 1,500 MG in SODIUM CHLORIDE 0.9% 250 ML IVPB SCH (22:41)
[2018-01-19] MEDS ORDERED: ACETAMINOPHEN IV (For NPO) 1,000 MG in EMPTY BAG 1 BAG IVPB PRN (23:15)
--- NOTE | 2018-01-19 23:36 | XR ---
EXAMINATION TYPE: XR chest 1V portable DATE OF EXAM: 01/19/2018 COMPARISON: 01/19/2018 HISTORY: Aspiration pneumonia. Cough TECHNIQUE: Single frontal view of the chest is obtained. FINDINGS: Heart and mediastinum are normal. Lungs are clear. Diaphragm is normal. There are chest le ads. Bony thorax is intact. IMPRESSION: Normal chest. No evidence of pneumonia.
[2018-01-20] MEDS: METOCLOPRAMIDE 10 MG TAB PO SCH (05:57)
[2018-01-20] MEDS: PANTOPRAZOLE 40 MG TABLET PO SCH (05:57)
[2018-01-20] MEDS: SODIUM CHLORIDE 0.9% 1,000 ML IV SCH ×2 (06:53→12:27)
[2018-01-20] MEDS: VANCOMYCIN 1,500 MG in SODIUM CHLORIDE 0.9% 250 ML IVPB SCH ×3 (08:08→22:53)
[2018-01-20] MEDS: AMANTADINE HCL 100 MG CAP PO SCH ×2 (10:37→14:04)
[2018-01-20] MEDS: FERROUS SULFATE 325 MG TAB PO SCH (10:37)
[2018-01-20] MEDS: SERTRALINE 50 MG TAB PO SCH (10:38)
[2018-01-20] MEDS: TICAGRELOR 90 MG TAB PO SCH ×2 (10:38→20:21)
[2018-01-20] MEDS: ASPIRIN 81 MG PO SCH (10:38)
--- NOTE | 2018-01-20 11:18 | P.PN ---
Subjective Progress Note Date: 01/20/18 Principal diagnosis: Lethargy Patient is a 62-year-old male with a history of recent stroke requiring left-sided intervention by interventional neurology at [facility] recently discharged from rehab, GERD, acid reflux, recent GI bleed secondary to duodenal ulcer who presented to the emergency department with lethargy and fever. On arrival to the ER he was tachycardic with a heart rate of 129 his temperature was 99.2. Laboratory analysis showed an elevated white blood cell count at 15.8 and an elevated lactic acid at 2.5. Urinalysis was consistent with urinary tract infection. He was given a dose of Vanco, Rocephin, and was started on IV fluids. Arrangements were made for admission for treatment of UTI and sepsis. He was continued on rocephin. He had an episode of choking on pills overnight on 01/19 and was made NPO. Speech was consulted. He was upset as he was unable to eat for a long time and just was able to have his diet upgraded again. Patient seen and examined at bedside. He is upset about being nothing by mouth and having a roommate. He denies any chest pain or shortness of breath. He is not feeling nauseous. He denies any diarrhea or constipation. He is feeling Is Not Handling His Roommate Well. He Is Threatening to Leave AMA but States That If We Could Get Him a Private Room and His Diet reinstated. He Would Be Willing to Stay in Receive Treatment. Discussed with Charge Nurse and We Will Facilitate Him Having a Private Room. Objective - Vital Signs Vital signs: Vital Signs Temp 99.6 F 01/20/18 08:01 Pulse 111 H 01/20/18 08:01 Resp 16 01/20/18 08:01 BP 155/91 01/20/18 08:01 Pulse Ox 98 01/20/18 08:01 Intake & Output 01/19/18 01/20/18 01/20/18 18:59 06:59 18:59 Intake Total 700 Output Total 600 Balance 100 Weight 77.111 kg 77.111 kg Intake: Intake, IV Titration 700 Amount Sodium Chloride 0.9% 1, 450 000 ml @ 100 mls/hr IV . Q10H [facility] Rx#:[id number] Vancomycin 1,500 mg In 250 Sodium Chloride 0.9% 250 ml @ 125 mls/hr IVPB ONCE ONE Rx#:[id number] Output: Urine 600 Other: Voiding Method Urinal # Voids 3 - Exam General: non toxic, no distress, appears older than stated age Derm: warm, dry Head: atraumatic, normocephalic, symmetric Eyes: EOMI, no lid lag, anicteric sclera Mouth: no lip lesion, mucus membranes moist Cardiovascular: S1S2 reg, no murmur, positive posterior tibial pulse bilateral, Lungs: CTA bilateral, no rhonchi, no rales , no accessory muscle use Abdominal: soft, nontender to palpation, no guarding, no appreciable organomegaly, + peg tube Ext: no gross muscle atrophy, no edema, no contractures Neuro: dysarthria, flaccid right upper extremity Psych: Alert, oriented, Upset and agitated - Labs CBC & Chem 7: 01/19/18 14:44 01/19/18 14:44 Labs: Abnormal Lab Results - Last 24 Hours (Table) 01/19/18 01/19/18 01/19/18 Range/Units 14:44 14:44 14:44 WBC 15.8 H (3.8-10.6) k/uL RBC 3.93 L (4.30-5.90) m/uL Hgb 12.5 L (13.0-17.5) gm/dL Hct 38.1 L (39.0-53.0) % Neutrophils # 14.8 H (1.3-7.7) k/uL Lymphocytes # 0.4 L (1.0-4.8) k/uL Carbon Dioxide 20 L (22-30) mmol/L Creatinine 0.60 L (0.66-1.25) mg/dL Glucose 156 H (74-99) mg/dL Plasma Lactic Acid Zacarias 2.5 H* (0.7-2.0) mmol/L Urine Protein (Negative) Urine Blood (Negative) Ur Leukocyte Esterase (Negative) Urine RBC (0-5) /hpf Urine WBC (0-5) /hpf Urine Bacteria (None) /hpf Urine Mucus (None) /hpf 01/19/18 Range/Units 15:36 WBC (3.8-10.6) k/uL RBC (4.30-5.90) m/uL Hgb (13.0-17.5) gm/dL Hct (39.0-53.0) % Neutrophils # (1.3-7.7) k/uL Lymphocytes # (1.0-4.8) k/uL Carbon Dioxide (22-30) mmol/L Creatinine (0.66-1.25) mg/dL Glucose (74-99) mg/dL Plasma Lactic Acid Zacarias (0.7-2.0) mmol/L Urine Protein 2+ H (Negative) Urine Blood Small H (Negative) Ur Leukocyte Esterase Large H (Negative) Urine RBC 24 H (0-5) /hpf Urine WBC >182 H (0-5) /hpf Urine Bacteria Moderate H (None) /hpf Urine Mucus Rare H (None) /hpf Microbiology - Last 24 Hours (Table) 01/19/18 15:36 Urine Culture - Preliminary Urine,Voided Assessment and Plan Assessment: UTI with sepsis as evidenced by elevated white blood cell count and tachycardia -Rocephin -Urine culture pending -Blood culture pending -IV fluids -Check post void residual with recent stroke- patient refusing Choking episode - Await speech evaluation - crush medications CVA with residual right-sided deficits -Consult PT/OT -corieillentterry, lipitor -Supportive care Anemia -Increasing since discharge in October -Continue with outpatient Fesol -Follow CBC GERD with recent GI bleed -on PPI Lactic acidosis -Resolved after IV fluids DVT prophylaxis: SCD Discussed with: patient, nursing, charge nurse Anticipated discharge date: 10/[address]: home with home health A total of 35 minutes was spent on the care of this complex patient more than 50 % of the time was spent in counseling and care coordination.
--- NOTE | 2018-01-20 13:37 | CDI ---
Last Revision, June 2017 Documentation Clarification Form Date: 01/20/2018 1:31:00 PM From: Cristy Pierson RN, CCDS Admit Date: 01/19/2018 5:22:00 PM Patient Name: Carlos Hanson Visit Number: [id number] ATTENTION: The Clinical Documentation Specialists (CDI) and [facility] Coding Staff appreciate your assistance in clarifying documentation. Please respond to the clarification below the line at the bottom and electronically sign. The CDI & [facility] Coding staff will review the response and follow-up if needed. Please note: Queries are made part of the Legal Health Record. If you have any questions, please contact the author of this message via ITS. Dr. Telma Hanson A diagnosis of anemia lacks specificity to accurately reflect your patients severity of condition and clarification is needed. History/Risk Factors: Anemia, CVA, GIB w duodenal ulcer Clinical indicators: 01/19 H&P: "Anemia -Increasing since discharge in October -Continue with outpatient Feest (Feosol?) all -Follow CBC " Hemoglobin: 12.5 Hematocrit: 38.1 Treatment: CBC Monitoring Feosol 325 MG PO QD In order to capture the severity of condition, please clarify the type of anemia and etiology if known: Chronic blood loss anemia Iron deficiency anemia Nutritional anemia Unable to determine Other, please specify Please continue to document in your progress notes and discharge summary in order to capture severity of illness and risk of mortality. Include clinical findings that support your diagnosis. Iron deficiency anemia MTDD
[2018-01-20 15:01] LABS: HCT 29.4 % (39.0-53.0); HGB 9.8 gm/dL (13.0-17.5); MCH 32.6 pg (25.0-35.0); MCHC 33.4 g/dL (31.0-37.0); MCV 97.7 fL (80.0-100.0); Mean Platelet Volume 7.1; Platelet Count 249 k/uL (150-450); RBC 3.01 m/uL (4.30-5.90); RDW 14.9 % (11.5-15.5); WBC 14.4 k/uL (3.8-10.6)
[2018-01-20 15:11] LABS: Anion Gap 10 mmol/L; Blood Urea Nitrogen 10 mg/dL (9-20); Calcium 8.6 mg/dL (8.4-10.2); Carbon Dioxide 22 mmol/L (22-30); Chloride 107 mmol/L (98-107); Glucose 119 mg/dL (74-99); Potassium 3.3 mmol/L (3.5-5.1); Sodium 139 mmol/L (137-145)
[2018-01-20] MEDS: cefTRIAXone IN SWFI 2,000 MG/20 ML SYRINGE IVP SCH (16:36)
[2018-01-20] MEDS ORDERED: POTASSIUM CHLORIDE 20 MEQ in WATER FOR INJECTION 1 100ML.BAG IVPB STA (18:00)
[2018-01-20] MEDS: ATORVASTATIN 80 MG TAB PO SCH (20:21)
[2018-01-20] MEDS: SUCRALFATE 1 GM TAB PO SCH (20:21)
[2018-01-20] MEDS ORDERED: VANCOMYCIN TROUGH DUE 1 EACH MISC MISCELLANE ONE (22:00)
[2018-01-21] MEDS: SODIUM CHLORIDE 0.9% 1,000 ML IV SCH ×3 (05:44→21:53)
[2018-01-21] MEDS: METOCLOPRAMIDE 10 MG TAB PO SCH (05:44)
[2018-01-21] MEDS: PANTOPRAZOLE 40 MG TABLET PO SCH (05:45)
[2018-01-21] MEDS: VANCOMYCIN 1,500 MG in SODIUM CHLORIDE 0.9% 250 ML IVPB SCH (07:41)
[2018-01-21 07:46] LABS: HCT 32.1 % (39.0-53.0); HGB 10.6 gm/dL (13.0-17.5); MCH 32.1 pg (25.0-35.0); MCV 97.2 fL (80.0-100.0); Mean Platelet Volume 7.6; Platelet Count 280 k/uL (150-450); RBC 3.31 m/uL (4.30-5.90); RDW 14.7 % (11.5-15.5); WBC 13.9 k/uL (3.8-10.6)
[2018-01-21] MEDS: TICAGRELOR 90 MG TAB PO SCH ×2 (07:49→21:53)
[2018-01-21] MEDS: ASPIRIN 81 MG PO SCH (07:49)
[2018-01-21] MEDS: SERTRALINE 50 MG TAB PO SCH (07:49)
[2018-01-21] MEDS: AMANTADINE HCL 100 MG CAP PO SCH ×2 (07:49→12:25)
[2018-01-21] MEDS: FERROUS SULFATE 325 MG TAB PO SCH (07:49)
[2018-01-21 08:05] LABS: Anion Gap 12 mmol/L; Blood Urea Nitrogen 7 mg/dL (9-20); Calcium 9.1 mg/dL (8.4-10.2); Carbon Dioxide 24 mmol/L (22-30); Chloride 105 mmol/L (98-107); Glucose 109 mg/dL (74-99); Potassium 3.4 mmol/L (3.5-5.1); Sodium 141 mmol/L (137-145)
[2018-01-21] MEDS ORDERED: traMADol 50 MG TAB PO PRN (10:09)
[2018-01-21] MEDS ORDERED: ACETAMINOPHEN TAB 325 MG TAB PO PRN (10:10)
--- NOTE | 2018-01-21 10:18 | P.PN ---
Subjective Progress Note Date: 01/21/18 Principal diagnosis: Lethargy Patient is a 62-year-old male with a history of recent stroke requiring left-sided intervention by interventional neurology at [facility] recently discharged from rehab, GERD, acid reflux, recent GI bleed secondary to duodenal ulcer who presented to the emergency department with lethargy and fever. On arrival to the ER he was tachycardic with a heart rate of 129 his temperature was 99.2. Laboratory analysis showed an elevated white blood cell count at 15.8 and an elevated lactic acid at 2.5. Urinalysis was consistent with urinary tract infection. He was given a dose of Vanco, Rocephin, and was started on IV fluids. Arrangements were made for admission for treatment of UTI and sepsis. He was continued on rocephin. He had an episode of choking on pills overnight on 01/19 and was made NPO. Speech was consulted. He was upset as he was unable to eat for a long time and just was able to have his diet upgraded again. By the morning of 01/21 he was in better spirits. His WBC was still elevated near 14. Patient seen and examined at bedside. Did not sleep for the last 3 days and tired. Decreased oral intake. No appetite. No SOB or nausea. Feeling tired and fatigued. Objective - Vital Signs Vital signs: Vital Signs Temp 98.2 F 01/21/18 05:47 Pulse 108 H 01/21/18 05:47 Resp 16 01/21/18 05:47 BP 168/94 01/21/18 05:47 Pulse Ox 94 L 01/21/18 05:47 Intake & Output 01/20/18 01/21/18 01/21/18 18:59 06:59 18:59 Intake Total 2060 240 Output Total 1100 200 Balance 960 -200 240 Intake: Intake, IV Titration 1100 Amount Sodium Chloride 0.9% 1, 600 000 ml @ 100 mls/hr IV . Q10H [facility] Rx#:[id number] Vancomycin 1,500 mg In 250 Sodium Chloride 0.9% 250 ml @ 125 mls/hr IVPB ONCE ONE Rx#:[id number] Vancomycin 1,500 mg In 250 Sodium Chloride 0.9% 250 ml @ 125 mls/hr IVPB Q8H [facility] Rx#:[id number] Oral 960 240 Output: Urine 1100 200 Other: Voiding Method Urinal Urinal # Voids 4 - Exam General: non toxic, no distress, appears older than stated age Derm: warm, dry Head: atraumatic, normocephalic, symmetric Eyes: EOMI, no lid lag, anicteric sclera Mouth: no lip lesion, mucus membranes moist Cardiovascular: S1S2 reg, no murmur, positive posterior tibial pulse bilateral, Lungs: decreased bs b/l bases, no rhonchi, no rales , no accessory muscle use Abdominal: soft, nontender to palpation, no guarding, no appreciable organomegaly, + peg tube Ext: no gross muscle atrophy, no edema, no contractures, palpable mass right LE Neuro: dysarthria, flaccid right upper extremity Psych: Alert, oriented, Upset and agitated - Labs CBC & Chem 7: 01/21/18 07:19 01/21/18 07:19 Labs: Abnormal Lab Results - Last 24 Hours (Table) 01/20/18 01/20/18 01/21/18 Range/Units 14:36 14:36 07:19 WBC 14.4 H 13.9 H (3.8-10.6) k/uL RBC 3.01 L 3.31 L (4.30-5.90) m/uL Hgb 9.8 L D 10.6 L (13.0-17.5) gm/dL Hct 29.4 L 32.1 L (39.0-53.0) % Potassium 3.3 L (3.5-5.1) mmol/L BUN (9-20) mg/dL Creatinine 0.61 L (0.66-1.25) mg/dL Glucose 119 H (74-99) mg/dL 01/21/18 Range/Units 07:19 WBC (3.8-10.6) k/uL RBC (4.30-5.90) m/uL Hgb (13.0-17.5) gm/dL Hct (39.0-53.0) % Potassium 3.4 L (3.5-5.1) mmol/L BUN 7 L (9-20) mg/dL Creatinine 0.59 L (0.66-1.25) mg/dL Glucose 109 H (74-99) mg/dL Microbiology - Last 24 Hours (Table) 01/19/18 15:36 Urine Culture - Final Urine,Voided 01/19/18 14:44 Blood Culture - Preliminary Blood No Growth after 24 hours Assessment and Plan Assessment: UTI with sepsis as evidenced by elevated white blood cell count and tachycardia -Rocephin -Urine culture negative but pt with symptoms will treat as infection -Blood culture negative to date -IV fluids -Check post void residual with recent stroke Right LE pain - check venous doppler Insomnia - due to pain - resume night time ultram - patient does not want melatonin Decreased appetite - at bedside and states they were told to use PEG tube if not eating, has a can of ensure enlive that she states the patient was supposed to use if not eating when discharged from rehab. CVA with residual right-sided deficits -Consult PT/OT -raven plataitor -Supportive care Anemia -Increasing since discharge in October -Continue with outpatient Fesol -Follow CBC GERD with recent GI bleed -on PPI Lactic acidosis -Resolved after IV fluids Choking episode - speech evaluation passed swallow - crush medications DVT prophylaxis: SCD Discussed with: patient, nursing, Anticipated discharge date: 10/[address]: home with home health A total of 35 minutes was spent on the care of this complex patient more than 50 % of the time was spent in counseling and care coordination.
[2018-01-21 11:09] VITALS: BMI 24.3
--- NOTE | 2018-01-21 11:10 | US ---
EXAMINATION TYPE: US venous doppler duplex LE RT DATE OF EXAM: 01/21/2018 10:42 AM COMPARISON: NONE CLINICAL HISTORY: pain and mass. SIDE PERFORMED: Right TECHNIQUE: The lower extremity deep venous system is examined utilizing real time linear array sonog angela with graded compression, doppler sonography and color-flow sonography. VESSELS IMAGED: External Iliac Vein (EIV) Common Femoral Vein Deep Femoral Vein Greater Saphenous Vein * Femoral Vein Popliteal Vein Small Saphenous Vein * Proximal Calf Veins (* superficial vessels) Right Leg: Negative for DVT Patient feels tightness and lump in posterior calf. This area scanned by technologist, no evident mas s or fluid collection at this area. Grayscale, color doppler, spectral doppler imaging performed of the deep veins of the right lower ext remity. There is normal flow, compressibility, vascular waveforms. IMPRESSION: No ultrasound evidence for acute DVT in the right lower extremity. No suspicious finding at right calf level towards end of study on images saved.
[2018-01-21] MEDS ORDERED: VANCOMYCIN 1,250 MG in SODIUM CHLORIDE 0.9% 250 ML IVPB SCH (15:00)
[2018-01-21] MEDS: cefTRIAXone IN SWFI 2,000 MG/20 ML SYRINGE IVP SCH (17:34)
[2018-01-21] MEDS: ATORVASTATIN 80 MG TAB PO SCH (21:53)
[2018-01-21] MEDS: traMADol 50 MG TAB PO SCH (21:53)
[2018-01-21] MEDS: SUCRALFATE 1 GM TAB PO SCH (21:53)
[2018-01-21 23:31] LABS: Glucose,Whole Blood 140 mg/dL (75-99)
[2018-01-21] MEDS: INSULIN ASPART 100 UNIT/ML 1 ML 10 ML VIAL SQ SCH (23:40)
[2018-01-22] MEDS: SODIUM CHLORIDE 0.9% 1,000 ML IV SCH ×3 (01:41→22:49)
[2018-01-22 02:44] LABS: Hemoglobin A1C 4.9 % (4.0-6.0)
[2018-01-22 05:35] LABS: Glucose,Whole Blood 131 mg/dL (75-99)
[2018-01-22] MEDS: INSULIN ASPART 100 UNIT/ML 1 ML 10 ML VIAL SQ SCH ×3 (05:41→18:16)
[2018-01-22] MEDS: METOCLOPRAMIDE 10 MG TAB PO SCH (06:15)
[2018-01-22] MEDS: PANTOPRAZOLE 40 MG TABLET PO SCH (06:16)
[2018-01-22 07:53] LABS: HCT 31.2 % (39.0-53.0); HGB 10.1 gm/dL (13.0-17.5); Hypochromasia Slight; MCHC 32.3 g/dL (31.0-37.0); MCV 98.9 fL (80.0-100.0); Macrocytosis Slight; Mean Platelet Volume 7.2; Platelet Count 310 k/uL (150-450); RBC 3.16 m/uL (4.30-5.90); RDW 14.9 % (11.5-15.5); WBC 10.4 k/uL (3.8-10.6)
[2018-01-22 08:08] LABS: Anion Gap 13 mmol/L; Blood Urea Nitrogen 11 mg/dL (9-20); Calcium 8.5 mg/dL (8.4-10.2); Carbon Dioxide 22 mmol/L (22-30); Chloride 107 mmol/L (98-107); Glucose 123 mg/dL (74-99); Potassium 3.2 mmol/L (3.5-5.1); Sodium 142 mmol/L (137-145)
[2018-01-22] MEDS: FERROUS SULFATE 325 MG TAB PO SCH (08:26)
[2018-01-22] MEDS: TICAGRELOR 90 MG TAB PO SCH ×2 (08:26→20:34)
[2018-01-22] MEDS: SERTRALINE 50 MG TAB PO SCH (08:26)
[2018-01-22] MEDS: ASPIRIN 81 MG PO SCH (08:26)
[2018-01-22] MEDS: AMANTADINE HCL 100 MG CAP PO SCH ×2 (08:26→13:05)
[2018-01-22 12:00] LABS: Glucose,Whole Blood 176 mg/dL (75-99)
--- NOTE | 2018-01-22 14:50 | P.PN ---
Subjective Progress Note Date: 01/22/18 Principal diagnosis: Lethargy Patient is a 62-year-old male with a history of recent stroke requiring left-sided intervention by interventional neurology at [facility] recently discharged from rehab, GERD, acid reflux, recent GI bleed secondary to duodenal ulcer who presented to the emergency department with lethargy and fever. On arrival to the ER he was tachycardic with a heart rate of 129 his temperature was 99.2. Laboratory analysis showed an elevated white blood cell count at 15.8 and an elevated lactic acid at 2.5. Urinalysis was consistent with urinary tract infection. He was given a dose of Vanco, Rocephin, and was started on IV fluids. Arrangements were made for admission for treatment of UTI and sepsis. He was continued on rocephin. He had an episode of choking on pills overnight on 01/19 and was made NPO. Speech was consulted. He was upset as he was unable to eat for a long time and just was able to have his diet upgraded again. By the morning of 01/21 he was in better spirits. His WBC was still elevated near 14. He was started on tube feeds again to supplement his intake as it was less then 25%. Patient seen and examined at bedside. Slept better last night but not fully through the night. Wants to go home. Discussed with him the use of tube feeding. His has not had to administer tube feeding at home before needs training information on where to find supplies. Denies chest pain, shortness of breath, nausea, or vomiting. States the reason he is not eating as well as he does not like the food here. Objective - Vital Signs Vital signs: Vital Signs Temp 97.9 F 01/22/18 05:22 Pulse 110 H 01/22/18 08:00 Resp 18 01/22/18 08:00 BP 146/67 01/22/18 05:22 Pulse Ox 96 01/22/18 05:22 Intake & Output 01/21/18 01/22/18 01/22/18 18:59 06:59 18:59 Intake Total 600 1500 400 Output Total 128 650 Balance 472 850 400 Weight 77.111 kg Intake: Intake, IV Titration 900 Amount Sodium Chloride 0.9% 1, 900 000 ml @ 100 mls/hr IV . Q10H [facility] Rx#:[id number] Oral 600 Tube Feeding 600 400 Output: Urine 650 Post Void Residual 128 Other: Voiding Method Urinal Urinal Urinal - Exam General: non toxic, no distress, appears older than stated age Derm: warm, dry Head: atraumatic, normocephalic, symmetric Eyes: EOMI, no lid lag, anicteric sclera Mouth: no lip lesion, mucus membranes moist Cardiovascular: S1S2 reg, no murmur, positive posterior tibial pulse bilateral, Lungs: decreased bs b/l bases, no rhonchi, no rales , no accessory muscle use Abdominal: soft, nontender to palpation, no guarding, no appreciable organomegaly, + peg tube Ext: no gross muscle atrophy, no edema, no contractures Neuro: dysarthria, flaccid right upper extremity Psych: Alert, oriented, calm and pleasant, frustrated about not leaving today - Labs CBC & Chem 7: 01/22/18 07:25 01/22/18 07:25 Labs: Abnormal Lab Results - Last 24 Hours (Table) 01/21/18 01/22/18 01/22/18 Range/Units 23:30 05:33 07:25 RBC 3.16 L (4.30-5.90) m/uL Hgb 10.1 L (13.0-17.5) gm/dL Hct 31.2 L (39.0-53.0) % Potassium (3.5-5.1) mmol/L Creatinine (0.66-1.25) mg/dL Glucose (74-99) mg/dL POC Glucose (mg/dL) 140 H 131 H (75-99) mg/dL 01/22/18 01/22/18 Range/Units 07:25 11:54 RBC (4.30-5.90) m/uL Hgb (13.0-17.5) gm/dL Hct (39.0-53.0) % Potassium 3.2 L (3.5-5.1) mmol/L Creatinine 0.60 L (0.66-1.25) mg/dL Glucose 123 H (74-99) mg/dL POC Glucose (mg/dL) 176 H (75-99) mg/dL Microbiology - Last 24 Hours (Table) 01/21/18 20:00 Urine Culture - Preliminary Urine,Voided 01/19/18 14:44 Blood Culture - Preliminary Blood No Growth after 48 hours Assessment and Plan Assessment: UTI with sepsis as evidenced by elevated white blood cell count and tachycardia -Rocephin will treat for a totoal of 10 days as a complicated infection -Urine culture negative but pt with symptoms will treat as infection -Blood culture negative to date -IV fluids -post void residuals normal. Inadaquate oral intake - Patient started on tube feeds, dietitian to see patient again to help make arrangement for discharge. Right LE pain -doppler negative - suspect spasms due to recent stroke - does not want to initiate different meds at this point in time. Insomnia - due to pain - melatonin added today - continue ultram CVA with residual right-sided deficits -Consult PT/OT -sherlyn lipitor -Supportive care Anemia, stable at baseline -Continue with outpatient Fesol -Follow CBC GERD with recent GI bleed -on PPI Lactic acidosis -Resolved after IV fluids Choking episode - speech evaluation passed swallow - crush medications DVT prophylaxis: SCD Discussed with: patient, nursing, Anticipated discharge date: 10/24 to set up tube feeding and educate Anticipated discharge place: home with home health A total of 35 minutes was spent on the care of this complex patient more than 50 % of the time was spent in counseling and care coordination.
[2018-01-22] MEDS: cefTRIAXone IN SWFI 2,000 MG/20 ML SYRINGE IVP SCH (16:18)
[2018-01-22 17:43] LABS: Glucose,Whole Blood 136 mg/dL (75-99)
[2018-01-22] MEDS: SUCRALFATE 1 GM TAB PO SCH (20:34)
[2018-01-22] MEDS: ATORVASTATIN 80 MG TAB PO SCH (20:34)
[2018-01-22] MEDS ORDERED: MELATONIN 5 MG TABLET PO SCH (21:00)
[2018-01-22] MEDS: traMADol 50 MG TAB PO SCH (22:50)
[2018-01-23 00:12] LABS: Glucose,Whole Blood 119 mg/dL (75-99)
[2018-01-23] MEDS: INSULIN ASPART 100 UNIT/ML 1 ML 10 ML VIAL SQ SCH ×2 (00:24→06:31)
[2018-01-23 05:39] VITALS: BP 137/86; PULSE 87; RESP 18; TEMP 98.1
[2018-01-23 05:59] LABS: Glucose,Whole Blood 100 mg/dL (75-99)
[2018-01-23] MEDS: PANTOPRAZOLE 40 MG TABLET PO SCH (06:34)
[2018-01-23] MEDS: METOCLOPRAMIDE 10 MG TAB PO SCH (06:34)
[2018-01-23] MEDS ORDERED: POTASSIUM BICARBONATE/CIT AC 20 MEQ TABLET.EFF PO ONE (08:00)
[2018-01-23] MEDS: FERROUS SULFATE 325 MG TAB PO SCH (09:20)
[2018-01-23] MEDS: SERTRALINE 50 MG TAB PO SCH (09:20)
[2018-01-23] MEDS: ASPIRIN 81 MG PO SCH (09:20)
[2018-01-23] MEDS: AMANTADINE HCL 100 MG CAP PO SCH ×2 (09:20→12:00)
[2018-01-23] MEDS: TICAGRELOR 90 MG TAB PO SCH (09:21)
[2018-01-23 12:10] LABS: Glucose,Whole Blood 101 mg/dL (75-99)
--- NOTE | 2018-01-23 12:46 | P.DS ---
Providers Date of admission: 01/19/18 17:22 Expected date of discharge: 01/23/18 Attending physician: Telma Hanson DO Primary care physician: Roslyn Drummond MD Hospital Course: Discharge diagnosis: UTI with sepsis Inadequate oral intake Insomnia CVA with residual right-sided deficits Anemia, chronic and stable GERD Latic acidosis Right lower extremity pain suspect secondary to stroke Hospital course: Patient is a 62-year-old male with a history of recent stroke requiring left-sided intervention by interventional neurology at [facility] recently discharged from rehab, GERD, acid reflux, recent GI bleed secondary to duodenal ulcer who presented to the emergency department with lethargy and fever. On arrival to the ER he was tachycardic with a heart rate of 129 his temperature was 99.2. Laboratory analysis showed an elevated white blood cell count at 15.8 and an elevated lactic acid at 2.5. Urinalysis was consistent with urinary tract infection. He was given a dose of Vanco, Rocephin, and was started on IV fluids. Arrangements were made for admission for treatment of UTI and sepsis. He was continued on rocephin. He had an episode of choking on pills overnight on 01/19 and was made NPO. Speech was consulted. He was upset as he was unable to eat for a long time and just was able to have his diet upgraded again adn passed his swallow study. By the morning of 01/21 he was in better spirits. His WBC was still elevated near 14. He was started on tube feeds again to supplement his intake as it was less then 25%. He was seen by dietitian and instructions were provided on how to do tube feeds at home and what supplements to use. He was determined stable for discharge. He will complete a 10 day course of antibiotics and total due to his complicated urinary tract infection how slow he was to respond to sepsis. He was sent with a prescription for Vantin 200 mg twice a day 6 days. He was also recommended to use melatonin as needed to help with sleep at home. Recommend repeat UA to ensure clearance of infection at follow up appointment. Patient seen and examined at bedside. Feeling back in better spirits. No abdominal pain. Nausea. Or vomiting. Ate a small amount of breakfast. Vital signs reviewed and stable. General: non toxic, no distress, appears older than stated age Derm: warm, dry Head: atraumatic, normocephalic, symmetric Eyes: EOMI, no lid lag, anicteric sclera Mouth: no lip lesion, mucus membranes moist Cardiovascular: S1S2 reg, no murmur, positive posterior tibial pulse bilateral, Lungs: decreased bs b/l bases, no rhonchi, no rales , no accessory muscle use Abdominal: soft, nontender to palpation, no guarding, no appreciable organomegaly, + peg tube Ext: no gross muscle atrophy, no edema, no contractures Neuro: Speech improved, flaccid right upper extremity Psych: Alert, oriented, calm and pleasant, excited to go home. A total of 40 minutes of time were spent preparing this complex discharge summary . Pertinent Studies: Right lower extremity Doppler-no acute process Chest x-ray-no evidence of pneumonia Patient Condition at Discharge: Good Plan - Discharge Summary Discharge Rx Participant: Yes New Discharge Prescriptions: New Melatonin 5 mg PO HS tablet traMADol HCl [Ultram] 50 mg PO HS tab Cefpodoxime Proxetil [Vantin] 200 mg PO Q12HR #12 tab Continue Sucralfate [Carafate] 1 gm PO HS@1999 Ferrous Sulfate [Feosol] 325 mg PO DAILY@0800 Ticagrelor [Brilinta] 90 mg PO BID@, Sertraline [Zoloft] 50 mg PO DAILY@08 Atorvastatin [Lipitor] 80 mg PO HS@1999 Aspirin 81 mg PO DAILY@0800 Metoclopramide [Reglan] 20 mg PO AC-BRKFST@629 Amantadine HCl [Symmetrel] 200 mg PO AC-BID@, Pantoprazole Sodium [Protonix] 40 mg PO AC-BRKFST@0600 Discharge Medication List Ferrous Sulfate [Feosol] 325 mg PO DAILY@79912/17/17 [History] Sucralfate [Carafate] 1 gm PO HS@199912/17/17 [History] Amantadine HCl [Symmetrel] 200 mg PO AC-BID@08,12 01/19/18 [History] Aspirin 81 mg PO DAILY@0800 01/19/18 [History] Atorvastatin [Lipitor] 80 mg PO HS@199901/19/18 [History] Metoclopramide [Reglan] 20 mg PO AC-BRKFST@0630 01/19/18 [History] Pantoprazole Sodium [Protonix] 40 mg PO AC-BRKFST@0600 01/19/18 [History] Sertraline [Zoloft] 50 mg PO DAILY@0800 01/19/18 [History] Ticagrelor [Brilinta] 90 mg PO BID@08,20 01/19/18 [History] Cefpodoxime Proxetil [Vantin] 200 mg PO Q12HR #12 tab 01/23/18 [Rx] Melatonin 5 mg PO HS tablet 01/23/18 [Rx] traMADol HCl [Ultram] 50 mg PO HS tab 01/23/18 [Rx] Follow up Appointment(s)/Referral(s): [facility], [NON-STAFF] - 1 Week Roslyn Drummond MD [Primary Care Provider] - 1-2 days Activity/Diet/Wound Care/Special Instructions: Heart healthy diet Activity as tolerated Resume home care Supplement oral feeds with tube feeding as discussed Discharge Disposition: HOME WITH HOME HEALTH SERVICES
== END 2018-01-23 15:49 | disposition home health service (06) | DRG 872 ==
LOC: EC 14:12 → 5MS5E 17:22
PROVIDERS: ADMIT Internal Medicine; ATTEND Internal Medicine
DX: A41.9 Sepsis, unspecified organism (principal); E87.2 Acidosis; I69.351 Hemiplegia and hemiparesis following cerebral infarction affecting right dominant side; N39.0 Urinary tract infection, site not specified; D50.9 Iron deficiency anemia, unspecified; G47.00 Insomnia, unspecified; K21.9 Gastro-esophageal reflux disease without esophagitis; Z79.82 Long term (current) use of aspirin; Z80.51 Family history of malignant neoplasm of kidney; Z80.52 Family history of malignant neoplasm of bladder; Z82.5 Family history of asthma and other chronic lower respiratory diseases; Z82.49 Family history of ischemic heart disease and other diseases of the circulatory system; Z87.11 Personal history of peptic ulcer disease; Z87.891 Personal history of nicotine dependence; Z98.1 Arthrodesis status; M79.604 Pain in right leg; Z88.0 Allergy status to penicillin; R13.10 Dysphagia, unspecified; G89.29 Other chronic pain
CPT/HCPCS: 36415; 71045; 71046; 80048; 80053; 80202; 81001; 83036; 83605; 84484; 85025; 85027; 85610; 85730; 87040; 87086; 93005; 96361; 96365; 96366; 96375; 99291

== ENCOUNTER → 2018-05-13 | Outpatient (CLI) | payer BC ==
--- NOTE | 2018-05-14 10:12 | MM ---
Reason for exam: clinical finding. Baseline mammogram. Indicated problem(s): palpable abnormality in the left breast. Physical Findings: Nurse Summary: 1cm nodule in the left breast at 12 o'clock (nurse kp). MG Diagnostic Mammo w CAD VANIA Bilateral CC and MLO view(s) were taken. The breast tissue is almost entirely fat. No suspicious calcifications are seen. Flamed shaped density left retroareolar region, ultrasound is recommended. These results were verbally communicated with the patient and result sheet given to the patient on 05/13/18. ASSESSMENT: Incomplete: need additional imaging evaluation, BI-RAD 0 RECOMMENDATION: Ultrasound of the left breast. Manage patient on a clinical basis.
--- NOTE | 2018-05-14 10:14 | USB ---
Reason for exam: additional evaluation requested from abnormal screening. US Breast LT Left limited breast ultrasound including focal area of concern, retroareolar and axilla demonstrates a 1.2 x 1.3 x 0.5cm oval, irregular, hypoechoic lesion at the posterior nipple with internal hyperechoic focus. Probable gynecomastia. Follow up recommended. These results were verbally communicated with the patient and result sheet given to the patient on 05/13/18. ASSESSMENT: Probably benign, BI-RAD 3 RECOMMENDATION: Follow-up diagnostic mammogram and ultrasound of the left breast in 3 months.
== END ==
LOC: RADMAMWWP 13:33
PROVIDERS: ATTEND Family Medicine
DX: R92.8 Other abnormal and inconclusive findings on diagnostic imaging of breast (principal); N64.4 Mastodynia
CPT/HCPCS: 77066

== ENCOUNTER → 2018-08-25 | Outpatient (CLI) | payer MEDICARE ==
--- NOTE | 2018-08-26 08:33 | MM ---
Reason for exam: follow-up at short interval from prior study. Last mammogram was performed 3 months ago. Physical Findings: Nurse Summary: 1 x 1 cm nodule in the right breast at nipple and a 1 x 1 cm nodule in the left breast at nipple (nurse ts). MG 3D Diag Mammo W/Cad VANIA Bilateral CC and MLO view(s) were taken. Prior study comparison: May 13, 2018, bilateral MG diagnostic mammo w CAD VANIA. The breast tissue is heterogeneously dense. This may lower the sensitivity of mammography. Bilateral subareolar gynecomastia increased not on the right and decreased slightly on the left. These results were verbally communicated with the patient and result sheet given to the patient on 08/25/18. ASSESSMENT: Incomplete: need additional imaging evaluation, BI-RAD 0 RECOMMENDATION: Ultrasound of both breasts. (subareolar as ordered)
--- NOTE | 2018-08-26 08:36 | USB ---
Reason for exam: additional evaluation requested from abnormal screening. US Breast Limited LT Right limited breast ultrasound including focal area of concern, retroareolar and axilla demonstrates 1.5cm irregular subareolar gynecomastia at the posterior nipple. Left limited breast ultrasound including focal area of concern, retroareolar and axilla demonstrates a 1.7cm irregular subareolar gynecomastia at the posterior nipple. These results were verbally communicated with the patient and result sheet given to the patient on 08/25/18. ASSESSMENT: Benign, BI-RAD 2 RECOMMENDATION: Clinical management of both breasts. Manage on a clinical basis with regard to bilateral gynecomastia.
== END ==
LOC: RADMAMWWP 14:15
PROVIDERS: ATTEND Family Medicine
DX: R92.8 Other abnormal and inconclusive findings on diagnostic imaging of breast (principal); N64.4 Mastodynia; N63.0 Unspecified lump in unspecified breast
CPT/HCPCS: 77066; 76642; G0279; 77062

== ENCOUNTER 2019-07-16 17:30 | Emergency (ER) | payer MEDICARE ==
[2019-07-16 17:48] VITALS: TEMP 97.8
[2019-07-16] MEDS ORDERED: NITROGLYCERIN SL TABS 0.4 MG TAB SUBLINGUAL STA ×3 (18:17)
--- NOTE | 2019-07-16 18:20 | ED ---
General Adult HPI - General Chief complaint: Chest Pain Stated complaint: chest pain/SOB Time Seen by Provider: 07/16/19 17:59 Source: patient, family, RN notes reviewed Mode of arrival: ambulatory Limitations: no limitations - History of Present Illness Initial comments: Patient is a pleasant 64-year-old male presenting to the emergency Department with complaints of chest discomfort. Onset of symptoms was early this morning and have been persistent since that time. Symptoms did worsen when patient tried to do some exercise. Discomfort is described as pressure and rated 5/10. No radiation. There is some mild associated dyspnea. No nausea or diaphoresis. No history of similar symptoms previously. - Related Data Home Medications Medication Instructions Recorded Confirmed Ferrous Sulfate [Feosol] 325 mg PO DAILY@79912/17/17 01/19/18 Sucralfate [Carafate] 1 gm PO HS@199912/17/17 01/19/18 Amantadine HCl [Symmetrel] 200 mg PO AC-BID@01/19/18 01/19/18 Aspirin 81 mg PO DAILY@79901/19/18 01/19/18 Atorvastatin [Lipitor] 80 mg PO HS@199901/19/18 01/19/18 Metoclopramide [Reglan] 20 mg PO AC-BRKFST@62901/19/18 01/19/18 Pantoprazole Sodium [Protonix] 40 mg PO AC-BRKFST@59901/19/18 01/19/18 Sertraline [Zoloft] 50 mg PO DAILY@79901/19/18 01/19/18 Ticagrelor [Brilinta] 90 mg PO BID@01/19/18 01/19/18 Previous Rx's Medication Instructions Recorded Cefpodoxime Proxetil [Vantin] 200 mg PO Q12HR #12 tab 01/23/18 Melatonin 5 mg PO HS tablet 01/23/18 traMADol HCl [Ultram] 50 mg PO HS tab 01/23/18 traMADol HCl [Ultram] 50 mg PO QID PRN #28 tab 01/23/18 Allergies Allergy/AdvReac Type Severity Reaction Status Date / Time Penicillins Allergy Anaphylaxis Verified 07/16/19 17:45 Review of Systems ROS Statement: Those systems with pertinent positive or pertinent negative responses have been documented in the HPI. ROS Other: All systems not noted in ROS Statement are negative. Constitutional: Denies: fever Eyes: Denies: eye pain ENT: Denies: ear pain Respiratory: Reports: as per HPI. Denies: cough Cardiovascular: Reports: chest pain Endocrine: Denies: fatigue Gastrointestinal: Denies: abdominal pain Genitourinary: Denies: dysuria Musculoskeletal: Denies: back pain Skin: Denies: rash Neurological: Denies: weakness Past Medical History Past Medical History: CVA/TIA, GERD/Reflux Additional Past Medical History / Comment(s): History of achalasia status post esophageal dilation 2 in [facility]. Chronic neck and back pain, CVA with residual left-sided weakness, GI bleed secondary to duodenal ulcer History of Any Multi-Drug Resistant Organisms: None Reported Past Surgical History: Orthopedic Surgery Additional Past Surgical History / Comment(s): Right shoulder rotator cuff repair, neck fusion, EGD, intervention for stroke Past Anesthesia/Blood Transfusion Reactions: Previous Problems w/ Anesthesia Additional Past Anesthesia/Blood Transfusion Reaction / Comment(s): "they had difficult time getting him to go under" Past Psychological History: No Psychological Hx Reported Smoking Status: Former smoker Past Alcohol Use History: None Reported Past Drug Use History: None Reported - Past Family History Father Family Medical History: Cancer (Kidney cancer) Additional Family Medical History / Comment(s): bladder cancer, triple cabg Mother Family Medical History: Chest Pain / Angina, COPD Additional Family Medical History / Comment(s): emphysema General Exam Limitations: no limitations General appearance: alert, in no apparent distress Head exam: Present: normocephalic Eye exam: Present: normal appearance, PERRL ENT exam: Present: normal oropharynx Neck exam: Present: normal inspection Respiratory exam: Present: normal lung sounds bilaterally. Absent: chest wall tenderness Cardiovascular Exam: Present: regular rate, normal rhythm Expanded Peripheral pulses: 2+: Radial (R), Radial (L), Posterior Tibialis (R), Posterior Tibialis (L), Dorsalis Pedis (R), Dorsalis Pedis (L) GI/Abdominal exam: Present: soft. Absent: distended, tenderness Extremities exam: Present: normal inspection. Absent: pedal edema, calf tenderness Neurological exam: Present: alert Psychiatric exam: Present: normal affect, normal mood Skin exam: Present: normal color Course Vital Signs 07/16/19 07/16/19 07/16/19 17:45 18:51 19:02 Temperature 97.8 F Pulse Rate 79 81 Respiratory 18 19 Rate Blood Pressure 115/70 138/82 120/76 O2 Sat by Pulse 94 L 92 L Oximetry 07/16/19 07/16/19 19:30 20:00 Temperature Pulse Rate 71 78 Respiratory 20 20 Rate Blood Pressure 120/76 94/78 O2 Sat by Pulse 95 95 Oximetry EKG Findings - EKG Comments: EKG Findings:: Normal sinus rhythm 75. IN 168. QRS 80. QT 378. QTC 422. Normal axis. Normal QRS. Early repolarization. Medical Decision Making - Medical Decision Making Patient reevaluated and resting comfortably in bed. No improvement with nitroglycerin. Patient and family updated on results and plan. Gautam was discussed with Dr. Huang, who will admit for Dr. Sharp. - Lab Data Result diagrams: 07/16/19 18:07 07/16/19 18:07 Lab Results 07/16/19 07/16/19 07/16/19 Range/Units 18:07 18:07 18:07 WBC 12.2 H (3.8-10.6) k/uL RBC 3.84 L (4.30-5.90) m/uL Hgb 13.0 (13.0-17.5) gm/dL Hct 39.5 (39.0-53.0) % MCV 102.9 H (80.0-100.0) fL MCH 33.9 (25.0-35.0) pg MCHC 33.0 (31.0-37.0) g/dL RDW 12.7 (11.5-15.5) % Plt Count 275 (150-450) k/uL Neutrophils % 78 % Lymphocytes % 16 % Monocytes % 4 % Eosinophils % 1 % Basophils % 0 % Neutrophils # 9.5 H (1.3-7.7) k/uL Lymphocytes # 2.0 (1.0-4.8) k/uL Monocytes # 0.5 (0-1.0) k/uL Eosinophils # 0.1 (0-0.7) k/uL Basophils # 0.0 (0-0.2) k/uL Macrocytosis Slight PT 9.5 (9.0-12.0) sec INR 0.9 (<1.2) APTT 25.7 (22.0-30.0) sec D-Dimer 0.30 (<0.60) mg/L FEU Sodium 140 (137-145) mmol/L Potassium 3.8 (3.5-5.1) mmol/L Chloride 106 (98-107) mmol/L Carbon Dioxide 26 (22-30) mmol/L Anion Gap 8 mmol/L BUN 20 (9-20) mg/dL Creatinine 0.72 (0.66-1.25) mg/dL Est GFR (CKD-EPI)AfAm >90 (>60 ml/min/1.73 sqM) Est GFR (CKD-EPI)NonAf >90 (>60 ml/min/1.73 sqM) Glucose 133 H (74-99) mg/dL Calcium 9.7 (8.4-10.2) mg/dL Magnesium 2.0 (1.6-2.3) mg/dL Total Bilirubin 0.5 (0.2-1.3) mg/dL AST 24 (17-59) U/L ALT 13 (4-49) U/L Alkaline Phosphatase 73 (38-126) U/L Creatine Kinase 59 (55-170) U/L Troponin I (0.000-0.034) ng/mL NT-Pro-B Natriuret Pep pg/mL Total Protein 7.4 (6.3-8.2) g/dL Albumin 4.4 (3.5-5.0) g/dL 07/16/19 07/16/19 Range/Units 18:07 18:07 WBC (3.8-10.6) k/uL RBC (4.30-5.90) m/uL Hgb (13.0-17.5) gm/dL Hct (39.0-53.0) % MCV (80.0-100.0) fL MCH (25.0-35.0) pg MCHC (31.0-37.0) g/dL RDW (11.5-15.5) % Plt Count (150-450) k/uL Neutrophils % % Lymphocytes % % Monocytes % % Eosinophils % % Basophils % % Neutrophils # (1.3-7.7) k/uL Lymphocytes # (1.0-4.8) k/uL Monocytes # (0-1.0) k/uL Eosinophils # (0-0.7) k/uL Basophils # (0-0.2) k/uL Macrocytosis PT (9.0-12.0) sec INR (<1.2) APTT (22.0-30.0) sec D-Dimer (<0.60) mg/L FEU Sodium (137-145) mmol/L Potassium (3.5-5.1) mmol/L Chloride (98-107) mmol/L Carbon Dioxide (22-30) mmol/L Anion Gap mmol/L BUN (9-20) mg/dL Creatinine (0.66-1.25) mg/dL Est GFR (CKD-EPI)AfAm (>60 ml/min/1.73 sqM) Est GFR (CKD-EPI)NonAf (>60 ml/min/1.73 sqM) Glucose (74-99) mg/dL Calcium (8.4-10.2) mg/dL Magnesium (1.6-2.3) mg/dL Total Bilirubin (0.2-1.3) mg/dL AST (17-59) U/L ALT (4-49) U/L Alkaline Phosphatase (38-126) U/L Creatine Kinase (55-170) U/L Troponin I <0.012 (0.000-0.034) ng/mL NT-Pro-B Natriuret Pep 106 pg/mL Total Protein (6.3-8.2) g/dL Albumin (3.5-5.0) g/dL - Radiology Data Radiology results: image reviewed (Chest x-ray shows no acute process) Disposition Clinical Impression: Chest pain Disposition: ADMITTED IP TO THIS HOSP Is patient prescribed a controlled substance at d/c from ED?: No Referrals: Yaniv Chou [Primary Care Provider] - 1-2 days Decision Time: 20:33
[2019-07-16] MEDS: ASPIRIN 81 MG PO STA (18:27)
[2019-07-16 19:02] LABS: Basophils % (A) 0 %; Eosinophils # (A) 0.1 k/uL (0-0.7); Eosinophils % (A) 1 %; HCT 39.5 % (39.0-53.0); Lymphocytes % (A) 16 %; MCH 33.9 pg (25.0-35.0); MCV 102.9 fL (80.0-100.0); Macrocytosis Slight; Mean Platelet Volume 8.2; Monocytes # (A) 0.5 k/uL (0-1.0); Monocytes % (A) 4 %; Neutrophils # (A) 9.5 k/uL (1.3-7.7); Neutrophils % (A) 78 %; Platelet Count 275 k/uL (150-450); RBC 3.84 m/uL (4.30-5.90); RDW 12.7 % (11.5-15.5); WBC 12.2 k/uL (3.8-10.6)
[2019-07-16 19:17] LABS: D-Dimer 0.3 mg/L FEU (<0.60); INR 0.9 (<1.2); Partial Thromboplastin Time 25.7 sec (22.0-30.0); Prothrombin Time 9.5 sec (9.0-12.0)
[2019-07-16 19:18] LABS: ALT 13 U/L (4-49); AST 24 U/L (17-59); African American GFR (CKD) >90 (>60 ml/min/1.73 sqM); Albumin 4.4 g/dL (3.5-5.0); Alkaline Phosphatase 73 U/L (38-126); Anion Gap 8 mmol/L; Blood Urea Nitrogen 20 mg/dL (9-20); Calcium 9.7 mg/dL (8.4-10.2); Carbon Dioxide 26 mmol/L (22-30); Chloride 106 mmol/L (98-107); Creatine Kinase 59 U/L (55-170); Glucose 133 mg/dL (74-99); Non-African American GFR(CKD) >90 (>60 ml/min/1.73 sqM); Potassium 3.8 mmol/L (3.5-5.1); Sodium 140 mmol/L (137-145); Total Bilirubin 0.5 mg/dL (0.2-1.3); Total Protein 7.4 g/dL (6.3-8.2)
--- NOTE | 2019-07-16 19:19 | XR ---
EXAMINATION TYPE: XR chest 2V DATE OF EXAM: 07/16/2019 COMPARISON: 01/19/2018 INDICATION: Chest pain shortness of breath TECHNIQUE: Frontal and lateral views of the chest are obtained. FINDINGS: The heart size is normal. The pulmonary vasculature is normal. The lungs are clear. IMPRESSION: 1. No acute pulmonary process.
[2019-07-16] MEDS ORDERED: MAG HYDROX/AL HYDROX/SIMETH 30 ML, HYOSCYAMINE ELIXIR 10 ML, LIDOCAINE VISCOUS 2% 10 ML PO STA ×3 (20:31)
[2019-07-16 20:54] VITALS: BP 128/86; PULSE 81; RESP 16
--- NOTE | 2019-07-16 21:00 | ED ---
Medical Decision Making - Medical Decision Making Patient is refusing admission. Patient and family updated on limitations of testing. They're made to understand that heart attack has not been ruled out as well as risk for heart attack in the near future. They did come straight medical decision making. Despite this they refused admission and will leave AGAINST MEDICAL ADVICE. - Lab Data Result diagrams: 07/16/19 18:07 07/16/19 18:07 Lab Results 07/16/19 07/16/19 07/16/19 Range/Units 18:07 18:07 18:07 WBC 12.2 H (3.8-10.6) k/uL RBC 3.84 L (4.30-5.90) m/uL Hgb 13.0 (13.0-17.5) gm/dL Hct 39.5 (39.0-53.0) % MCV 102.9 H (80.0-100.0) fL MCH 33.9 (25.0-35.0) pg MCHC 33.0 (31.0-37.0) g/dL RDW 12.7 (11.5-15.5) % Plt Count 275 (150-450) k/uL Neutrophils % 78 % Lymphocytes % 16 % Monocytes % 4 % Eosinophils % 1 % Basophils % 0 % Neutrophils # 9.5 H (1.3-7.7) k/uL Lymphocytes # 2.0 (1.0-4.8) k/uL Monocytes # 0.5 (0-1.0) k/uL Eosinophils # 0.1 (0-0.7) k/uL Basophils # 0.0 (0-0.2) k/uL Macrocytosis Slight PT 9.5 (9.0-12.0) sec INR 0.9 (<1.2) APTT 25.7 (22.0-30.0) sec D-Dimer 0.30 (<0.60) mg/L FEU Sodium 140 (137-145) mmol/L Potassium 3.8 (3.5-5.1) mmol/L Chloride 106 (98-107) mmol/L Carbon Dioxide 26 (22-30) mmol/L Anion Gap 8 mmol/L BUN 20 (9-20) mg/dL Creatinine 0.72 (0.66-1.25) mg/dL Est GFR (CKD-EPI)AfAm >90 (>60 ml/min/1.73 sqM) Est GFR (CKD-EPI)NonAf >90 (>60 ml/min/1.73 sqM) Glucose 133 H (74-99) mg/dL Calcium 9.7 (8.4-10.2) mg/dL Magnesium 2.0 (1.6-2.3) mg/dL Total Bilirubin 0.5 (0.2-1.3) mg/dL AST 24 (17-59) U/L ALT 13 (4-49) U/L Alkaline Phosphatase 73 (38-126) U/L Creatine Kinase 59 (55-170) U/L Troponin I (0.000-0.034) ng/mL NT-Pro-B Natriuret Pep pg/mL Total Protein 7.4 (6.3-8.2) g/dL Albumin 4.4 (3.5-5.0) g/dL 07/16/19 07/16/19 Range/Units 18:07 18:07 WBC (3.8-10.6) k/uL RBC (4.30-5.90) m/uL Hgb (13.0-17.5) gm/dL Hct (39.0-53.0) % MCV (80.0-100.0) fL MCH (25.0-35.0) pg MCHC (31.0-37.0) g/dL RDW (11.5-15.5) % Plt Count (150-450) k/uL Neutrophils % % Lymphocytes % % Monocytes % % Eosinophils % % Basophils % % Neutrophils # (1.3-7.7) k/uL Lymphocytes # (1.0-4.8) k/uL Monocytes # (0-1.0) k/uL Eosinophils # (0-0.7) k/uL Basophils # (0-0.2) k/uL Macrocytosis PT (9.0-12.0) sec INR (<1.2) APTT (22.0-30.0) sec D-Dimer (<0.60) mg/L FEU Sodium (137-145) mmol/L Potassium (3.5-5.1) mmol/L Chloride (98-107) mmol/L Carbon Dioxide (22-30) mmol/L Anion Gap mmol/L BUN (9-20) mg/dL Creatinine (0.66-1.25) mg/dL Est GFR (CKD-EPI)AfAm (>60 ml/min/1.73 sqM) Est GFR (CKD-EPI)NonAf (>60 ml/min/1.73 sqM) Glucose (74-99) mg/dL Calcium (8.4-10.2) mg/dL Magnesium (1.6-2.3) mg/dL Total Bilirubin (0.2-1.3) mg/dL AST (17-59) U/L ALT (4-49) U/L Alkaline Phosphatase (38-126) U/L Creatine Kinase (55-170) U/L Troponin I <0.012 (0.000-0.034) ng/mL NT-Pro-B Natriuret Pep 106 pg/mL Total Protein (6.3-8.2) g/dL Albumin (3.5-5.0) g/dL Disposition Clinical Impression: Chest pain Disposition: Left Against Medical Advice Instructions (If sedation given, give patient instructions): Chest Pain (ED) Additional Instructions: Please follow-up with your doctor in the next day or 2 for recheck. Also follow-up with cardiology. Aspirin daily. Return for increased pain, worsening symptoms or other concerns. Please be aware that heart attack has not been ruled out. Please be aware that risk for heart attack in the near future has not been ruled out. You're leaving AGAINST MEDICAL ADVICE. Is patient prescribed a controlled substance at d/c from ED?: No Referrals: Yaniv Chou [Primary Care Provider] - 1-2 days Silke Briseno MD [STAFF PHYSICIAN] - 1-2 days Time of Disposition: 21:00
== END 2019-07-16 21:33 | disposition left against medical advice (07) ==
LOC: EC 17:30
DX: R07.89 Other chest pain (principal); R06.02 Shortness of breath; K21.9 Gastro-esophageal reflux disease without esophagitis; I69.354 Hemiplegia and hemiparesis following cerebral infarction affecting left non-dominant side; Z79.82 Long term (current) use of aspirin; Z79.899 Other long term (current) drug therapy; Z88.0 Allergy status to penicillin; Z87.891 Personal history of nicotine dependence; Z98.1 Arthrodesis status
CPT/HCPCS: 36415; 71046; 80053; 82550; 83735; 83880; 84484; 85025; 85379; 85610; 85730; 93005; 99285

== ENCOUNTER → 2021-06-12 | Outpatient (CLI) | payer MEDICARE ==
--- NOTE | 2021-06-12 16:49 | US ---
EXAMINATION TYPE: US duplex aorta DATE OF EXAM: 06/12/2021 COMPARISON: CT 2018 CLINICAL HISTORY: Z13.6 AAA SCREENING, Z72.0 TOBACCO. EXAM MEASUREMENTS: Abdominal Aorta: TRV X AP cm Proximal: 1.8x2.8 Mid: 2.0x2.0 Distal: 1.5x1.7 Bifurcation: 0.6x0.9 0.8x0.9 Moderate amount of plaque seen throughout. atherosclerotic. IMPRESSION: 1. Small focal area of fusiform prominence within the midabdominal aortic AP diameter 2.0 cm. 2. Atheromatous plaquing may be causing narrowing of the distal abdominal aorta without obstruction.
== END | disposition home or self-care (01) ==
LOC: RADUSWWP 08:05
PROVIDERS: ATTEND Family Medicine
DX: Z13.6 Encounter for screening for cardiovascular disorders (principal); I70.0 Atherosclerosis of aorta; Z72.0 Tobacco use
CPT/HCPCS: 93979

== ENCOUNTER 2023-02-27 08:56 | Emergency (ER) | payer MEDICARE ==
--- NOTE | 2023-02-27 09:30 | ED ---
Upper Extremity HPI - General Chief Complaint: Extremity Injury, Upper Stated Complaint: hand injury Time Seen by Provider: 02/27/23 09:15 Source: patient, RN notes reviewed Mode of arrival: ambulatory Limitations: no limitations - History of Present Illness Initial Comments: 67-year-old male presents emergency Department with chief complaint right hand injury. Patient was in a scooter fell out catch himself with his right hand. Patient states that he has right hand pain and swelling and bruising noted. No other injuries. - Related Data Home Medications Medication Instructions Recorded Confirmed Ferrous Sulfate [Feosol] 325 mg PO DAILY@79912/17/17 01/19/18 Sucralfate [Carafate] 1 gm PO HS@199912/17/17 01/19/18 Aspirin 81 mg PO DAILY@79901/19/18 01/19/18 Atorvastatin [Lipitor] 80 mg PO HS@199901/19/18 01/19/18 Metoclopramide [Reglan] 20 mg PO AC-BRKFST@62901/19/18 01/19/18 Pantoprazole Sodium [Protonix] 40 mg PO AC-BRKFST@59901/19/18 01/19/18 Sertraline [Zoloft] 50 mg PO DAILY@79901/19/18 01/19/18 Ticagrelor [Brilinta] 90 mg PO BID@,01/19/18 01/19/18 amantadine HCL [Symmetrel] 200 mg PO AC-BID@08,01/19/18 01/19/18 Previous Rx's Medication Instructions Recorded Cefpodoxime Proxetil [Vantin] 200 mg PO Q12HR #12 tab 01/23/18 Melatonin 5 mg PO HS tablet 01/23/18 traMADol HCl [Ultram] 50 mg PO HS tab 01/23/18 traMADol HCl [Ultram] 50 mg PO QID PRN #28 tab 01/23/18 Allergies Allergy/AdvReac Type Severity Reaction Status Date / Time Penicillins Allergy Anaphylaxis Verified 02/27/23 09:07 Review of Systems ROS Statement: Those systems with pertinent positive or pertinent negative responses have been documented in the HPI. ROS Other: All systems not noted in ROS Statement are negative. Past Medical History Past Medical History: CVA/TIA, GERD/Reflux Additional Past Medical History / Comment(s): History of achalasia status post esophageal dilation [address] [facility]. Chronic neck and back pain, CVA with residual left-sided weakness, GI bleed secondary to duodenal ulcer History of Any Multi-Drug Resistant Organisms: None Reported Past Surgical History: Orthopedic Surgery Additional Past Surgical History / Comment(s): Right shoulder rotator cuff repair, neck fusion, EGD, intervention for stroke Past Anesthesia/Blood Transfusion Reactions: Previous Problems w/ Anesthesia Additional Past Anesthesia/Blood Transfusion Reaction / Comment(s): "they had difficult time getting him to go under" Past Psychological History: No Psychological Hx Reported Smoking Status: Never smoker Past Alcohol Use History: None Reported Past Drug Use History: None Reported - Past Family History Father Family Medical History: Cancer (Kidney cancer) Additional Family Medical History / Comment(s): bladder cancer, triple cabg Mother Family Medical History: Chest Pain / Angina, COPD Additional Family Medical History / Comment(s): emphysema General Exam Limitations: no limitations General appearance: alert, in no apparent distress Head exam: Present: atraumatic, normocephalic, normal inspection Eye exam: Present: normal appearance, PERRL, EOMI. Absent: scleral icterus, conjunctival injection, periorbital swelling ENT exam: Present: normal exam, mucous membranes moist Neck exam: Present: normal inspection, full ROM. Absent: tenderness, meningismus, lymphadenopathy Respiratory exam: Present: normal lung sounds bilaterally. Absent: respiratory distress, wheezes, rales, rhonchi, stridor Cardiovascular Exam: Present: regular rate, normal rhythm, normal heart sounds. Absent: systolic murmur, diastolic murmur, rubs, gallop, clicks Extremities exam: Present: other (Right hand there is extensive swelling fourth and fifth metacarpal region with ecchymosis noted any symptoms the no wrist or proximal forearm tenderness) Neurological exam: Present: alert Course Vital Signs 02/27/23 02/27/23 09:05 12:05 Temperature 98 F 97.9 F Pulse Rate 60 50 L Respiratory 18 16 Rate Blood Pressure 117/66 144/78 O2 Sat by Pulse 99 99 Oximetry Medical Decision Making - Medical Decision Making Was pt. sent in by a medical professional or institution (, PA, SUSTAINABILITY OFFICER, urgent care, hospital, or prison...) When possible be specific @ -No Did you speak to anyone other than the patient for history (EMS, parent, family, police, friend...)? What history was obtained from this source @ -No Did you review nursing and triage notes (agree or disagree)? Why? @ -I reviewed and agree with nursing and triage notes Were old charts reviewed (outside hosp., previous admission, EMS record, old EKG, old radiological studies, urgent care reports/EKG's, prison records)? Report findings @ -No old charts were reviewed Differential Diagnosis (chest pain, altered mental status, abdominal pain women, abdominal pain men, vaginal bleeding, weakness, fever, dyspnea, syncope, headache, dizziness, GI bleed, back pain, seizure, CVA, palpatations, mental health, musculoskeletal)? @ -Right hand. Sprain, right hand fracture EKG interpreted by me (3pts min.). @ -None X-rays interpreted by me (1pt min.). @ -X-ray right hand shows fourth and fifth metacarpal fracture CT interpreted by me (1pt min.). @ -None done U/S interpreted by me (1pt. min.). @ -None done What testing was considered but not performed or refused? (CT, X-rays, U/S, labs)? Why? @ -None What meds were considered but not given or refused? Why? @ -None Did you discuss the management of the patient with other professionals (professionals i.e. , PA, SUSTAINABILITY OFFICER, lab, RT, psych nurse, social insurance administrator, hand riveter, teacher, aoc aadc operations staff officer, vocational case manager)? Give summary @ -No Was smoking cessation discussed for >3mins.? @ -No Was critical care preformed (if so, how long)? @ -No Were there social determinants of health that impacted care today? How? (Homelessness, low income, unemployed, alcoholism, drug addiction, transportat ion, low edu. Level, literacy, decrease access to med. care, snf, rehab)? @ -No Was there de-escalation of care discussed even if they declined (Discuss DNR or withdrawal of care, Hospice)? DNR status @ -No What co-morbidities impacted this encounter? (DM, HTN, Smoking, COPD, CAD, Cancer, CVA, ARF, Chemo, Hep., AIDS, mental health diagnosis, sleep apnea, morbid obesity)? @ -None Was patient admitted / discharged? Hospital course, mention meds given and route, prescriptions, significant lab abnormalities, going to OR and other pertinent info. @ -Discharge patient was splinted and will follow-up with orthopedics for right hand fracture Undiagnosed new problem with uncertain prognosis? @ -No Drug Therapy requiring intensive monitoring for toxicity (Heparin, Nitro, Insulin, Cardizem)? @ -No Were any procedures done? @ -No Diagnosis/symptom? @ -[right hand fracture Acute, or Chronic, or Acute on Chronic? @ -acute Uncomplicated (without systemic symptoms) or Complicated (systemic symptoms)? @ -uncomplicated Side effects of treatment? @ -No Exacerbation, Progression, or Severe Exacerbation? @ -No Poses a threat to life or bodily function? How? (Chest pain, [place], [place], pneumonia, PE, COPD, DKA, ARF, appy, cholecystitis, CVA, Diverticulitis, Homicidal, Suicidal, threat to staff... and all critical care pts) @ -No Disposition Clinical Impression: Right hand fracture Disposition: HOME SELF-CARE Condition: Stable Instructions (If sedation given, give patient instructions): Hand Fracture (ED) Additional Instructions: Please return to the Emergency Department if symptoms worsen or any other concerns. Is patient prescribed a controlled substance at d/c from ED?: No Referrals: None,Stated [REFERRING] - 1-2 days Héctor Tolentino MD [STAFF PHYSICIAN] - 1-2 days Time of Disposition: 10:54
--- NOTE | 2023-02-27 10:35 | XR ---
EXAMINATION TYPE: XR hand complete RT DATE OF EXAM: 02/27/2023 10:29 AM INDICATION: Patient age:Male; 67 years old; Reason for study: pain; PHH. COMPARISON: None TECHNIQUE: Frontal, lateral and oblique views of the right hand were obtained. FINDINGS: Acute mildly displaced comminuted fracture of the fifth metacarpal head with 6 mm of shorte julieta. Acute minimally displaced fracture at the base of the fourth proximal phalanx. There is overlyi ng soft tissue edema. No dislocation. Normal alignment of the visualized joints. No acute osseous pa thology is identified. No evidence of soft tissue swelling. IMPRESSION: Acute fractures of the base of the fourth proximal phalanx and head of the fifth metacarpal.
[2023-02-27] MEDS ORDERED: ACET/COD 300 MG/30 MG STARTER PACK 6 TAB BTL PO STA (11:36)
[2023-02-27 12:07] VITALS: BP 144/78; PULSE 50; RESP 16; TEMP 97.9
== END 2023-02-27 12:05 | disposition home or self-care (01) ==
LOC: EC 08:56
DX: S62.619A Displaced fracture of proximal phalanx of unspecified finger, initial encounter for closed fracture (principal); K21.9 Gastro-esophageal reflux disease without esophagitis; Z79.899 Other long term (current) drug therapy; Z88.0 Allergy status to penicillin; Z86.73 Personal history of transient ischemic attack (TIA), and cerebral infarction without residual deficits; Z79.82 Long term (current) use of aspirin; W18.30XA Fall on same level, unspecified, initial encounter
CPT/HCPCS: 99283

== ENCOUNTER → 2024-10-21 | Outpatient (CLI) | payer MEDICARE ==
[2024-10-21 15:15] LABS: WBC 6.21 X 10*3/uL (4.50-10.00)
[2024-10-21 15:16] LABS: Basophils # (A) 0.07 X 10*3/uL (0.00-0.10); Basophils % (A) 1.1 %; Eosinophils # (A) 0.22 X 10*3/uL (0.04-0.35); Eosinophils % (A) 3.5 %; HCT 37.8 % (39.6-50.0); HGB 12.2 g/dL (13.0-17.0); Lymphocytes # (A) 2.19 X 10*3/uL (0.90-5.00); Lymphocytes % (A) 35.3 %; MCH 34.3 pg (27.0-32.0); MCHC 32.3 g/dL (32.0-37.0); MCV 106.2 FL (80.0-97.0); Monocytes # (A) 0.51 X 10*3/uL (0.20-1.00); Monocytes % (A) 8.2 %; NRBC Per 100 WBC 0 X 10*3/uL (0.00-0.01); Neutrophils % (A) 51.6 %; Platelet Count 283 X 10*3/uL (140-440); RBC 3.56 X 10*6/uL (4.40-5.60); RDW 13.5 % (11.5-14.5)
== END | disposition home or self-care (01) ==
LOC: LABWHC1 10:56
DX: D53.1 Other megaloblastic anemias, not elsewhere classified (principal)
CPT/HCPCS: 36415; 85025